=== PATIENT | female | born 2000 | race African-American/Black ===

== ENCOUNTER 2024-12-20 10:23 | Inpatient (IN) | payer MEDICAID, OTHER ==
[~2024-12-20] VITALS: Ht 144.8 cm; Wt 36.0 kg
[2024-12-20] VITALS (24 sets, daily range): BP systolic 86–183; BP diastolic 44–108; PULSE 59–111; RESP 6–21; TEMP 94.5–97.3; O2SAT 89–98
--- NOTE | 2024-12-20 10:45 | ED.PDOC ---
History of Present Illness HPI Comments 24 year old female was BIB Father and Aunt for the c/c of Hypotension. Father states that pt was at her Physical Therapist this am when her BP ran 89/44 and was advised to come to the ED for evaluation. Pt was noted to have a BP of 93/56 upon triage assessment and father notes that is pt's baseline. Pt is noted to have a Hx of Seizures and is wheelchair bound. No other symptoms or modifying factors reported at this time. Time Seen by MD: 10:41 Reviewed Notes: Nurses Notes, Medications, Allergies Allergies: Coded Allergies: NO KNOWN ALLERGIES (Unverified , 12/20/24) Information Source: Relative (Mother) Mode of Arrival: Wheelchair Severity: Mild Timing: Hours Duration: Since onset, Hours Prehospital treatment: None Past Medical History PAST MEDICAL HISTORY: Seizures HOSPITAL CARRIER History: No Pertinent HOSPITAL CARRIER History Family History Family History: No family hx of DM Social History Smoker: Non-Smoker Alcohol: Denies ETOH Use Drugs: Denies Drug Use Lives In: Home Constitutional: denies: chills, diaphoresis, fatigue, fever, malaise, sweats, weakness, others EENTM: denies: blurred vision, double vision, ear bleeding, ear discharge, ear drainage, ear pain, ear ringing, eye pain, eye redness, hearing loss, mouth pain, mouth swelling, nasal discharge, nose bleeding, nose congestion, nose pain, photophobia, tearing, throat pain, throat swelling, voice changes, others Respiratory: denies: cough, hemoptysis, orthopnea, SOB at rest, shortness of breath, SOB with excertion, stridor, wheezing, others Cardiovascular: reports: others (hypotension); denies: chest pain, dizzy spells, diaphoresis, Dyspnea on exertion, edema, irregular heart beat, left arm pain, lightheadedness, palpitations, PND, syncope Gastrointestinal: denies: abdomen distended, abdominal pain, blood streaked bowels, constipated, diarrhea, dysphagia, difficulty swallowing, hematemesis, melena, nausea, poor appetite, poor fluid intake, rectal bleeding, rectal pain, vomiting, others Genitourinary: denies: abnormal vagina bleeding, burning, dyspareunia, dysuria, flank pain, frequency, hematuria, incontinence, pain, , vagina discharge, urgency, others Neurological: denies: dizziness, fainting, headache, left sided numbness, left sided weakness, numbness, paresthesia, pre-existing deficit, right sided numbness, right sided weakness, seizure, speech problems, tingling, tremors, weakness, others Musculoskeletal: denies: back pain, gout, joint pain, joint swelling, muscle pain, muscle stiffness, neck pain, others Integumetry: denies: bruises, change in color, change in hair/nails, dryness, laceration, lesions, lumps, rash, wounds, others Allergic/Immunocompromised: denies: Difficulty Healing, Frequent Infections, Hives, Itching, others Hematologic/Lymphatic: denies: anemia, blood clots, easy bleeding, easy bruising, swollen glands, others Endocrine: denies: excessive hunger, excessive sweating, excessive thirst, excessive urination, flushing, intolerance to cold, intolerance to heat, unexplained weight gain, unexplained weight loss, others Psychiatric: denies: anxiety, bipolar disorder, depression, hopeless, panic disorder, schizophrenia, sleepless, suicidal, others All Other Systems: Reviewed and Negative Physical Exam General Appearance: Moderate Distress, No Apparent Distress HEENT: Pale Conjuntivae (L), Pale Conjuntivae (R), Pharynx Normal, TMs Normal Neck: Full Range of Motion, Non-Tender, Normal, Normal Inspection Respiratory: Chest Non-Tender, Lungs Clear, No Accessory Muscle Use, No Respiratory Distress, Normal Breath Sounds Cardiovascular: Bradycardia, No Edema, No JVD, No Murmur, No Gallop Breast Exam: Deferred Gastrointestinal: No Organomegaly, Non Tender, No Pulsatile Mass, Normal Bowel Sounds, Soft, Other (G-tube) Genitalia: Deferred Pelvic: Deferred Rectal: Deferred Extremities: No pedal edema, Other (Contractures from cerebral palsy) Musculoskeletal : Apperance: Normal Neurologic: Motor Weakness Cerebellar Function: Unable to Test Reflexes: NOT DONE Skin: Dry, Pallor, Warm Lymphatic: No Adenopathy Was a procedure done? Was a procedure done?: No EKG EKG : Pulse Rate (adult): 58 Cornucopia: Normal Cardiac Rhythm: NSR Block: None ST: Nonsp Differential Dx Considerations may include: Sepsis, generalized weakness, electrolyte imbalance, cerebral palsy X-Ray, Labs, Meds, VS Vital Signs Date Time Temp Pulse Resp B/P (MAP) Pulse Ox O2 Delivery O2 Flow Rate FiO2 12/20/24 12:00 58 12/20/24 12:00 62 12 102/63 (76) 95 12/20/24 10:50 94.2 55 20 93/56 (68) 100 94.2 Lab Test 12/20/24 12:03 12/20/24 11:15 Range/Units Urine Color Yellow Yellow Urine Clarity Clear Clear Urine pH 6.5 5.0-9.0 Urine Specific [place] 1.025 1.001-1.035 Urine Protein Negative Negative Urine Ketones Negative Negative Urine Blood Negative Negative /uL Urine Nitrite Negative Negative Urine Bilirubin Negative Negative Urine Urobilinogen Normal Negative mg/dL Urine Leukocyte Esterase Negative Negative /uL Urine RBC 1 0 - 4 /hpf Urine Microscopic WBC < 1 0-5 /HPF Urine Squamous Epithelial Cells Few <5 /hpf Urine Bacteria Few H None Seen /hpf Urine Mucus Few None Seen Urine Glucose Normal Normal mg/dL White Blood Count 3.8 L 4.4-10.8 10^3/uL Red Blood Count 4.91 4.0-5.20 10^6/uL Hemoglobin 15.1 12.2-16.2 g/dL Hematocrit 45.8 36.0-46.0 % Mean Corpuscular Volume 93.3 80.0-100.0 fL Mean Corpuscular Hemoglobin 30.8 28.0-32.0 pg Mean Corpuscular Hemoglobin Concent 33.1 32.0-36.0 g/dL Red Cell Distribution Width 16.3 H 11.8-14.3 % Platelet Count 149 140-450 10^3/uL Mean Platelet Volume 10.5 6.9-10.8 fL Neutrophils (%) (Auto) 45.8 37.0-80.0 % Lymphocytes (%) (Auto) 41.5 10.0-50.0 % Monocytes (%) (Auto) 8.3 0.0-12.0 % Eosinophils (%) (Auto) 4.0 0.0-7.0 % Basophils (%) (Auto) 0.4 0.0-2.0 % Neutrophils # (Auto) 1.7 1.6-8.6 10 ^3/uL Lymphocytes # (Auto) 1.6 0.4-5.4 10 ^3/uL Monocytes # (Auto) 0.3 0-1.3 10 ^3/uL Eosinophils # (Auto) 0.2 0-0.8 10 ^3/uL Basophils # (Auto) 0 0-0.2 10 ^3/uL Nucleated Red Blood Cells 0.3 % Sodium Level 138 136-145 mmol/L Potassium Level 3.1 L 3.5-5.1 mmol/L Chloride Level 106 98-107 mmol/L Carbon Dioxide Level 22 20-31 mmol/L Anion Gap 10 5-15 Blood Urea Nitrogen 11 9-23 mg/dL Creatinine 0.32 L 0.550-1.02 mg/dL Glomerular Filtration Rate Calc 150 >90 mL/min BUN/Creatinine Ratio 34.4 H 10.0-20.0 Serum Glucose 74 74-106 mg/dL Lactic Acid Level 2.3 *H 0.4-2.0 mmol/L Calcium Level 10.1 8.7-10.4 mg/dL Current Medications Medications (Trade) Dose Ordered Sig/Reggie Route Start Time Stop Time Status Last Admin Sodium Chloride 1,000 ml @ 1,000 mls/hr Q1H ONCE IV 12/20/24 12:00 12/20/24 12:59 DC 12/20/24 12:09 Ceftriaxone Sodium 50 ml @ 100 mls/hr ONCE ONCE IV 12/20/24 12:00 12/20/24 12:29 DC 12/20/24 12:11 Vancomycin HCl 200 ml @ 200 mls/hr ONCE ONCE IV 12/20/24 12:00 12/20/24 12:59 DC 12/20/24 12:37 IMPRESSION: 1. Central interstitial prominence may be due to reactive airways disease or CHF. The lungs are otherwise clear. 2. Postoperative changes as detailed above. The patient's CBC is within normal limits The chemistry panel shows hypokalemia at 3.1 We did give the patient potassium IV piggyback The patient was given normal saline as a bolus The patient was also started on Rocephin and vancomycin after blood cultures were done The patient's lactic acid level is elevated at 2.3 The patient was somewhat hypothermic but the family states that the patient is typically running with a temperature of about 95. At this time, the patient is being admitted to the hospitalist Images Reviewed?: Images reviewed and evaluated by me Time of 1ST Reevaluation: 11:11 Reevaluation 1ST: Unchanged Patient Education/Counseling: Diagnosis, Treatment, Prognosis Family Education/Counseling: Diagnosis, Treatment, Prognosis SEPSIS Sepsis Screen Physician Orders Blood Culture (12/20/24 10:52) Heplock Iv (12/20/24 ) Chest Portable (12/20/24 11:55) [place] (12/20/24 ) Potassium Chl 20meq/100ml (12/20/24 13:00) Vital Signs Date Time Temp Pulse Resp B/P (MAP) Pulse Ox O2 Delivery O2 Flow Rate FiO2 12/20/24 12:00 58 12/20/24 12:00 62 12 102/63 (76) 95 12/20/24 10:50 94.2 55 20 93/56 (68) 100 94.2 Laboratory Tests Test 12/20/24 11:15 Lactic Acid Level 2.3 mmol/L (0.4-2.0) *H White Blood Count 3.8 10^3/uL (4.4-10.8) L Medications Medications Dose Ordered Sig/Reggie Route Start Time Stop Time Status Last Admin Dose Admin Ceftriaxone Sodium 50 ml @ 100 mls/hr ONCE ONCE IV 12/20/24 12:00 12/20/24 12:29 DC 12/20/24 12:11 Sodium Chloride 1,000 ml @ 1,000 mls/hr Q1H ONCE IV 12/20/24 12:00 12/20/24 12:59 DC 12/20/24 12:09 Vancomycin HCl 200 ml @ 200 mls/hr ONCE ONCE IV 12/20/24 12:00 12/20/24 12:59 DC 12/20/24 12:37 Departure 1 Departure Time of Disposition: 13:03 Impression: Primary Impression: Hypotension Qualified Codes: I95.9 - Hypotension, unspecified Additional Impressions: Elevated lactic acid level Cerebral palsy Qualified Codes: G80.9 - Cerebral palsy, unspecified Bradycardia Hypokalemia Disposition: ADMITTED INPATIENT Admit to: Tele Condition: Fair Critical Care Note Critical Care Time?: Yes (55 min-critical care time only) Stability Stability form required: Yes Unstable for transfer: Telemetry monitoring (Telemetry monitoring required), ED Physician Assesment (Clinical assesment) Heart Score Heart Score: Heart Score Response (Comments) Value History N/A 0 EKG N/A 0 Age N/A 0 Risk Factors N/A 0 Troponin N/A 0 Total 0 I personally scribed for GOVIND,GHAZALA B MD ([email or web address]) on 12/20/24 at 10:45. Electronically submitted by Thomas López ([email or web address]). I personally scribed for GHAZALA FAUST MD ([email or web address]) on 12/20/24 at 12:35. Electronically submitted by Thomas López ([email or web address]). GHAZALA FAUST MD Dec 20, 2024 10:45
[2024-12-20 11:34] LABS: Hematocrit 45.8 % (36.0-46.0); Hemoglobin 15.1 g/dL (12.2-16.2); Mean Corpuscular Hemoglobin 30.8 pg (28.0-32.0); Mean Corpuscular Volume 93.3 fL (80.0-100.0); Nucleated Red Blood Cells % 0.3 %
[2024-12-20 11:42] LABS: Chloride 106 mmol/L (98-107); Sodium 138 mmol/L (136-145)
[2024-12-20 11:43] LABS: Anion Gap 10 (5-15); Calcium 10.1 mg/dL (8.7-10.4); Carbon Dioxide 22 mmol/L (20-31)
[2024-12-20 11:44] LABS: Potassium 3.1 mmol/L (3.5-5.1)
[2024-12-20 11:48] LABS: BUN/Creatinine Ratio 34.4 (10.0-20.0); Blood Urea Nitrogen 11 mg/dL (9-23); Glucose 74 mg/dL (74-106)
[2024-12-20 11:51] LABS: Lactic Acid w/Reflex 2.3 mmol/L (0.4-2.0)
[2024-12-20] MEDS: SODIUM CHLORIDE 0.9% 1,000 ML IV ONE ×3 (12:09→15:12)
[2024-12-20] MEDS: cefTRIAXone 1GM/50ML D5W 50 ML IV ONE (12:11)
[2024-12-20 12:23] LABS: Urine Protein, UAD Negative (Negative)
--- NOTE | 2024-12-20 12:33 | DVH ---
EXAM: XY CHEST PORTABLE HISTORY: weakness COMPARISON: None TECHNIQUE: Portable upright AP view of the chest was performed. FINDINGS: There is central interstitial prominence. No consolidative infiltrates or pneumothorax. The heart is not enlarged. There are postoperative changes tracheostomy, thoracolumbar posterior fusion, implanted pain pump overlying the right lower abdomen, and PEG tube vs jejunostomy tube. IMPRESSION: 1. Central interstitial prominence may be due to reactive airways disease or CHF. The lungs are othe rwise clear. 2. Postoperative changes as detailed above.
[2024-12-20] MEDS: VANCOMYCIN 1GM/200ML PM 200 ML IV ONE (12:37)
[2024-12-20] MEDS: POTASSIUM CHL 20MEQ/100ML 100 ML IV ONE (15:13)
[2024-12-20] MEDS ORDERED: ALUM1SUS16 GT (15:23)
[2024-12-20] MEDS ORDERED: [UNRECOGNIZED DRUG - CODE] (15:23)
[2024-12-20] MEDS ORDERED: LORA-622 PEG (15:23)
[2024-12-20] MEDS ORDERED: TOPI100T29 PEG (15:23)
--- NOTE | 2024-12-20 15:35 | DVHHP2 ---
History of Present Illness Reason for Visit: Low BP History of Present Illness Xavier Wang is a 24-year-old female with past medical history of cerebral palsy, spasticity, seizures, and chronic respiratory failure, who was brought to the hospital for Low BP. Patient was at physical therapy today and found to have low blood pressure so her father brought her to the hospital. On arrival to the ER she is bradycardic, hypothermic, and hypotensive. She does respond well to fluids with her BP increasing and her HR increasing. She is placed on a bear hugger, rectal thermometer, and blankets for her temperature. Patient lives with her father and aunt. Both are at the bedside. They state her temperature usually runs low around 95-96, but not this low, and that her HR does drop when she sleeps, but not this low. Patient is non verbal and mostly bed bound at her baseline. She has a tracheostomy and peg tube for feedings and mediations. Once the fluids finished from ER her HR and BP began to drop again. I ordered fluids to run at 1255ml/hl and her VS improved. If she is not able to maintain her BP and HR after this liter I will start a vasopressor. Family states she had diarrhea and lose stools for about 1 week. Pulmonary: Other (Chronic respiratory failure) CONFERENCE SERVICES DIRECTOR: Other (cerebral palsy, spasticity, seizures) Past Surgical History: Other (tracheostomy, back, Left hip, Baclofen pump, Peg tube) Smoke: No ALCOHOL: none Drugs: None Lives: with Family Domestic Violence: Neg Review of Systems Constitutional: Yes: Other (hypothermia); No: Fever, Chills, Sweats, Weakness, Malaise Eyes: No: Pain, Vision change, Conjunctivae inflammation, Eyelid inflammation, Other, Redness ENT: No: Ear pain, Ear discharge, Nose pain, Nose discharge, Nose congestion, Mouth pain, Mouth swelling, Throat pain, Throat swelling, Other Respiratory: No: Cough, Dry, Shortness of breath, SOB with excertion, Wheezing, Hemoptysis, Pleuritic Pain, Sputum, Wheezing, Other Cardiovascular: Other (hypotension); No: Chest Pain, Palpitations, Orthopnea, Paroxysmal Noc. Dyspnea, Edema, Lt Headedness Gastrointestinal: Diarrhea; No: Nausea, Vomiting, Abdominal Pain, Constipation, Melena, Hematochezia, Other Genitourinary: No Dysuria, No Frequency, No Incontinence, No Hematuria, No Retention, No Other Musculoskeletal: No: other, neck pain, shoulder pain, arm pain, back pain, hand pain, leg pain, foot pain Skin: No: Rash, Lesions, Jaundice, Bruising, Other Neurological: No: Weakness, Numbness, Incoordination, Change in speech, Confusion, Seizures, Other Allergies: Coded Allergies: NO KNOWN ALLERGIES (Unverified , 12/20/24) Medications Current Medications Medications Dose Ordered Sig/Reggie Route Start Time Stop Time Status Last Admin Dose Admin Metronidazole 100 ml @ 100 mls/hr Q8HR IV 12/20/24 22:00 UNV Exam Vital Signs Vital Signs Date Time Temp Pulse Resp B/P (MAP) Pulse Ox O2 Delivery O2 Flow Rate FiO2 12/20/24 14:00 68 12 100/41 (60) 94 12/20/24 10:50 94.2 94.2 General Appearance: Alert, moderate distress HEENT: Atraumatic, PERRLA Respiratory: Other (tracheostomy, ) Cardiovascular: Other (tracheostomy) Abdominal: Normal bowel sounds, Soft, Other (Peg tube, diarrhea) Skin: No rashes, No breakdown, No significant lesion Neuro: Other (non verbal and bedbound at baseline) Labs/Xrays Labs Test 12/20/24 13:17 12/20/24 12:03 12/20/24 11:15 Range/Units Lactic Acid Level 2.0 0.4-2.0 mmol/L Urine Color Yellow Yellow Urine Clarity Clear Clear Urine pH 6.5 5.0-9.0 Urine Specific [place] 1.025 1.001-1.035 Urine Protein Negative Negative Urine Ketones Negative Negative Urine Blood Negative Negative /uL Urine Nitrite Negative Negative Urine Bilirubin Negative Negative Urine Urobilinogen Normal Negative mg/dL Urine Leukocyte Esterase Negative Negative /uL Urine RBC 1 0 - 4 /hpf Urine Microscopic WBC < 1 0-5 /HPF Urine Squamous Epithelial Cells Few <5 /hpf Urine Bacteria Few H None Seen /hpf Urine Mucus Few None Seen Urine Glucose Normal Normal mg/dL White Blood Count 3.8 L 4.4-10.8 10^3/uL Red Blood Count 4.91 4.0-5.20 10^6/uL Hemoglobin 15.1 12.2-16.2 g/dL Hematocrit 45.8 36.0-46.0 % Mean Corpuscular Volume 93.3 80.0-100.0 fL Mean Corpuscular Hemoglobin 30.8 28.0-32.0 pg Mean Corpuscular Hemoglobin Concent 33.1 32.0-36.0 g/dL Red Cell Distribution Width 16.3 H 11.8-14.3 % Platelet Count 149 140-450 10^3/uL Mean Platelet Volume 10.5 6.9-10.8 fL Neutrophils (%) (Auto) 45.8 37.0-80.0 % Lymphocytes (%) (Auto) 41.5 10.0-50.0 % Monocytes (%) (Auto) 8.3 0.0-12.0 % Eosinophils (%) (Auto) 4.0 0.0-7.0 % Basophils (%) (Auto) 0.4 0.0-2.0 % Neutrophils # (Auto) 1.7 1.6-8.6 10 ^3/uL Lymphocytes # (Auto) 1.6 0.4-5.4 10 ^3/uL Monocytes # (Auto) 0.3 0-1.3 10 ^3/uL Eosinophils # (Auto) 0.2 0-0.8 10 ^3/uL Basophils # (Auto) 0 0-0.2 10 ^3/uL Nucleated Red Blood Cells 0.3 % Sodium Level 138 136-145 mmol/L Potassium Level 3.1 L 3.5-5.1 mmol/L Chloride Level 106 98-107 mmol/L Carbon Dioxide Level 22 20-31 mmol/L Anion Gap 10 5-15 Blood Urea Nitrogen 11 9-23 mg/dL Creatinine 0.32 L 0.550-1.02 mg/dL Glomerular Filtration Rate Calc 150 >90 mL/min BUN/Creatinine Ratio 34.4 H 10.0-20.0 Serum Glucose 74 74-106 mg/dL Calcium Level 10.1 8.7-10.4 mg/dL EXAM: XY CHEST PORTABLE FINDINGS: There is central interstitial prominence. No consolidative infiltrates or pneumothorax. The heart is not enlarged. There are postoperative changes tracheostomy, thoracolumbar posterior fusion, implanted pain pump overlying the right lower abdomen, and PEG tube vs jejunostomy tube. IMPRESSION: 1. Central interstitial prominence may be due to reactive airways disease or CHF. The lungs are otherwise clear. 2. Postoperative changes as detailed above. Assessment/Plan Assessment/Plan Assessment: Hypotension, Hypokalemia, Bradycardia, Hypothermia, Possible pericarditis, Cerebral Palsy, Seizures, Plan: Admit to Tele, Cardiology consult, Dietary consult, ECHO, Send stool for C-Diff, WBC, occult blood, Blood cultures, Urine cultures, Sputum cultures, IV hydration, IV antibiotics, Family to bring in her formula for tube feedings, Home medications reconciled, Plan discussed with: Patient, Other (Father, Aunt) My Orders Orders - RUBI PAUL Procedure Category Date Status Time Admit ADMIT 12/20/24 Transmitted 14:41 Code Status CODE 12/20/24 Transmitted 14:41 Complete Blood Count LAB 12/21/24 Verified 04:00 Comprehensive LAB 12/21/24 Verified Metabolic Panel 04:00 Npo (Nothing By DIET 12/20/24 Transmitted Mouth) Diet Dinner Condition: Serious PRINCE 12/20/24 In Process 14:41 Tube Feeding DIET 12/20/24 Transmitted Dinner * Dietary Consult CONS 12/20/24 Transmitted 14:41 Metronidazole PHA 12/20/24 Logged 500mg/100ml (Flagyl 22:00 Sodium Chloride 0.9% PHA 12/20/24 Logged 14:45 Potassium Chloride PHA 12/20/24 Logged (Potassium Chloride). 14:45 Respiratory Culture MARCELO 12/20/24 Logged W/ Gs 14:49 Urine Bacterial MARCELO 12/20/24 Logged Culture 14:49 Sodium Chloride 0.9% PHA 12/20/24 In Process 15:00 Date of Service: Dec 20, 2024 Billing Provider: RUBI PAUL Common Visit Codes: [id number] INP/OBS CARE (MOD) RUBI PAUL Dec 20, 2024 15:35
--- NOTE | 2024-12-20 17:13 | DVHINCON2 ---
Date Seen: Dec 20, 2024 Referring Physician ARISTIDES Rahman Reason for Consultation Acute pericarditis, hypotension History of Present Illness This is a 24-year-old female who presented to the emergency room via EMS with a chief complaint of hypotension. Information obtained from and and father at bedside who reports the patient was found with a blood pressure of 84/49 mmHg raising concerns as her normal SBP is in the 90s mmHg. Besides the reported hypotension they also reported a one time event of diarrhea last week. They deny any other symptoms or concerns. She underwent a twelve-lead electrocardiogram suggestive of acute pericarditis. The patient was also found to be hypothermic with a temperature of 91.4 F rectally. Per father, her normal core temperature is in between 94-96 F. Significant medical history includes cerebral palsy with PEG tube placement and bed-bound status, spasticity, chronic respiratory failure with tracheostomy tube in place, baclofen pump, and history of pediatric seizures. Past Medical History Past medical history reviewed. No other significant than mentioned above. Past Surgical History Tracheostomy tube Peg tube in place Baclofen pump Left hip Back Family History Family history reviewed. Not significant for cardiovascular disease. Social History Per family, there is no use of illicit drugs, alcohol, or tobacco use. Allergies: Coded Allergies: NO KNOWN ALLERGIES (Unverified , 12/20/24) Home Meds Reported Medications Topiramate (Topamax) 100 Mg Tab, 1 TAB PEG BID, #60 TAB 1 Refill 12/20/24 Loratadine (Claritin) 10 Mg Tab, 1 TAB PEG DAILY, #30 TAB 5 Refills 12/20/24 Phenylephrine HCl (Vipin-Synephrine Cold+Aller) 1 % Petty, 1 % NA BID, ML 12/20/24 Alum & Mag Hydrox-Simethicone (Mylanta Maximum Strength 400-400-40 mg/5Ml) 1 Jojo Jojo, 5 ML GT DAILY, ML 12/20/24 Home Meds Home medications reviewed. Current Medications Current Medications Medications (Trade) Dose Ordered Sig/Reggie Route PRN Reason Start Time Stop Time Status Last Admin Metronidazole 100 ml @ 100 mls/hr Q8HR IV 12/20/24 22:00 Loratadine (Claritin Tablet) 10 mg DAILY PEG 12/21/24 10:00 Phenylephrine HCl (Vipin-Synephrine 1% Nasal) 1 spr BID NA 12/20/24 22:00 Topiramate (Topamax) 100 mg BID PEG 12/20/24 22:00 Patient Own Medication 5 ml DAILY GT 12/21/24 10:00 UNV Review of Systems Constitutional: Hypotension Ears, Nose, & Throat: No symptom reported Eyes: No symptom reported Neurological: No symptoms reported Pulmonary/Respiratory: No symptom reported Cardiovascular: No symptom reported Gastrointestinal: Diarrhea Genitourinary: No symptom reported Musculoskeletal: No symptom reported Skin: No symptom reported Psychiatric: No symptom reported Endocrine: No symptom reported Hemotologic/Lymphatic: No symptom reported Vital Signs Vital Signs Date Time Temp Pulse Resp B/P (MAP) Pulse Ox O2 Delivery O2 Flow Rate FiO2 12/20/24 16:00 91.4 54 12 95/46 (62) 94 91.4 12/20/24 11:00 Room Air* 0 21 Physical Exam General Appearance: Withdrawn. Spastic/contracted. Nonverbal. Growth and developmental delay present Head Exam: Normal inspection Neck Exam: Normal inspection. Pulmonary/Respiratory: Diminished bilateral breath sounds. Tracheostomy tubed in place Cardiovascular/Chest: Regular rate and rhythm. S1, S2. Diffuse ST elevation suggestive of acute pericarditis. No murmurs. No JVD. Peripheral Pulses: 2+ Radial (R). 2+ Radial (L). 2+ Pedal (R). 2+ Pedal (L) Abdominal Exam: Normal bowel sounds. Soft. Ankle Exam: Negative ankle edema Lower extremities: Negative lower extremity edema Neuro/Mental Status: Withdrawn. Non-verbal Thoughts/Psych: Unable to assess Appearance: In no acute distress Skin Exam: Normal inspection. Normal color. Cold. Dry Labs/Diagnostic Data Labs Test 12/20/24 13:17 12/20/24 12:03 12/20/24 11:15 Range/Units Lactic Acid Level 2.0 0.4-2.0 mmol/L Urine Color Yellow Yellow Urine Clarity Clear Clear Urine pH 6.5 5.0-9.0 Urine Specific [place] 1.025 1.001-1.035 Urine Protein Negative Negative Urine Ketones Negative Negative Urine Blood Negative Negative /uL Urine Nitrite Negative Negative Urine Bilirubin Negative Negative Urine Urobilinogen Normal Negative mg/dL Urine Leukocyte Esterase Negative Negative /uL Urine RBC 1 0 - 4 /hpf Urine Microscopic WBC < 1 0-5 /HPF Urine Squamous Epithelial Cells Few <5 /hpf Urine Bacteria Few H None Seen /hpf Urine Mucus Few None Seen Urine Glucose Normal Normal mg/dL White Blood Count 3.8 L 4.4-10.8 10^3/uL Red Blood Count 4.91 4.0-5.20 10^6/uL Hemoglobin 15.1 12.2-16.2 g/dL Hematocrit 45.8 36.0-46.0 % Mean Corpuscular Volume 93.3 80.0-100.0 fL Mean Corpuscular Hemoglobin 30.8 28.0-32.0 pg Mean Corpuscular Hemoglobin Concent 33.1 32.0-36.0 g/dL Red Cell Distribution Width 16.3 H 11.8-14.3 % Platelet Count 149 140-450 10^3/uL Mean Platelet Volume 10.5 6.9-10.8 fL Neutrophils (%) (Auto) 45.8 37.0-80.0 % Lymphocytes (%) (Auto) 41.5 10.0-50.0 % Monocytes (%) (Auto) 8.3 0.0-12.0 % Eosinophils (%) (Auto) 4.0 0.0-7.0 % Basophils (%) (Auto) 0.4 0.0-2.0 % Neutrophils # (Auto) 1.7 1.6-8.6 10 ^3/uL Lymphocytes # (Auto) 1.6 0.4-5.4 10 ^3/uL Monocytes # (Auto) 0.3 0-1.3 10 ^3/uL Eosinophils # (Auto) 0.2 0-0.8 10 ^3/uL Basophils # (Auto) 0 0-0.2 10 ^3/uL Nucleated Red Blood Cells 0.3 % Sodium Level 138 136-145 mmol/L Potassium Level 3.1 L 3.5-5.1 mmol/L Chloride Level 106 98-107 mmol/L Carbon Dioxide Level 22 20-31 mmol/L Anion Gap 10 5-15 Blood Urea Nitrogen 11 9-23 mg/dL Creatinine 0.32 L 0.550-1.02 mg/dL Glomerular Filtration Rate Calc 150 >90 mL/min BUN/Creatinine Ratio 34.4 H 10.0-20.0 Serum Glucose 74 74-106 mg/dL Calcium Level 10.1 8.7-10.4 mg/dL Assessment Acute pericarditis Rule out structural/congenital heart disease Likely hypothermia induced bradycardia Possible sepsis with mild degree of shock Cerebral palsy with PEG tube/tracheostomy/bed-bound status Hypokalemia Plan/Recommendation (Dr. Daugherty) We will continue further cardiac evaluation with a transthoracic echocardiogram with a bubble study to evaluate cardiac function. In the meantime, check ESR/CRP levels as well as obtaining influenza A&B and COVID-19 samples. Patient will be initiated on pericarditis treatment including colchicine 0.6 mg GT QD x 3 mos, ibuprofen 600 mg GT q8h for 1 week, and pantoprazole 40 mg QD. Monitor ECG changes closely and notify. Repeat ECG in the morning. Continue warming measures for a temperature in between 94-96 F (normal core temperature for patient). Replete electrolytes as necessary. Septic workup per primary care team. Further orders per clinical course. Thank you for allowing us to participate in this patient's care. Please call if you have any questions or concerns. This medical document was created using an electronic medical record system with voice recognition software and computerized dictation system. Although this document has been carefully reviewed, there might still be some phonetic and typographical errors. Occasional wrong-word or ``sound-alike substitutions may have occurred due to the inherent limitations of voice recognition software. These areas are purely typographical due to imperfections of the software programs and do not reflect any compromise in the patient's medical care. Please read the chart carefully and recognize, using context, where these substitutions have occurred. Plan discussed with: Other (Father and aunt) NYHA Physical activity limitations: NA Date of Service: Dec 20, 2024 Billing Provider: GINO ANGELO Cardiology Common Codes: [id number] INP/OBS CARE (High) GINO ANGELO Dec 20, 2024 17:13
[2024-12-20] MEDS: POTASSIUM CHLORIDE 40 MEQ, LIDOCAINE 1% (LOCAL ANESTH.) 4 ML in SODIUM CHL 0.9% 250 ML IV ONE (17:20)
[2024-12-20 17:24] LABS: Triglycerides 110.0 mg/dL (< 150)
[2024-12-20 17:26] LABS: Cholesterol 161.0 mg/dL (< 200)
[2024-12-20 17:32] LABS: HDL Cholesterol 36.0 mg/dL (40-59); Magnesium 1.4 mg/dL (1.6-2.6)
[2024-12-20 17:44] LABS: COVID19 ANTIGEN SOFIA FIA NEGATIVE (NEGATIVE)
[2024-12-20] MEDS: PANTOPRAZOLE 40 MG/10 ML VIAL INJ IV ONE (17:53)
[2024-12-20] MEDS: FREE WATER PEG SCH (20:00)
[2024-12-20] MEDS ORDERED: POTASSIUM CHL 20 Meq TABLET PO ONE (21:15)
[2024-12-20] MEDS: PHENYLEPHRINE HCL 1 % NASAL SPRAY 15ML SCH (22:00)
--- NOTE | 2024-12-20 22:11 | DVHSR ---
APPROVED REPORT EXAM: Two-dimensional and M-mode echocardiogram with Doppler and color Doppler. Blood Pressure: 95/46 mmHg INDICATION Acute pericarditis RISK FACTORS Height: 4'1", Weight: 158 DIMENSIONS LVDd3.1 (3.8-5.7cm)LA (2D)2.6 (1.9-4.0cm)Aortic Root2.0 (2.0-3.7cm) LVDs2.1 (2.5-4.0cm)LA (MM) (1.9-4.0cm)Aortic Cusp Exc1.3 (1.5-2.0cm) EF (%) 60.0 (55-70%)Rt. Atrium2.5 (1.9-4.0cm)Asc. Aorta cm IVSd0.7 (0.7-1.1cm)RV (D) (1.8-2.4cm) PWd0.6 (0.7-1.1cm) Mitral Valve MitralMitral Stenosis E wave0.77m/sMV Mean GR.mmHg A wave0.70m/sMV Peak GR.mmHg E/A ratio1.12D MVAcm2 DECEL [id number] 1/2 Timems Aortic Valve Aortic ValveAortic Stenosis V10.73m/Jumana Mean GR.2mmHg V20.90m/Jumana Peak GR.3mmHg LVOT Diameter1.5 (1.8-2.4cm)Doppler AVA1.43cm2 Other Information Technically limited study due to body habitus. Conclusion LV EF IS 65 % AND IS NORMAL NORMAL VALVES NORMAL RV FUNCTION NO EFFUSION
[2024-12-20] MEDS: MAGNESIUM SULFATE 1GM/100ML 100 ML IV SCH (23:00)
[2024-12-20] MEDS: COLCHICINE 0.6 MG CAP GT ONE (23:12)
[2024-12-20] MEDS: IBUPROFEN 100MG/5ML ORAL SUSP 100 MG/5 ML UD GT SCH (23:12)
[2024-12-20] MEDS: PHENobarbital 20 MG/5 ML UD GT SCH (23:13)
[2024-12-20] MEDS: POTASSIUM EFFERVESENT TAB 25 MEQ GT ONE (23:13)
[2024-12-20] MEDS: TOPIRAMATE 100 MG TAB PEG SCH (23:14)
--- NOTE | 2024-12-20 23:27 | DVHINCON2 ---
Date Seen: Dec 20, 2024 Referring Physician ARISTIEDS Rahman Reason for Consultation Acute pericarditis, hypotension History of Present Illness This is a 24-year-old female with a PMH of cerebral palsy with PEG tube placement and bed-bound status, spasticity, chronic respiratory failure with tracheostomy tube in place, baclofen pump, and history of pediatric seizures who presented to the emergency room via EMS with a complaint of hypotension. Information obtained from and and father at bedside who reports the patient was found with a blood pressure of 84/49 mmHg raising concerns as her normal SBP is in the 90s mmHg. Besides the reported hypotension they also reported a one time event of diarrhea last week. They deny any other symptoms or concerns. She underwent a twelve-lead electrocardiogram suggestive of acute pericarditis. The patient was also found to be hypothermic with a temperature of 91.4 F rectally. Per father, her normal core temperature is in between 94-96 F. Patient was admitted to the hospital. I am asked to consult on this patient. Past Medical History Past medical history reviewed. No other significant than mentioned above. Past Surgical History Tracheostomy tube Peg tube in place Baclofen pump Left hip Back Family History: Diabetes mellitus G8 FATHER Hypertension G8 FATHER Allergies: Coded Allergies: NO KNOWN ALLERGIES (Unverified , 12/20/24) Home Meds Reported Medications Topiramate (Topamax) 100 Mg Tab, 1 TAB PEG BID, #60 TAB 1 Refill 12/20/24 Loratadine (Claritin) 10 Mg Tab, 1 TAB PEG DAILY, #30 TAB 5 Refills 12/20/24 Phenylephrine HCl (Vipin-Synephrine Cold+Aller) 1 % Petty, 1 % NA BID, ML 12/20/24 Alum & Mag Hydrox-Simethicone (Mylanta Maximum Strength 400-400-40 mg/5Ml) 1 Jojo Jojo, 5 ML GT DAILY, ML 12/20/24 Current Medications Current Medications Medications (Trade) Dose Ordered Sig/Reggie Route PRN Reason Start Time Stop Time Status Last Admin Metronidazole 100 ml @ 100 mls/hr Q8HR IV 12/20/24 22:00 12/20/24 23:14 Loratadine (Claritin Tablet) 10 mg DAILY PEG 12/21/24 10:00 Phenylephrine HCl (Vipin-Synephrine 1% Nasal) 1 spr BID NA 12/20/24 22:00 Topiramate (Topamax) 100 mg BID PEG 12/20/24 22:00 12/20/24 23:14 Patient Own Medication 5 ml DAILY GT 12/21/24 10:00 UNV Al Hydrox/Mg Hydrox/Simethicone (Maalox Plus) 5 ml DAILY GT 12/21/24 10:00 Phenobarbital 36 mg BID GT 12/20/24 22:00 12/20/24 23:13 Colchicine (Colcrys) 0.6 mg DAILY GT 12/21/24 10:00 Ibuprofen (MOTRIN 100MG/5 mL ORAL SUSP) 800 mg Q8HR GT 12/20/24 22:00 12/20/24 23:12 Pantoprazole Sodium (Protonix) 40 mg DAILY IV 12/21/24 10:00 Patient Own Medication 150 ml QID PEG 12/20/24 20:00 UNV Purified Water 120 ml QID PEG 12/20/24 20:00 Magnesium Sulfate/ Dextrose 100 ml @ 100 mls/hr Q1HR IV 12/20/24 23:00 12/21/24 00:59 Review of Systems Constitutional: Hypotension Ears, Nose, & Throat: No symptom reported Eyes: No symptom reported Neurological: No symptoms reported Pulmonary/Respiratory: No symptom reported Cardiovascular: No symptom reported Gastrointestinal: Diarrhea Genitourinary: No symptom reported Musculoskeletal: No symptom reported Skin: No symptom reported Psychiatric: No symptom reported Endocrine: No symptom reported Hemotologic/Lymphatic: No symptom reported Vital Signs Vital Signs Date Time Temp Pulse Resp B/P (MAP) Pulse Ox O2 Delivery O2 Flow Rate FiO2 12/20/24 19:00 95.0 68 13 103/58 (73) 97 203.0 12/20/24 18:04 Room Air* 0 N/A Trach Collar Physical Exam GENERAL: Withdrawn. Spastic/contracted. Nonverbal. Growth and developmental delay present. EYES: PERRL, EOMI. Anicteric. HENT: Moist mucous membranes. LUNGS: Diminished bilateral breath sounds. Tracheostomy tubed in place CARDIOVASCULAR: Regular rate and rhythm. ABDOMEN: Soft, non-tender and non-distended. EXTREMITIES: No edema. SKIN: Warm, dry. Labs/Diagnostic Data Labs Test 12/20/24 17:44 12/20/24 17:14 12/20/24 13:17 12/20/24 12:03 Range/Units Erythrocyte Sedimentation Rate 15 0-20 mm/hr B-Type Natriuretic Peptide 10.25 0-100 pg/mL Influenza Type A Antigen Negative Negative Influenza Type B Antigen Negative Negative SARS-CoV-2 Antigen (Rapid) Negative NEGATIVE Lactic Acid Level 2.0 0.4-2.0 mmol/L Urine Color Yellow Yellow Urine Clarity Clear Clear Urine pH 6.5 5.0-9.0 Urine Specific [place] 1.025 1.001-1.035 Urine Protein Negative Negative Urine Ketones Negative Negative Urine Blood Negative Negative /uL Urine Nitrite Negative Negative Urine Bilirubin Negative Negative Urine Urobilinogen Normal Negative mg/dL Urine Leukocyte Esterase Negative Negative /uL Urine RBC 1 0 - 4 /hpf Urine Microscopic WBC < 1 0-5 /HPF Urine Squamous Epithelial Cells Few <5 /hpf Urine Bacteria Few H None Seen /hpf Urine Mucus Few None Seen Urine Glucose Normal Normal mg/dL Test 12/20/24 11:15 Range/Units White Blood Count 3.8 L 4.4-10.8 10^3/uL Red Blood Count 4.91 4.0-5.20 10^6/uL Hemoglobin 15.1 12.2-16.2 g/dL Hematocrit 45.8 36.0-46.0 % Mean Corpuscular Volume 93.3 80.0-100.0 fL Mean Corpuscular Hemoglobin 30.8 28.0-32.0 pg Mean Corpuscular Hemoglobin Concent 33.1 32.0-36.0 g/dL Red Cell Distribution Width 16.3 H 11.8-14.3 % Platelet Count 149 140-450 10^3/uL Mean Platelet Volume 10.5 6.9-10.8 fL Neutrophils (%) (Auto) 45.8 37.0-80.0 % Lymphocytes (%) (Auto) 41.5 10.0-50.0 % Monocytes (%) (Auto) 8.3 0.0-12.0 % Eosinophils (%) (Auto) 4.0 0.0-7.0 % Basophils (%) (Auto) 0.4 0.0-2.0 % Neutrophils # (Auto) 1.7 1.6-8.6 10 ^3/uL Lymphocytes # (Auto) 1.6 0.4-5.4 10 ^3/uL Monocytes # (Auto) 0.3 0-1.3 10 ^3/uL Eosinophils # (Auto) 0.2 0-0.8 10 ^3/uL Basophils # (Auto) 0 0-0.2 10 ^3/uL Nucleated Red Blood Cells 0.3 % Sodium Level 138 136-145 mmol/L Potassium Level 3.1 L 3.5-5.1 mmol/L Chloride Level 106 98-107 mmol/L Carbon Dioxide Level 22 20-31 mmol/L Anion Gap 10 5-15 Blood Urea Nitrogen 11 9-23 mg/dL Creatinine 0.32 L 0.550-1.02 mg/dL Glomerular Filtration Rate Calc 150 >90 mL/min BUN/Creatinine Ratio 34.4 H 10.0-20.0 Serum Glucose 74 74-106 mg/dL Hemoglobin A1c 4.8 <5.7 % A1C Calcium Level 10.1 8.7-10.4 mg/dL Magnesium Level 1.4 L 1.6-2.6 mg/dL Troponin I High Sensitivity 6 </=34 ng/L C-Reactive Protein High Sensitivity 1.34 H <1.0 mg/dL Triglycerides Level 110 < 150 mg/dL Cholesterol Level 161 < 200 mg/dL LDL Cholesterol 109 H < 100 mg/dL HDL Cholesterol 36 L 40-59 mg/dL Thyroid Stimulating Hormone (TSH) 2.80 0.55-4.78 uIU/mL Assessment Acute pericarditis. Rule out structural/congenital heart disease. Likely hypothermia induced bradycardia. Possible sepsis with mild degree of shock. Cerebral palsy with PEG tube/tracheostomy/bed-bound status. Hypokalemia. Plan/Recommendation I agree with your ongoing assessment and care of plan. Patient has been seen by Myriam Bellamy NP on my behalf. We have discussed the plan with the patient. We will continue further cardiac evaluation with a transthoracic echocardiogram with a bubble study to evaluate cardiac function. In the meantime, check ESR/CRP levels as well as obtaining influenza A&B and COVID-19 samples. Patient will be initiated on pericarditis treatment including colchicine 0.6 mg GT QD x 3 mos, ibuprofen 600 mg GT q8h for 1 week, and pantoprazole 40 mg QD. Monitor ECG changes closely and notify. Repeat ECG in the morning. C ontinue warming measures for a temperature in between 94-96 F (normal core temperature for patient). Replete electrolytes as necessary. Septic workup per primary care team. Further orders per clinical course. Additional plan as per the hospital course. Plan discussed with: Other NYHA Physical activity limitations: NA Date of Service: Dec 20, 2024 Billing Provider: LINDY CÁRDENAS MD Cardiology Common Codes: [id number] INP/OBS CARE (High) Cardiology Consultation Codes: [id number] CONSULT <80MIN LINDY CÁRDENAS MD Dec 20, 2024 23:27
[2024-12-21] VITALS (82 sets, daily range): BP systolic 71–132; BP diastolic 30–96; PULSE 43–107; RESP 0–33; TEMP 93.9–97.7; O2SAT 84–100
[2024-12-21] MEDS: ALBUMIN 25% 100 ML IV ONE (01:11)
[2024-12-21] MEDS: SODIUM CHLORIDE 0.9% 500 ML IV ONE (01:45)
[2024-12-21 05:51] LABS: Anion Gap 8 (5-15)
[2024-12-21 05:52] LABS: Chloride 113 mmol/L (98-107); Potassium 5.2 mmol/L (3.5-5.1); Sodium 142 mmol/L (136-145)
[2024-12-21 05:53] LABS: Calcium 8.3 mg/dL (8.7-10.4); Carbon Dioxide 21 mmol/L (20-31)
[2024-12-21 05:56] LABS: BUN/Creatinine Ratio 28.3 (10.0-20.0)
[2024-12-21 06:01] LABS: Alanine Aminotransferase 45 U/L (7-40); Albumin 3.8 g/dL (3.2-4.8); Alkaline Phosphatase 149 U/L (46-116); Bilirubin, Total < 0.2 mg/dL (0.2-1.0); Blood Urea Nitrogen 15 mg/dL (9-23); Glucose 94 mg/dL (74-106); Total Protein 6.0 g/dL (5.7-8.2)
[2024-12-21 06:57] LABS: Hematocrit 39.8 % (36.0-46.0); Hemoglobin 12.9 g/dL (12.2-16.2); Mean Corpuscular Hemoglobin 31.0 pg (28.0-32.0); Mean Corpuscular Volume 95.9 fL (80.0-100.0); Nucleated Red Blood Cells % 0.1 %
[2024-12-21] MEDS: [UNRECOGNIZED DRUG - MIXTURE] PEG SCH (09:00)
[2024-12-21] MEDS: COLCHICINE 0.6 MG CAP GT SCH (09:09)
[2024-12-21] MEDS: PANTOPRAZOLE 40 MG/10 ML VIAL INJ IV SCH (09:09)
[2024-12-21] MEDS: MAALOX PLUS or MAALOX 30 ML GT SCH (09:10)
[2024-12-21] MEDS: LORATADINE 10 MG TAB PEG SCH (09:11)
[2024-12-21] MEDS: SODIUM ZIRCONIUM CYCL 10 GM PAK GT ONE (09:18)
[2024-12-21] MEDS ORDERED: MAGNESIUM HYDROXIDE GT SCH (10:00)
[2024-12-21] MEDS ORDERED: ALUMINUM HYDROXIDE GT SCH (10:00)
[2024-12-21] MEDS ORDERED: SIMETHICONE GT SCH (10:00)
[2024-12-21] MEDS ORDERED: [UNRECOGNIZED DRUG - OTHER] GT SCH (10:00)
--- NOTE | 2024-12-21 10:08 | ECG ---
[facility] Test Date: 2024-12-20 Test Time: 12:42:02 Pat Name: PHOENIX BAUM Department: ED Room: [address] [place] [address] A Gender: F [employer] Director: SUSAN : 2000 Requested By: GINO ANGELO Order Number: [id number] Reading MD: Randal Toscano Measurements Intervals [place] Rate: 51 P: 27 AL: 177 QRS: 42 QRSD: 84 T: 63 QT: 489 QTc: 451 Interpretive Statements Sinus rhythm ST elevation suggests acute pericarditis Electronically Signed On 12-23-2024 9:48:46 PDT by Randal Toscano Please click the below link to view image of tracing.
--- NOTE | 2024-12-21 11:18 | DVHPN2 ---
Consult Progress Note Date Seen: Dec 21, 2024 Subjective Other Systems: No overnight cardiac events reported Objective vital signs Vital Sign Date Time Temp Pulse Resp B/P (MAP) Pulse Ox O2 Delivery O2 Flow Rate FiO2 12/21/24 09:12 97 Room Air* 0 21 12/21/24 06:40 97.2 98 16 118/71 (87) 207.0 Total Intake and Output 12/20/24 12/20/24 12/21/24 15:00 23:00 07:00 Intake Total 0 ml 400 ml Output Total 1 ml Balance 0 ml 399 ml medications Current Medications Medications Dose Ordered Sig/Reggie Route Start Time Stop Time Status Last Admin Dose Admin Metronidazole 100 ml @ 100 mls/hr Q8HR IV 12/20/24 22:00 12/21/24 06:20 100 MLS/HR Loratadine 10 mg DAILY PEG 12/21/24 10:00 Phenylephrine HCl 1 spr BID NA 12/20/24 22:00 Topiramate 100 mg BID PEG 12/20/24 22:00 12/21/24 09:09 100 MG Patient Own Medication 5 ml DAILY GT 12/21/24 10:00 UNV Al Hydrox/Mg Hydrox/Simethicone 5 ml DAILY GT 12/21/24 10:00 12/21/24 09:10 5 ML Phenobarbital 36 mg BID GT 12/20/24 22:00 12/21/24 09:10 36 MG Colchicine 0.6 mg DAILY GT 12/21/24 10:00 12/21/24 09:09 0.6 MG Ibuprofen 800 mg Q8HR GT 12/20/24 22:00 12/20/24 23:12 800 MG Pantoprazole Sodium 40 mg DAILY IV 12/21/24 10:00 12/21/24 09:09 40 MG Patient Own Medication 150 ml QID PEG 12/20/24 20:00 Purified Water 120 ml QID PEG 12/20/24 20:00 Examination: LUNGS:Abnormal (Tracheostomy tube in place), CVS:Normal (Sinus rhythm with ST elevation on monitor), NEURO:Abnormal laboratory and microbiology Laboratory Tests 12/21/24 06:10 12/21/24 05:12 Test 12/21/24 05:12 Range/Units Serum Glucose 94 74-106 mg/dL Problem List/Assessment/Plan Problem List/Assessment/Plan Acute pericarditis Possible sepsis with mild degree of shock Likely hypothermia induced bradycardia, resolved Cerebral palsy with PEG tube/tracheostomy/bed-bound status Hypokalemia/hypomagnesemia Plan/Recommendation (Dr. Daugherty) Transthoracic echocardiogram revealed LVEF of 65%. Continue pericarditis treatment including colchicine 0.6 mg GT QD x 3 mos, ibuprofen 600 mg GT q8h for 1 week, and pantoprazole 40 mg QD. Replete electrolytes as necessary. Septic workup per primary care team if deemed necessary. There is no further cardiac work-up indicated at this time. Kindly call if in need to re-consult. Thank you for allowing us to participate in this patient's care. Please call if you have any questions or concerns. This medical document was created using an electronic medical record system with voice recognition software and computerized dictation system. Although this document has been carefully reviewed, there might still be some phonetic and typographical errors. Occasional wrong-word or ``sound-alike substitutions may have occurred due to the inherent limitations of voice recognition software. These areas are purely typographical due to imperfections of the software programs and do not reflect any compromise in the patient's medical care. Please read the chart carefully and recognize, using context, where these substitutions have occurred. Plan discussed with: Other (Father) Dietary Evaluation Review Comments: Nutrition Recommendation 1) TF [place] 5.5oz x 6 OR per day providing 975 kcal (98% energy needs) & 48gm protein (100% protein needs) 2) Water flush 40ml if allowed 3) MVI w/ minerals 1 tab daily 4) Consider TPN if pt cannot tolerate TF Expected Outcomes/Goals: intake to meet at least 75% estimated needs FU 2-3 days Date of Service: Dec 21, 2024 Billing Provider: GINO ANGELO Cardiology Common Codes: [id number] INP/OBS CARE(Mod) GINO ANGELO Dec 21, 2024 11:18
[2024-12-21] MEDS ORDERED: ENOXAPARIN SOD 40 MG/0.4 ML SYRINGE SC SCH (12:39)
--- NOTE | 2024-12-21 13:47 | DVHPNRES ---
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 According to the patient's father at bedside, patient had gone for her physical therapy session where she was noted to have a blood pressure of 84/49 with a heart rate in the 50s which is what prompted this visit to the hospital. Per patient's father, patient will often have similar symptoms where her heart rate will go down to as low as 36 while she is sleeping, they know this because her alarm will beep when HR < 36; denies any symptoms of dizziness, nausea, weakness at the time of low blood pressure and heart rate. Review of systems could not be adequately completed as patient is nonverbal. However, per patient's father, 1 week ago patient did have 1 episode of diarrhea only. Past surgical history: Right hip surgery, back surgery for scoliosis, abdominal surgery Past Hospitalization: Denies any hospitalization in the past 6 months Social & Personal history: Smoking: Denies Drugs: Denies Alcohol: Denies Patient lives with father Allergies: Denies Objective vital signs Vital Sign Date Time Temp Pulse Resp B/P (MAP) Pulse Ox O2 Delivery O2 Flow Rate FiO2 12/21/24 13:00 94.6 66 7 98/60 (73) 96 202.3 12/21/24 12:00 Room Air* 0 N/A Trach Collar Total Intake and Output 12/20/24 12/20/24 12/21/24 15:00 23:00 07:00 Intake Total 0 ml 400 ml Output Total 1 ml Balance 0 ml 399 ml medications Current Medications Medications Dose Ordered Sig/Reggie Route Start Time Stop Time Status Last Admin Dose Admin Metronidazole 100 ml @ 100 mls/hr Q8HR IV 12/20/24 22:00 12/21/24 06:20 100 MLS/HR Loratadine 10 mg DAILY PEG 12/21/24 10:00 Phenylephrine HCl 1 spr BID NA 12/20/24 22:00 Topiramate 100 mg BID PEG 12/20/24 22:00 12/21/24 09:09 100 MG Patient Own Medication 5 ml DAILY GT 12/21/24 10:00 UNV Al Hydrox/Mg Hydrox/Simethicone 5 ml DAILY GT 12/21/24 10:00 12/21/24 09:10 5 ML Phenobarbital 36 mg BID GT 12/20/24 22:00 12/21/24 09:10 36 MG Colchicine 0.6 mg DAILY GT 12/21/24 10:00 12/21/24 09:09 0.6 MG Ibuprofen 800 mg Q8HR GT 12/20/24 22:00 12/20/24 23:12 800 MG Pantoprazole Sodium 40 mg DAILY IV 12/21/24 10:00 12/21/24 09:09 40 MG Patient Own Medication 150 ml QID PEG 12/20/24 20:00 12/21/24 12:33 150 ML Purified Water 120 ml QID PEG 12/20/24 20:00 12/21/24 12:33 120 ML Enoxaparin Sodium 40 mg DAILY SC 12/22/24 10:00 Examination General Appearance: Resting. Trach in place. Moist mucous membranes. Equal and reactive pupils. Head Exam: Normal inspection Neck Exam: Normal inspection. Non-tender. Normal alignment Pulmonary/Respiratory: Chest non-tender. Clear bilateral breath sounds, no crackles, no wheezing. Cardiovascular/Chest: Regular rate and rhythm. No murmurs. No JVD. Peripheral Pulses: 2+ Radial (R). 2+ Radial (L). 2+ Pedal (R). 2+ Pedal (L) Abdominal Exam: Normal bowel sounds. Soft. normal abdomen, no visible veins, Nontender. No hepatospenomegaly. PEG tube left middle abdomen, baclofen pump right lower quadrant. Ankle Exam: Negative ankle edema Lower extremities: Negative lower extremity edema Skin Exam: Old healed wounds noted on bilateral heels. Skin tear noted on right buttock laboratory and microbiology Laboratory Tests 12/21/24 11:35 12/21/24 06:10 12/21/24 05:12 Test 12/21/24 05:12 Range/Units Serum Glucose 94 74-106 mg/dL Microbiology Date/Time Source Procedure Growth Status 12/20/24 18:55 Sputum Gram Stain - Final Resulted 12/20/24 18:55 Sputum Respiratory Culture - Preliminary Resulted 12/20/24 18:53 Nose MRSA Screen - Final Complete 12/20/24 12:02 Voided Urine Urine Culture - Preliminary Resulted 12/20/24 11:15 Blood Blood Culture - Preliminary NO GROWTH AFTER 24 HOURS OF INCUBATION. Resulted Labs and/or images reviewed: Labs reviewed by me, Image(s) reviewed by me Problem List/Assessment/Plan Problem List/Assessment/Plan Neurology # cerebral palsy, spastic type # history of seizures # Hypothermia on arrival 89.4 likely d/t sepsis? - home medication phenobarbital - phenobarbital levels ordered - baclofen pump - monitor Cardiovascular # questionable acute pericarditis # Bradycardia possibly secondary to Hypothermia - initial EKG showed widespread ST segment elevations - EKG today 12/21/24 improved from yesterday, minimal to none ST elevations, no [place] depression - discontinued colchicine and ibuprofen Respiratory # Acute on chronic respiratory failure, hypercapnic # s/p trach 7 years ago, uncapped # repeated episodes of hypopnea - trach care - CXR: Central interstitial prominence - ABG showed hypercapnia pCO2 52, pH 7.21 - respiratory culture - monitor Ventilator: AC/VC TV 300 RR 16-18 PEEP 5cm H20 FiO2 30 GI # C diff colitis # s/p peg tube left middle abdomen - p.o. vancomycin 125 mg q.i.d. - Florastor - IV metronidazole 500 mg Q 8 hours # Peptic ulcer prophylaxis -Pantoprazole 40 mg IV daily # incontinent at baseline, patient's father refusing Lopez - monitor Nephrology # hyperkalemia, improving # hypomagnesemia, improving # hypocalcemia, asymptomatic - [facility] - monitor Infectious disease # C diff positive # sepsis possibly due to above - IV NS 600 mL bolus - IV NS at 60 cc/hour - p.o. vancomycin 125 mg q.i.d. -IV metronidazole 500 mg Q 8 hours - Florastor daily Hem/onc # leukopenia # thrombocytopenia - monitor DVT prophylaxis - holding due to thrombocytopenia Nutrition - patient's home nutrition [employer] nutritional supplement via PEG tube Lines 20 gauge to left arm placed on 12/20/2024 Critical care time 83 minutes excluding procedures and discussion with family Code status discussed greater than 20 minutes: Full CODE STATUS. Father, Mr. Wang at bedside was explained details about plan of care, all questions were answered and concerns were addressed. Plan discussed with Dr. Flores Plan discussed with: Other (Patient's father, RN) My Orders My Orders Orders - SANDIP GODOY RESIDENT Procedure Category Date Status Time Electrocardigram EKG 12/21/24 Logged 11:14 Enoxaparin Sodium PHA 12/22/24 In Process (Lovenox) 10:00 * Wound Consult CONS 12/21/24 Transmitted Dietary Evaluation Review Comments: Nutrition Recommendation 1) TF [employer] 5.5oz x 6 OR per day providing 975 kcal (98% energy needs) & 48gm protein (100% protein needs) 2) Water flush 40ml if allowed 3) MVI w/ minerals 1 tab daily 4) Consider TPN if pt cannot tolerate TF Expected Outcomes/Goals: intake to meet at least 75% estimated needs FU 2-3 days Date of Service: Dec 21, 2024 Billing Provider: NATHANAEL FLORES MD Common Visit Codes: 58791-[id number] CARE 30-74 MIN, 99530-[id number] CARE-EACH +30MIN SANDIP GODOY Dec 21, 2024 13:47 NATHANAEL FLORES MD Dec 22, 2024 12:06
[2024-12-21] MEDS ORDERED: PIPERACILLIN-TAZOB 3.375GM 100 ML IV SCH (14:00)
[2024-12-21] MEDS ORDERED: VANCOMYCIN PER PHARMACY 0 MG IV SCH (14:45)
[2024-12-21] MEDS: VANCOMYCIN HCL 125 MG CAP PO SCH (16:10)
[2024-12-21] MEDS: SODIUM CHLORIDE 0.9% 1,000 ML IV SCH ×2 (16:11→17:52)
[2024-12-21 16:46] LABS: Base Excess -7.3 mmol/L (-2.0-3.0)
[2024-12-21 18:55] LABS: Base Excess -5.8 mmol/L (-2.0-3.0)
[2024-12-21] MEDS: SODIUM CHLORIDE 0.9% 250 ML IV ONE (21:45)
--- NOTE | 2024-12-21 22:31 | DVHPN2 ---
Consult Progress Note Subjective Other Systems: Patient was seen and evaluated in follow up in the ICU. No overnight cardiac events reported. Trachestomy tube in place. Patient's HR and BP are fluctuating. K 5.2, CA 8.3, AST 73, ALT 45. Objective vital signs Vital Sign Date Time Temp Pulse Resp B/P (MAP) Pulse Ox O2 Delivery O2 Flow Rate FiO2 12/21/24 13:00 94.6 66 7 98/60 (73) 96 202.3 12/21/24 12:00 Room Air* 0 N/A Trach Collar Total Intake and Output 12/20/24 12/20/24 12/21/24 15:00 23:00 07:00 Intake Total 0 ml 400 ml Output Total 1 ml Balance 0 ml 399 ml medications Current Medications Medications Dose Ordered Sig/Reggie Route Start Time Stop Time Status Last Admin Dose Admin Loratadine 10 mg DAILY PEG 12/21/24 10:00 Phenylephrine HCl 1 spr BID NA 12/20/24 22:00 Topiramate 100 mg BID PEG 12/20/24 22:00 12/21/24 09:09 100 MG Patient Own Medication 5 ml DAILY GT 12/21/24 10:00 UNV Al Hydrox/Mg Hydrox/Simethicone 5 ml DAILY GT 12/21/24 10:00 12/21/24 09:10 5 ML Phenobarbital 36 mg BID GT 12/20/24 22:00 12/21/24 09:10 36 MG Pantoprazole Sodium 40 mg DAILY IV 12/21/24 10:00 12/21/24 09:09 40 MG Patient Own Medication 150 ml QID PEG 12/20/24 20:00 12/21/24 12:33 150 ML Purified Water 120 ml QID PEG 12/20/24 20:00 12/21/24 12:33 120 ML Vancomycin HCl 125 mg QID PO 12/21/24 14:45 UNV Saccharomyces Boulardii 250 mg DAILY PO 12/22/24 10:00 UNV Vancomycin HCl 0 ml @ 0 mls/hr UD IV 12/21/24 14:45 UNV Sodium Chloride 1,000 ml @ 75 mls/hr [id number] IV 12/21/24 14:45 UNV Examination: GENERAL:Normal, HEENT:Normal, NECK:Normal, LUNGS:Abnormal (Tracheostomy tube in place), CVS:Normal, ABDOMEN:Normal, SKIN:Normal, NEURO:Abnormal laboratory and microbiology Laboratory Tests 12/21/24 11:35 12/21/24 06:10 12/21/24 05:12 Test 12/21/24 05:12 Range/Units Serum Glucose 94 74-106 mg/dL Problem List/Assessment/Plan Problem List/Assessment/Plan Problem List/Assessment/Plan Acute pericarditis. Possible sepsis with mild degree of shock. Likely hypothermia induced bradycardia, resolved. Cerebral palsy with PEG tube/tracheostomy/bed-bound status. Hypokalemia/hypomagnesemia. Plan/Recommendation Continued all current supportive medical care. Patient has been seen by Myriam Bellamy NP on my behalf, her and I discussed the plan with the patient. Transthoracic echocardiogram revealed LVEF of 65%. Continue pericarditis treatment including colchicine 0.6 mg GT QD x 3 mos, ibuprofen 600 mg GT q8h for 1 week, and pantoprazole 40 mg QD. Replete electrolytes as necessary. Septic workup per primary care team if deemed necessary. There is no further cardiac work-up indicated at this time. Additional plan as per the hospital course. Plan discussed with: Other (Father) Dietary Evaluation Review Comments: Nutrition Recommendation 1) TF [employer] 5.5oz x 6 OR per day providing 975 kcal (98% energy needs) & 48gm protein (100% protein needs) 2) Water flush 40ml if allowed 3) MVI w/ minerals 1 tab daily 4) Consider TPN if pt cannot tolerate TF Expected Outcomes/Goals: intake to meet at least 75% estimated needs FU 2-3 days Date of Service: Dec 21, 2024 Billing Provider: LINDY CÁRDENAS MD Cardiology Common Codes: [id number] INP/OBS CARE(Mod) LINDY CÁRDENAS MD Dec 21, 2024 15:24
[2024-12-22] VITALS (82 sets, daily range): BP systolic 81–139; BP diastolic 34–81; PULSE 41–108; RESP 11–21; TEMP 94.6–97.9; O2SAT 97–100
[2024-12-22 04:00] LABS: Potassium 3.9 mmol/L (3.5-5.1); Sodium 140 mmol/L (136-145)
[2024-12-22 04:01] LABS: Anion Gap 10 (5-15); Hematocrit 39.0 % (36.0-46.0); Hemoglobin 12.8 g/dL (12.2-16.2); Mean Corpuscular Hemoglobin 30.9 pg (28.0-32.0); Mean Corpuscular Volume 94.3 fL (80.0-100.0); Nucleated Red Blood Cells % 0.3 %
[2024-12-22 04:07] LABS: BUN/Creatinine Ratio 24.2 (10.0-20.0); Blood Urea Nitrogen 15 mg/dL (9-23); Glucose 82 mg/dL (74-106)
[2024-12-22 04:25] LABS: Calcium 8.1 mg/dL (8.7-10.4); Carbon Dioxide 17 mmol/L (20-31); Chloride 113 mmol/L (98-107)
--- NOTE | 2024-12-22 05:32 | DVH ---
CHEST RADIOGRAPH Indication: PATIENT TRACHED Technique: Single frontal view of the chest was obtained COMPARISON: XY CHEST PORTABLE on DOS: 12/20/24 FINDINGS: Lines and Tubes: Tracheostomy in satisfactory position Lungs: Multifocal airspace disease Pleura: No effusion. No pneumothorax. Cardiomediastinal contours: Unremarkable Bones: Thoracolumbar spinal fixation hardware. IMPRESSION: No significant interval change
[2024-12-22 07:40] LABS: Alanine Aminotransferase 37 U/L (7-40); Albumin 3.3 g/dL (3.2-4.8)
[2024-12-22 07:51] LABS: Alkaline Phosphatase 144 U/L (46-116); Bilirubin, Direct < 0.1 mg/dL (<0.3); Bilirubin, Total < 0.2 mg/dL (0.2-1.0); Magnesium 2.7 mg/dL (1.6-2.6); Total Protein 5.6 g/dL (5.7-8.2)
--- NOTE | 2024-12-22 07:55 | ECG ---
[facility] Test Date: 2024-12-21 Test Time: 11:26:14 Pat Name: PHOENIX BAUM Department: ICU Room: [address] [place] [address] A Gender: F Outreach Educator: : 2000 Requested By: GINO ANGELO Order Number: [id number] Reading MD: Randal Toscano Measurements Intervals [place] Rate: 77 P: 7 [place]: 178 QRS: 37 QRSD: 77 T: 40 QT: 387 QTc: 438 Interpretive Statements Sinus arrhythmia Low voltage, extremity leads Electronically Signed On 12-23-2024 9:34:14 PDT by Randal Toscano Please click the below link to view image of tracing.
[2024-12-22 09:19] LABS: Base Excess -7.7 mmol/L (-2.0-3.0)
[2024-12-22] MEDS: FLORASTOR (S. BOULARDII) 250 MG CAP PO SCH (09:31)
[2024-12-22] MEDS ORDERED: ENOXAPARIN SOD 40 MG/0.4 ML SYRINGE SC SCH (10:00)
--- NOTE | 2024-12-22 17:04 | DVHPNRES ---
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 According to the patient's father at bedside, patient had gone for her physical therapy session where she was noted to have a blood pressure of 84/49 with a heart rate in the 50s which is what prompted this visit to the hospital. Per patient's father, patient will often have similar symptoms where her heart rate will go down to as low as 36 while she is sleeping, they know this because her alarm will beep when HR < 36; denies any symptoms of dizziness, nausea, weakness at the time of low blood pressure and heart rate. Review of systems could not be adequately completed as patient is nonverbal. However, per patient's father, 1 week ago patient did have 1 episode of diarrhea only. Past surgical history: Right hip surgery, back surgery for scoliosis, abdominal surgery Past Hospitalization: Denies any hospitalization in the past 6 months Social & Personal history: Smoking: Denies Drugs: Denies Alcohol: Denies Patient lives with father Allergies: Denies 12/22/2024: Patient more alert and reactive, looks better than yesterday. Continues to have watery bowel movement overnight. Decreased respiratory rate to 12. Objective vital signs Vital Sign Date Time Temp Pulse Resp B/P (MAP) Pulse Ox O2 Delivery O2 Flow Rate FiO2 12/22/24 16:00 49 12 90/44 (59) 100 30 12/22/24 16:00 97.2 207.0 12/22/24 16:00 Mechanical Ventilator+ 12/21/24 16:00 0 Total Intake and Output 12/21/24 12/21/24 12/22/24 15:00 23:00 07:00 Intake Total 400 ml 1345 ml 1220 ml Balance 400 ml 1345 ml 1220 ml medications Current Medications Medications Dose Ordered Sig/Reggie Route Start Time Stop Time Status Last Admin Dose Admin Loratadine 10 mg DAILY PEG 12/21/24 10:00 12/22/24 09:30 10 MG Phenylephrine HCl 1 spr BID NA 12/20/24 22:00 12/22/24 09:31 1 SPR Topiramate 100 mg BID PEG 12/20/24 22:00 12/22/24 09:30 100 MG Patient Own Medication 5 ml DAILY GT 12/21/24 10:00 UNV Al Hydrox/Mg Hydrox/Simethicone 5 ml DAILY GT 12/21/24 10:00 12/22/24 09:29 5 ML Phenobarbital 36 mg BID GT 12/20/24 22:00 12/22/24 09:29 36 MG Pantoprazole Sodium 40 mg DAILY IV 12/21/24 10:00 12/22/24 09:29 40 MG Patient Own Medication 150 ml QID PEG 12/20/24 20:00 12/22/24 12:31 150 ML Purified Water 120 ml QID PEG 12/20/24 20:00 12/22/24 12:31 120 ML Vancomycin HCl 125 mg QID PO 12/21/24 14:45 12/22/24 12:29 125 MG Saccharomyces Boulardii 250 mg DAILY PO 12/22/24 10:00 12/22/24 09:31 250 MG Metronidazole 100 ml @ 100 mls/hr Q8HR IV 12/21/24 22:00 12/22/24 14:22 100 MLS/HR Examination General Appearance: Resting. Trach in place. Moist mucous membranes. Equal and reactive pupils. Head Exam: Normal inspection Neck Exam: Normal inspection. Non-tender. Normal alignment Pulmonary/Respiratory: Chest non-tender. Clear bilateral breath sounds, no crackles, no wheezing. Cardiovascular/Chest: Regular rate and rhythm. No murmurs. No JVD. Peripheral Pulses: 2+ Radial (R). 2+ Radial (L). 2+ Pedal (R). 2+ Pedal (L) Abdominal Exam: Normal bowel sounds. Soft. normal abdomen, no visible veins, Nontender. No hepatospenomegaly. PEG tube left middle abdomen, baclofen pump right lower quadrant. Ankle Exam: Negative ankle edema Lower extremities: Negative lower extremity edema Skin Exam: Old healed wounds noted on bilateral heels. Skin tear noted on right buttock laboratory and microbiology Laboratory Tests 12/22/24 03:17 Test 12/22/24 03:17 Range/Units Serum Glucose 82 74-106 mg/dL Microbiology Date/Time Source Procedure Growth Status 12/21/24 00:40 Stool Stool Culture - Preliminary Resulted 12/21/24 00:40 Stool Shiga Toxin I & II - Final Resulted 12/21/24 00:40 Stool Clostridium difficile Toxin Assay - Final Resulted 12/20/24 18:55 Sputum Gram Stain - Final Resulted 12/20/24 18:55 Respiratory Culture - Preliminary Pseudomonas aeruginosa Resulted 12/20/24 18:53 Nose MRSA Screen - Final Complete 12/20/24 12:02 Voided Urine Urine Culture - Final Complete 12/20/24 11:15 Blood Blood Culture - Preliminary NO GROWTH AFTER 48 HOURS OF INCUBATION. Resulted Labs and/or images reviewed: Labs reviewed by me, Image(s) reviewed by me Problem List/Assessment/Plan Problem List/Assessment/Plan Neurology # cerebral palsy, spastic type # history of seizures # Hypothermia on arrival 89.4 likely d/t sepsis? - home medication phenobarbital - phenobarbital levels ordered - baclofen pump - monitor Cardiovascular # questionable acute pericarditis # Bradycardia possibly secondary to Hypothermia - initial EKG showed widespread ST segment elevations - EKG today 12/21/24 improved from yesterday, minimal to none ST elevations, no [place] depression - discontinued colchicine and ibuprofen Respiratory # Acute on chronic respiratory failure, hypercapnic # s/p trach 7 years ago, uncapped # repeated episodes of hypopnea - trach care - CXR: Central interstitial prominence - ABG showed hypercapnia pCO2 52, pH 7.21 - respiratory culture - monitor Ventilator: AC/VC TV 300 RR 12 PEEP 5cm H20 FiO2 30 GI # C diff colitis # s/p peg tube left middle abdomen - p.o. vancomycin 125 mg q.i.d. - Florastor - IV metronidazole 500 mg Q 8 hours # Peptic ulcer prophylaxis -Pantoprazole 40 mg IV daily # incontinent at baseline, patient's father refusing Lopez - monitor Nephrology # hyperkalemia, improving # hypomagnesemia, improving # hypocalcemia, asymptomatic - [facility] once - monitor Infectious disease # C diff positive # sepsis possibly due to above - IV NS 600 mL bolus - IV NS at 60 cc/hour - p.o. vancomycin 125 mg q.i.d. -IV metronidazole 500 mg Q 8 hours - Florastor daily Hem/onc # leukopenia # thrombocytopenia - monitor DVT prophylaxis - holding due to thrombocytopenia Nutrition - patient's home nutrition [employer] nutritional supplement via PEG tube Lines 20 gauge to left arm placed on 12/20/2024 Critical care time 83 minutes excluding procedures and discussion with family Code status discussed greater than 20 minutes: Full CODE STATUS. Father, Mr. Wang at bedside was explained details about plan of care, all questions were answered and concerns were addressed. Plan discussed with Dr. Flores Plan discussed with: Other (Patient's father, RN) My Orders My Orders Orders - SANDIP GODOY RESIDENT Procedure Category Date Status Time Abg W/ Co-Ox RT 12/22/24 Logged 04:00 Chest Portable XY 12/22/24 Resulted 04:00 Ventilator Orders RT 12/22/24 Transmitted 09:50 Ventilator Orders RT 12/22/24 Transmitted 11:58 Dietary Evaluation Review Comments: Nutrition Recommendation 1) TF [employer] 5.5oz x 6 OR per day providing 975 kcal (98% energy needs) & 48gm protein (100% protein needs) 2) Water flush 40ml if allowed 3) MVI w/ minerals 1 tab daily 4) Consider TPN if pt cannot tolerate TF Expected Outcomes/Goals: intake to meet at least 75% estimated needs FU 2-3 days Date of Service: Dec 22, 2024 Billing Provider: NATHANAEL FLORES MD Common Visit Codes: 10574-[id number] CARE 30-74 MIN, 98839-[id number] CARE-EACH +30MIN SANDIP GODOY Dec 22, 2024 17:04 NATHANAEL FLORES MD Dec 26, 2024 16:24
--- NOTE | 2024-12-22 22:12 | DVHPN2 ---
Progress Note - Dictate Date Seen: Dec 22, 2024 Medical Necessity Reason Pt with a Central, PICC or Fol: No Subjective Patient was seen and evaluated in follow-up in the ICU. Patient is intubated and sedated on ventilator. 30% FiO2. Patient having watery BMs. Chest x-ray shows multifocal airspace disease. CT chest is pending. vital signs Vital Sign Date Time Temp Pulse Resp B/P (MAP) Pulse Ox O2 Delivery O2 Flow Rate FiO2 12/22/24 20:19 54 12 82/40 (54) 100 30 12/22/24 20:15 95.4 203.7 12/22/24 20:00 Mechanical Ventilator+ 12/21/24 16:00 0 Total Intake and Output 12/21/24 12/21/24 12/22/24 15:00 23:00 07:00 Intake Total 400 ml 1345 ml 1220 ml Balance 400 ml 1345 ml 1220 ml medications Current Medications Medications Dose Ordered Sig/Reggie Route Start Time Stop Time Status Last Admin Dose Admin Loratadine 10 mg DAILY PEG 12/21/24 10:00 12/22/24 09:30 10 MG Phenylephrine HCl 1 spr BID NA 12/20/24 22:00 12/22/24 09:31 1 SPR Topiramate 100 mg BID PEG 12/20/24 22:00 12/22/24 09:30 100 MG Patient Own Medication 5 ml DAILY GT 12/21/24 10:00 UNV Al Hydrox/Mg Hydrox/Simethicone 5 ml DAILY GT 12/21/24 10:00 12/22/24 09:29 5 ML Phenobarbital 36 mg BID GT 12/20/24 22:00 12/22/24 09:29 36 MG Pantoprazole Sodium 40 mg DAILY IV 12/21/24 10:00 12/22/24 09:29 40 MG Patient Own Medication 150 ml QID PEG 12/20/24 20:00 12/22/24 17:27 150 ML Purified Water 120 ml QID PEG 12/20/24 20:00 12/22/24 17:27 120 ML Vancomycin HCl 125 mg QID PO 12/21/24 14:45 12/22/24 17:26 125 MG Saccharomyces Boulardii 250 mg DAILY PO 12/22/24 10:00 12/22/24 09:31 250 MG Metronidazole 100 ml @ 100 mls/hr Q8HR IV 12/21/24 22:00 12/22/24 14:22 100 MLS/HR objective GENERAL: Intubated on ventilator. EYES: PERRL, EOMI. Anicteric. HENT: Moist mucous membranes. LUNGS: Decreased breath sounds. CARDIOVASCULAR: Regular rate and rhythm. ABDOMEN: Soft, nontender and nondistended. EXTREMITIES: No edema. NEUROLOGIC: No focal neurological deficits. SKIN: Warm, dry. laboratory and microbiology Laboratory Tests 12/22/24 03:17 Test 12/22/24 03:17 Range/Units Serum Glucose 82 74-106 mg/dL Problem List Acute pericarditis. Possible sepsis with mild degree of shock. Likely hypothermia induced bradycardia, resolved. Cerebral palsy with PEG tube/tracheostomy/bed-bound status. Hypokalemia/hypomagnesemia. Assessment/Plan Continued all current supportive medical care. IV antibiotics as ordered. DVT and GI prophylactics. Additional plan as per the hospital course. Critical care time of 45 minutes provided to include time spent evaluation of patient at bedside, when appropriate patient/family education for diagnosis, treatment plan, review of pertinent medical information and discussion of care with specialty providers and PCP. Mechanical ventilator parameters, treatment and adjustments have personally been reviewed by me and treatment plan by alloy weigher has also been reviewed. Dietary Evaluation Review Comments: Nutrition Recommendation 1) TF [employer] 5.5oz x 6 OR per day providing 975 kcal (98% energy needs) & 48gm protein (100% protein needs) 2) Water flush 40ml if allowed 3) MVI w/ minerals 1 tab daily 4) Consider TPN if pt cannot tolerate TF Expected Outcomes/Goals: intake to meet at least 75% estimated needs FU 2-3 days Plan discussed with: LINDY Garza MD Dec 22, 2024 21:37
--- NOTE | 2024-12-22 22:13 | DVH ---
Procedure: CT CHEST WITHOUT CONTRAST Reason for study/Clinical History: increased secretions Comparison Study: None Exam Date: 12/22/2024 09:24 PM TECHNIQUE: Multidetector CT of the chest was performed from the lung apices to the upper abdomen with out the use of intravenous contract. Axial, coronal and sagittal multiplanar reformats were performed . Radiation Dose Information: CT Dose: CTDI volume is 6 mGy. Dose-length product is 230.5 mGy*cm The dose indicators for CT are the volume Computed Tomography (CT) Dose Index (CTDIvol) and the Dose Length Product (DLP), and are measured in units of mGy and mGy-cm, respectively. These indicators are not patient dose, but values generated from the CT scanner acquisition factors. The report includes radiation exposure data for exposures received during this examination. FINDINGS: Dependent bilateral lower lung streaky opacities with air program with surrounding ground glass. Smal l bilateral pleural effusions. Tracheostomy tube is noted. Portions of the lung and heart are limited assessment given streak artifact from extensive parallel jaki and trans pedicular screw fixation invo lving the entirety of the spine. Image portions of the abdomen demonstrate large rectal colonic stool burden. Remain near the abdomina l structures are limited in assessment due to streak artifact. Suture anchor noted within the right humeral head. Right lower abdominal generator and spine stimulator is noted. Small hiatal hernia with patulous esop hagus. IMPRESSION: 1. Dependent bilateral lower lung aspiration-pneumonia with small bilateral pleural effusions 2. Tracheostomy tube 3. Small hiatal hernia with patulous esophagus which can be seen with reflux 4. Limited examination secondary to streak artifact from extensive thoracolumbar fusion hardware Radiation optimization: All CT scans at this facility use at least one of these dose optimization clive hniques: automated exposure control mA and/or kV adjustment per patient size (includes targeted exam s where dose is matched to clinical indication) or iterative reconstruction.
[2024-12-23] VITALS (106 sets, daily range): BP systolic 86–136; BP diastolic 36–92; PULSE 42–107; RESP 9–34; TEMP 95.7–97.9; O2SAT 94–100
[2024-12-23] MEDS: cefTRIAXone 1GM/50ML D5W 50 ML IV ONE (01:47)
[2024-12-23 03:50] LABS: Anion Gap 9 (5-15); Potassium 3.8 mmol/L (3.5-5.1); Sodium 138 mmol/L (136-145)
[2024-12-23 03:56] LABS: BUN/Creatinine Ratio 27.4 (10.0-20.0); Blood Urea Nitrogen 17 mg/dL (9-23); Glucose 94 mg/dL (74-106)
[2024-12-23 04:07] LABS: Calcium 7.8 mg/dL (8.7-10.4); Carbon Dioxide 17 mmol/L (20-31); Chloride 112 mmol/L (98-107)
[2024-12-23 04:27] LABS: Hematocrit 37.1 % (36.0-46.0); Hemoglobin 11.9 g/dL (12.2-16.2); Mean Corpuscular Hemoglobin 30.4 pg (28.0-32.0); Mean Corpuscular Volume 95.2 fL (80.0-100.0); Nucleated Red Blood Cells % 0.1 %
--- NOTE | 2024-12-23 05:44 | DVH ---
CHEST RADIOGRAPH Indication: increasing secretions Technique: Single frontal view of the chest was obtained COMPARISON: XY CHEST PORTABLE on DOS: 12/22/24, XY CHEST PORTABLE on DOS: 12/20/24 FINDINGS: Lines and Tubes: Tracheostomy in satisfactory position Lungs: Congestion Pleura: No effusion. No pneumothorax. Cardiomediastinal contours: Unremarkable Bones: Thoracolumbar spinal fixation hardware IMPRESSION: No significant interval change
[2024-12-23 06:47] LABS: Base Excess -10.0 mmol/L (-2.0-3.0)
[2024-12-23] MEDS: CEFEPIME 1GM/ 50ML 50 ML IV ONE (10:34)
--- NOTE | 2024-12-23 13:38 | DVHPNRES ---
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 According to the patient's father at bedside, patient had gone for her physical therapy session where she was noted to have a blood pressure of 84/49 with a heart rate in the 50s which is what prompted this visit to the hospital. Per patient's father, patient will often have similar symptoms where her heart rate will go down to as low as 36 while she is sleeping, they know this because her alarm will beep when HR < 36; denies any symptoms of dizziness, nausea, weakness at the time of low blood pressure and heart rate. Review of systems could not be adequately completed as patient is nonverbal. However, per patient's father, 1 week ago patient did have 1 episode of diarrhea only. Past surgical history: Right hip surgery, back surgery for scoliosis, abdominal surgery Past Hospitalization: Denies any hospitalization in the past 6 months Social & Personal history: Smoking: Denies Drugs: Denies Alcohol: Denies Patient lives with father Allergies: Denies 12/22/2024: Patient more alert and reactive, looks better than yesterday. Continues to have watery bowel movement overnight. Decreased respiratory rate to 12. 12/23/2024: Respiratory cultures grew Pseudomonas and methicillin sensitive Staph aureus. Patient was started on cefepime and levofloxacin. Two bowel movements in the past 24 hours. Some blood-tinged secretions were noted while suctioning, however, they were likely from patient biting her own tongue. Objective vital signs Vital Sign Date Time Temp Pulse Resp B/P (MAP) Pulse Ox O2 Delivery O2 Flow Rate FiO2 12/23/24 13:18 91 13 123/80 (94) 100 30 12/23/24 12:00 Mechanical Ventilator+ 12/23/24 11:30 97.0 206.6 12/21/24 16:00 0 Total Intake and Output 12/22/24 12/22/24 12/23/24 15:00 23:00 07:00 Intake Total 240 ml 910 ml 800 ml Balance 240 ml 910 ml 800 ml medications Current Medications Medications Dose Ordered Sig/Reggie Route Start Time Stop Time Status Last Admin Dose Admin Loratadine 10 mg DAILY PEG 12/21/24 10:00 12/23/24 10:35 10 MG Phenylephrine HCl 1 spr BID NA 12/20/24 22:00 12/23/24 11:00 1 SPR Topiramate 100 mg BID PEG 12/20/24 22:00 12/23/24 10:35 100 MG Patient Own Medication 5 ml DAILY GT 12/21/24 10:00 UNV Al Hydrox/Mg Hydrox/Simethicone 5 ml DAILY GT 12/21/24 10:00 12/23/24 10:36 5 ML Phenobarbital 36 mg BID GT 12/20/24 22:00 12/23/24 10:49 36 MG Pantoprazole Sodium 40 mg DAILY IV 12/21/24 10:00 12/23/24 10:36 40 MG Patient Own Medication 150 ml QID PEG 12/20/24 20:00 12/23/24 12:20 150 ML Purified Water 120 ml QID PEG 12/20/24 20:00 12/23/24 12:20 120 ML Vancomycin HCl 125 mg QID PO 12/21/24 14:45 12/23/24 12:05 125 MG Saccharomyces Boulardii 250 mg DAILY PO 12/22/24 10:00 12/23/24 10:35 250 MG Metronidazole 100 ml @ 100 mls/hr Q8HR IV 12/21/24 22:00 12/23/24 05:13 100 MLS/HR Cefepime HCl 50 ml @ 12.5 mls/hr Q12H IV 12/23/24 20:00 Examination General Appearance: Resting. Trach in place. Moist mucous membranes. Equal and reactive pupils. Head Exam: Normal inspection Neck Exam: Normal inspection. Non-tender. Normal alignment Pulmonary/Respiratory: Chest non-tender. Clear bilateral breath sounds, no crackles, no wheezing. Cardiovascular/Chest: Regular rate and rhythm. No murmurs. No JVD. Peripheral Pulses: 2+ Radial (R). 2+ Radial (L). 2+ Pedal (R). 2+ Pedal (L) Abdominal Exam: Normal bowel sounds. Soft. normal abdomen, no visible veins, Nontender. No hepatospenomegaly. PEG tube left middle abdomen, baclofen pump right lower quadrant. Ankle Exam: Negative ankle edema Lower extremities: Negative lower extremity edema Skin Exam: Old healed wounds noted on bilateral heels. Skin tear noted on right buttock laboratory and microbiology Laboratory Tests 12/23/24 02:59 Test 12/23/24 02:59 Range/Units Serum Glucose 94 74-106 mg/dL Microbiology Date/Time Source Procedure Growth Status 12/21/24 00:40 Stool Stool Culture - Preliminary Resulted 12/21/24 00:40 Stool Shiga Toxin I & II - Final Resulted 12/21/24 00:40 Stool Clostridium difficile Toxin Assay - Final Resulted 12/20/24 18:55 Sputum Gram Stain - Final Complete 12/20/24 18:55 Respiratory Culture - Final Pseudomonas aeruginosa Staphylococcus aureus Complete 12/20/24 18:53 Nose MRSA Screen - Final Complete 12/20/24 12:02 Voided Urine Urine Culture - Final Complete 12/20/24 11:15 Blood Blood Culture - Preliminary NO GROWTH AFTER 72 HOURS OF INCUBATION. Resulted Labs and/or images reviewed: Labs reviewed by me, Image(s) reviewed by me Problem List/Assessment/Plan Problem List/Assessment/Plan Neurology # cerebral palsy, spastic type # history of seizures # Hypothermia on arrival 89.4 likely d/t sepsis? - home medication phenobarbital - phenobarbital levels ordered - baclofen pump - monitor Cardiovascular # questionable acute pericarditis # Bradycardia possibly secondary to Hypothermia - initial EKG showed widespread ST segment elevations - EKG today 12/21/24 improved from yesterday, minimal to none ST elevations, no AL depression - discontinued colchicine and ibuprofen Respiratory # Acute on chronic respiratory failure, hypercapnic # community-acquired pneumonia, respiratory culture positive for Pseudomonas and Staph aureus # small bilateral pleural effusions due to above # s/p trach 7 years ago, uncapped # repeated episodes of hypopnea - trach care - CXR: Central interstitial prominence - chest CT: Dependent bilateral lower lung aspiration, pneumonia with small bilateral pleural effusions - respiratory culture Staph aureus and Pseudomonas - started IV cefepime and p.o. levofloxacin Ventilator: AC/VC TV 250 RR 12 PEEP 5cm H20 FiO2 30 GI # C diff colitis # s/p peg tube left middle abdomen - p.o. vancomycin 125 mg q.i.d. - Florastor - IV metronidazole 500 mg Q 8 hours # Peptic ulcer prophylaxis -Pantoprazole 40 mg IV daily # incontinent at baseline, patient's father refusing Lopez - monitor Nephrology # hyperkalemia, improving # hypomagnesemia, improving # hypocalcemia, asymptomatic - Lokelma once - monitor Infectious disease # C diff positive # sepsis possibly due to above - IV NS 600 mL bolus - IV NS at 60 cc/hour - p.o. vancomycin 125 mg q.i.d. -IV metronidazole 500 mg Q 8 hours - Florastor daily Hem/onc # leukopenia # thrombocytopenia - monitor DVT prophylaxis - holding due to thrombocytopenia Nutrition - patient's home nutrition [employer] nutritional supplement via PEG tube Lines 20 gauge to left arm placed on 12/20/2024 Critical care time 83 minutes excluding procedures and discussion with family Code status discussed greater than 20 minutes: Full CODE STATUS. Father, Mr. Wang at bedside was explained details about plan of care, all questions were answered and concerns were addressed. Plan discussed with Dr. Reddy; we decided to add another Pseudomonas covering agent which also has activity against staph aureus, started patient on levofloxacin 750 mg once daily. Plan discussed with: Other (Patient's father, RN) My Orders My Orders Orders - SANDIP GODOY RESIDENT Procedure Category Date Status Time Ventilator Orders RT 12/22/24 Transmitted 11:[address] 12/22/24 Resulted 17:32 Chest Portable XY 12/23/24 Resulted 04:00 Abg W/ Co-Ox RT 12/23/24 Logged 04:00 Cefepime 1gm/ 50ml PHA 12/23/24 In Process (Maxipime 1gm/50ml) 20:00 Comprehensive LAB 12/24/24 Verified Metabolic Panel 04:00 Chest Portable XY 12/24/24 Logged 04:00 Abg W/ Co-Ox RT 12/24/24 Logged 04:00 Complete Blood Count LAB 12/24/24 Verified 04:00 Complete Blood Count LAB 12/25/24 Verified 04:00 Basic Metabolic Panel LAB 12/25/24 Verified 04:00 Chest Portable XY 12/25/24 Logged 04:00 Abg W/ Co-Ox RT 12/25/24 Logged 04:00 Dietary Evaluation Review Comments: Nutrition Recommendation 1) TF [employer] 5.5oz x 6 OR per day providing 975 kcal (98% energy needs) & 48gm protein (100% protein needs) 2) Water flush 40ml if allowed 3) MVI w/ minerals 1 tab daily 4) Consider TPN if pt cannot tolerate TF Expected Outcomes/Goals: intake to meet at least 75% estimated needs FU 2-3 days SANDIP GODOY RESIDENT Dec 23, 2024 13:38
[2024-12-23] MEDS: levoFLOXacin 250 MG TAB PO ONE (14:13)
--- NOTE | 2024-12-23 19:40 | DVHPN2 ---
Progress Note - Dictate Date Seen: Dec 23, 2024 Medical Necessity Reason Pt with a Central, PICC or Fol: No Subjective Patient was seen and evaluated in follow-up in the ICU. Patient is intubated and sedated on ventilator. 30% FiO2. Patient's father at bedside. CO2 17, CA 7.8. Chest x-ray remains unchanged. vital signs Vital Sign Date Time Temp Pulse Resp B/P (MAP) Pulse Ox O2 Delivery O2 Flow Rate FiO2 12/23/24 11:11 42 13 101/62 (75) 100 30 12/23/24 06:45 96.6 205.9 12/23/24 06:00 Mechanical Ventilator+ 12/21/24 16:00 0 Total Intake and Output 12/22/24 12/22/24 12/23/24 15:00 23:00 07:00 Intake Total 240 ml 910 ml 800 ml Balance 240 ml 910 ml 800 ml medications Current Medications Medications Dose Ordered Sig/Reggie Route Start Time Stop Time Status Last Admin Dose Admin Loratadine 10 mg DAILY PEG 12/21/24 10:00 12/23/24 10:35 10 MG Phenylephrine HCl 1 spr BID NA 12/20/24 22:00 12/23/24 11:00 1 SPR Topiramate 100 mg BID PEG 12/20/24 22:00 12/23/24 10:35 100 MG Patient Own Medication 5 ml DAILY GT 12/21/24 10:00 UNV Al Hydrox/Mg Hydrox/Simethicone 5 ml DAILY GT 12/21/24 10:00 12/23/24 10:36 5 ML Phenobarbital 36 mg BID GT 12/20/24 22:00 12/23/24 10:49 36 MG Pantoprazole Sodium 40 mg DAILY IV 12/21/24 10:00 12/23/24 10:36 40 MG Patient Own Medication 150 ml QID PEG 12/20/24 20:00 12/23/24 05:14 150 ML Purified Water 120 ml QID PEG 12/20/24 20:00 12/23/24 05:14 120 ML Vancomycin HCl 125 mg QID PO 12/21/24 14:45 12/23/24 05:14 125 MG Saccharomyces Boulardii 250 mg DAILY PO 12/22/24 10:00 12/23/24 10:35 250 MG Metronidazole 100 ml @ 100 mls/hr Q8HR IV 12/21/24 22:00 12/23/24 05:13 100 MLS/HR Cefepime HCl 50 ml @ 12.5 mls/hr Q12H IV 12/23/24 20:00 objective GENERAL: Intubated on ventilator. EYES: PERRL, EOMI. Anicteric. HENT: Moist mucous membranes. LUNGS: Decreased breath sounds. CARDIOVASCULAR: Regular rate and rhythm. ABDOMEN: Soft, nontender and nondistended. EXTREMITIES: No edema. NEUROLOGIC: No focal neurological deficits. SKIN: Warm, dry. laboratory and microbiology Laboratory Tests 12/23/24 02:59 Test 12/23/24 02:59 Range/Units Serum Glucose 94 74-106 mg/dL Problem List Acute pericarditis. Possible sepsis with mild degree of shock. Likely hypothermia induced bradycardia, resolved. Cerebral palsy with PEG tube/tracheostomy/bed-bound status. Hypokalemia/hypomagnesemia. Assessment/Plan Continued all current supportive medical care. IV antibiotics as ordered. GI prophylactics. Additional plan as per the hospital course. Critical care time of 45 minutes provided to include time spent evaluation of patient at bedside, when appropriate patient/family education for diagnosis, treatment plan, review of pertinent medical information and discussion of care with specialty providers and PCP. Mechanical ventilator parameters, treatment and adjustments have personally been reviewed by me and treatment plan by head irrigator has also been reviewed. Dietary Evaluation Review Comments: Nutrition Recommendation 1) TF [employer] 5.5oz x 6 OR per day providing 975 kcal (98% energy needs) & 48gm protein (100% protein needs) 2) Water flush 40ml if allowed 3) MVI w/ minerals 1 tab daily 4) Consider TPN if pt cannot tolerate TF Expected Outcomes/Goals: intake to meet at least 75% estimated needs FU 2-3 days Plan discussed with: LINDY Garza MD Dec 23, 2024 12:05
[2024-12-23] MEDS: CEFEPIME 1GM/ 50ML 50 ML IV SCH (19:53)
[2024-12-24] VITALS (105 sets, daily range): BP systolic 91–135; BP diastolic 40–94; PULSE 49–113; RESP 9–42; TEMP 93.9–98.2; O2SAT 89–100
--- NOTE | 2024-12-24 06:10 | DVH ---
CHEST RADIOGRAPH Indication: intubated Technique: Single frontal view of the chest was obtained Comparison: XY CHEST PORTABLE on DOS: 12/23/24, XY CHEST PORTABLE on DOS: 12/22/24, XY CHEST PORTABLE on DOS: 12/20/24, XY CHEST PORTABLE on DOS: 12/23/24 FINDINGS: Lines and Tubes: Tracheostomy in satisfactory position Lungs: Congestion Pleura: No effusion. No pneumothorax. Cardiomediastinal contours: Unremarkable Bones: Thoracolumbar spinal fixation hardware IMPRESSION: No significant interval change
[2024-12-24 07:55] LABS: Base Excess -6.6 mmol/L (-2.0-3.0)
[2024-12-24] MEDS: levoFLOXacin 250 MG TAB PO SCH (08:35)
[2024-12-24] MEDS ORDERED: cefTRIAXone 1GM/50ML D5W 50 ML IV SCH (09:00)
[2024-12-24 10:04] LABS: Hematocrit 40.6 % (36.0-46.0); Hemoglobin 13.4 g/dL (12.2-16.2); Mean Corpuscular Hemoglobin 31.0 pg (28.0-32.0); Mean Corpuscular Volume 93.8 fL (80.0-100.0); Nucleated Red Blood Cells % 0.1 %
[2024-12-24 10:18] LABS: Alanine Aminotransferase 31 U/L (7-40); Albumin 3.4 g/dL (3.2-4.8); Anion Gap 9 (5-15); BUN/Creatinine Ratio 23.2 (10.0-20.0); Blood Urea Nitrogen 16 mg/dL (9-23); Calcium 9.0 mg/dL (8.7-10.4); Glucose 82 mg/dL (74-106); Potassium 3.5 mmol/L (3.5-5.1); Sodium 139 mmol/L (136-145); Total Protein 6.1 g/dL (5.7-8.2)
[2024-12-24 11:30] LABS: Alkaline Phosphatase 144 U/L (46-116); Bilirubin, Total 0.2 mg/dL (0.2-1.0); Carbon Dioxide 20 mmol/L (20-31); Chloride 110 mmol/L (98-107)
--- NOTE | 2024-12-24 12:52 | DVHPN2 ---
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 According to the patient's father at bedside, patient had gone for her physical therapy session where she was noted to have a blood pressure of 84/49 with a heart rate in the 50s which is what prompted this visit to the hospital. Per patient's father, patient will often have similar symptoms where her heart rate will go down to as low as 36 while she is sleeping, they know this because her alarm will beep when HR < 36; denies any symptoms of dizziness, nausea, weakness at the time of low blood pressure and heart rate. Review of systems could not be adequately completed as patient is nonverbal. However, per patient's father, 1 week ago patient did have 1 episode of diarrhea only. Past surgical history: Right hip surgery, back surgery for scoliosis, abdominal surgery Past Hospitalization: Denies any hospitalization in the past 6 months Social & Personal history: Smoking: Denies Drugs: Denies Alcohol: Denies Patient lives with father Allergies: Denies 12/22/2024: Patient more alert and reactive, looks better than yesterday. Continues to have watery bowel movement overnight. Decreased respiratory rate to 12. 12/23/2024: Respiratory cultures grew Pseudomonas and methicillin sensitive Staph aureus. Patient was started on cefepime and levofloxacin. Two bowel movements in the past 24 hours. Some blood-tinged secretions were noted while suctioning, however, they were likely from patient biting her own tongue. 12/24/24- no blood in mouth. No concern for tongue biting. We will change levofloxacin to doxycycline 100 mg twice daily. Continue cefepime. Continue oral vancomycin. Continue IV metronidazole. Changing Levaquin to toxic due to risk of C diff. continue G-tube feeds. We will do trial of trach collar trial. No vasopressor. Map is stable between 67-75. Oxygen saturation well, heart rate normal 70s. On ventilation settings are a.c. 12/2 50/30%/5.0. Continue rest of treatment per primary team plan Reviewed: H&P Changes from previous H/P or p: No Changes General: Per HPI Eyes: No Pain, No Vision change, No Conjunctivae inflammation, No Eyelid inflammation, No Other, No Redness ENT: No Ear pain, No Ear discharge, No Nose pain, No Nose discharge, No Nose congestion, No Mouth pain, No Mouth swelling, No Throat pain, No Throat swelling, No Other Cardiovascular: No Chest Pain, No Palpitations, No Orthopnea, No Paroxysmal Noc. Dyspnea, No Edema, No Lt Headedness; Other (hypotension) Respiratory: No Cough, No Dry, No Shortness of breath, No SOB with excertion, No Wheezing, No Hemoptysis, No Pleuritic Pain, No Sputum, No Other Gastrointestinal: No Nausea, No Vomiting, No Abdominal Pain; Diarrhea; No Constipation, No Melena, No Hematochezia, No Other Genitourinary: No Dysuria, No Frequency, No Incontinence, No Hematuria, No Retention, No Other Musculoskeletal: No other, No neck pain, No shoulder pain, No arm pain, No back pain, No hand pain, No leg pain, No foot pain Skin: No Rash, No Lesions, No Jaundice, No Bruising, No Other Objective Vitals Vital Signs Date Time Temp Pulse Resp B/P (MAP) Pulse Ox O2 Delivery O2 Flow Rate FiO2 12/24/24 12:15 12 99 Mechanical Ventilator+ 30 30 12/24/24 12:15 66 12/24/24 11:31 110/69 (83) 12/24/24 11:00 96.4 205.5 Intake/Output Intake and Output 12/24/24 06:59 Intake Total 1230 ml Balance 1230 ml IV Total 150 ml Tube Feeding 540 ml Other 540 ml # Voids 6 # Bowel Movements 3 Exam General Appearance: Resting. Trach in place. Moist mucous membranes. Equal and reactive pupils. Head Exam: Normal inspection Neck Exam: Normal inspection. Non-tender. Normal alignment Pulmonary/Respiratory: Chest non-tender. Clear bilateral breath sounds, no crackles, no wheezing. Cardiovascular/Chest: Regular rate and rhythm. No murmurs. No JVD. Peripheral Pulses: 2+ Radial (R). 2+ Radial (L). 2+ Pedal (R). 2+ Pedal (L) Abdominal Exam: Normal bowel sounds. Soft. normal abdomen, no visible veins, Nontender. No hepatospenomegaly. PEG tube left middle abdomen, baclofen pump right lower quadrant. Ankle Exam: Negative ankle edema Lower extremities: Negative lower extremity edema Skin Exam: Old healed wounds noted on bilateral heels. Skin tear noted on right buttock Medications Current Medications Medications Dose Ordered Sig/Reggie Route Start Time Stop Time Status Last Admin Dose Admin Loratadine 10 mg DAILY PEG 12/21/24 10:00 12/24/24 08:35 10 MG Phenylephrine HCl 1 spr BID NA 12/20/24 22:00 12/24/24 09:32 1 SPR Topiramate 100 mg BID PEG 12/20/24 22:00 12/24/24 08:36 100 MG Patient Own Medication 5 ml DAILY GT 12/21/24 10:00 UNV Al Hydrox/Mg Hydrox/Simethicone 5 ml DAILY GT 12/21/24 10:00 12/24/24 08:35 5 ML Phenobarbital 36 mg BID GT 12/20/24 22:00 12/24/24 09:32 36 MG Pantoprazole Sodium 40 mg DAILY IV 12/21/24 10:00 12/24/24 08:35 40 MG Patient Own Medication 150 ml QID PEG 12/20/24 20:00 12/24/24 12:07 150 ML Purified Water 120 ml QID PEG 12/20/24 20:00 12/24/24 12:07 120 ML Vancomycin HCl 125 mg QID PO 12/21/24 14:45 12/24/24 12:07 125 MG Saccharomyces Boulardii 250 mg DAILY PO 12/22/24 10:00 12/24/24 08:36 250 MG Metronidazole 100 ml @ 100 mls/hr Q8HR IV 12/21/24 22:00 12/24/24 05:45 100 MLS/HR Cefepime HCl 50 ml @ 12.5 mls/hr Q12H IV 12/23/24 20:00 12/24/24 09:34 12.5 MLS/HR Levofloxacin 750 mg DAILY PO 12/24/24 10:00 12/24/24 08:35 750 MG Laboratory Results Laboratory Tests 12/24/24 09:38 12/24/24 09:48 Chemistry Test 12/24/24 09:48 Albumin 3.4 g/dL (3.2-4.8) Calcium Level 9.0 mg/dL (8.7-10.4) Total Protein 6.1 g/dL (5.7-8.2) LFT Test 12/24/24 09:48 Alanine Aminotransferase (ALT) 31 U/L (7-40) Alkaline Phosphatase 144 U/L (46-116) H Aspartate Amino Transferase (AST) 51 U/L (13-40) H Total Bilirubin 0.2 mg/dL (0.2-1.0) Urinalysis Test 12/20/24 12:03 Urine Color Yellow (Yellow) Urine Clarity Clear (Clear) Urine pH 6.5 (5.0-9.0) Urine Specific [place] 1.025 (1.001-1.035) Urine Protein Negative (Negative) Urine Ketones Negative (Negative) Urine Blood Negative /uL (Negative) Urine Nitrite Negative (Negative) Urine Bilirubin Negative (Negative) Urine Urobilinogen Normal mg/dL (Negative) Urine Leukocyte Esterase Negative /uL (Negative) Urine RBC 1 /hpf (0 - 4) Urine Microscopic WBC < 1 /HPF (0-5) Urine Squamous Epithelial Cells Few /hpf (<5) Urine Bacteria Few /hpf (None Seen) H Urine Mucus Few (None Seen) Urine Glucose Normal mg/dL (Normal) Blood Gas Results Test 12/23/24 19:10 12/24/24 07:44 FiO2 % 30.0 30.0 Arterial Blood pH 7.329 (7.350-7.450) Microbiology Microbiology Date/Time Source Procedure Growth Status 12/21/24 00:40 Stool Stool Culture - Final Complete 12/21/24 00:40 Stool Shiga Toxin I & II - Final Complete 12/21/24 00:40 Stool Clostridium difficile Toxin Assay - Final Complete 12/20/24 18:55 Sputum Gram Stain - Final Complete 12/20/24 18:55 Respiratory Culture - Final Pseudomonas aeruginosa Staphylococcus aureus Complete 12/20/24 18:53 Nose MRSA Screen - Final Complete 12/20/24 12:02 Voided Urine Urine Culture - Final Complete 12/20/24 11:15 Blood Blood Culture - Preliminary NO GROWTH AFTER 72 HOURS OF INCUBATION. Resulted Labs and/or images reviewed: Labs reviewed by me, Image(s) reviewed by me Assessment/Plan Assessment/Plan Neurology # cerebral palsy, spastic type # history of seizures # Hypothermia on arrival 89.4 likely d/t sepsis? - home medication phenobarbital - phenobarbital levels ordered - baclofen pump - monitor Cardiovascular # questionable acute pericarditis # Bradycardia possibly secondary to Hypothermia - initial EKG showed widespread ST segment elevations - EKG today 12/21/24 improved from yesterday, minimal to none ST elevations, no MO depression - discontinued colchicine and ibuprofen Respiratory # Acute on chronic respiratory failure, hypercapnic # community-acquired pneumonia, respiratory culture positive for Pseudomonas and Staph aureus # small bilateral pleural effusions due to above # s/p trach 7 years ago, uncapped # repeated episodes of hypopnea - [facility] - CXR: Central interstitial prominence - chest CT: Dependent bilateral lower lung aspiration, pneumonia with small bilateral pleural effusions - respiratory culture Staph aureus and Pseudomonas - started IV cefepime and p.o. levofloxacin - 12/24/2024 change antibiotics to cefepime/doxycycline (stop Levaquin) Ventilator: AC/VC TV 250 RR 12 PEEP 5cm H20 FiO2 30 GI # C diff colitis # s/p peg tube left middle abdomen - p.o. vancomycin 125 mg q.i.d. - Florastor - IV metronidazole 500 mg Q 8 hours # Peptic ulcer prophylaxis -Pantoprazole 40 mg IV daily # incontinent at baseline, patient's father refusing Lopez - monitor Nephrology # hyperkalemia, improving # hypomagnesemia, improving # hypocalcemia, asymptomatic - Lokelma once - monitor Infectious disease # C diff positive # sepsis possibly due to above - IV NS 600 mL bolus - IV NS at 60 cc/hour - p.o. vancomycin 125 mg q.i.d. -IV metronidazole 500 mg Q 8 hours - Florastor daily Hem/onc # leukopenia # thrombocytopenia - monitor DVT prophylaxis - holding due to thrombocytopenia Nutrition - patient's home nutrition KXEN nutritional supplement via PEG tube Lines 20 gauge to left arm placed on 12/20/2024 Critical care time 83 minutes excluding procedures and discussion with family Code status discussed greater than 20 minutes: Full CODE STATUS. Plan discussed with: Patient My Orders Orders - ABIGAIL ARROYO MD Procedure Category Date Status Time Trach Collar Trial RT 12/24/24 Transmitted 12:13 Date of Service: Dec 24, 2024 Billing Provider: ABIGAIL ARROYO MD Common Visit Codes: [id number] CARE 30-74 MIN ABIGAIL ARROYO MD Dec 24, 2024 12:52
[2024-12-24 16:15] LABS: Base Excess -5.3 mmol/L (-2.0-3.0)
--- NOTE | 2024-12-24 19:36 | DVHPN2 ---
Progress Note - Dictate Date Seen: Dec 24, 2024 Medical Necessity Reason Pt with a Central, PICC or Fol: No Subjective Patient was seen and evaluated in follow-up in the ICU. Patient is intubated and sedated on ventilator. 30% FiO2. CL 110, AST 51. Chest x-ray shows NAD. vital signs Vital Sign Date Time Temp Pulse Resp B/P (MAP) Pulse Ox O2 Delivery O2 Flow Rate FiO2 12/24/24 12:15 12 99 Mechanical Ventilator+ 30 30 12/24/24 12:15 66 12/24/24 11:31 110/69 (83) 12/24/24 11:00 96.4 205.5 Total Intake and Output 12/23/24 12/23/24 12/24/24 15:00 23:00 07:00 Intake Total 640 ml 690 ml Balance 640 ml 690 ml medications Current Medications Medications Dose Ordered Sig/Reggie Route Start Time Stop Time Status Last Admin Dose Admin Loratadine 10 mg DAILY PEG 12/21/24 10:00 12/24/24 08:35 10 MG Phenylephrine HCl 1 spr BID NA 12/20/24 22:00 12/24/24 09:32 1 SPR Topiramate 100 mg BID PEG 12/20/24 22:00 12/24/24 08:36 100 MG Patient Own Medication 5 ml DAILY GT 12/21/24 10:00 UNV Al Hydrox/Mg Hydrox/Simethicone 5 ml DAILY GT 12/21/24 10:00 12/24/24 08:35 5 ML Phenobarbital 36 mg BID GT 12/20/24 22:00 12/24/24 09:32 36 MG Pantoprazole Sodium 40 mg DAILY IV 12/21/24 10:00 12/24/24 08:35 40 MG Patient Own Medication 150 ml QID PEG 12/20/24 20:00 12/24/24 12:07 150 ML Purified Water 120 ml QID PEG 12/20/24 20:00 12/24/24 12:07 120 ML Vancomycin HCl 125 mg QID PO 12/21/24 14:45 12/24/24 12:07 125 MG Saccharomyces Boulardii 250 mg DAILY PO 12/22/24 10:00 12/24/24 08:36 250 MG Metronidazole 100 ml @ 100 mls/hr Q8HR IV 12/21/24 22:00 12/24/24 05:45 100 MLS/HR Cefepime HCl 50 ml @ 12.5 mls/hr Q12H IV 12/23/24 20:00 12/24/24 09:34 12.5 MLS/HR Levofloxacin 750 mg DAILY PO 12/24/24 10:00 12/24/24 08:35 750 MG objective GENERAL: Intubated on ventilator. EYES: PERRL, EOMI. Anicteric. HENT: Moist mucous membranes. LUNGS: Decreased breath sounds. CARDIOVASCULAR: Regular rate and rhythm. ABDOMEN: Soft, nontender and nondistended. EXTREMITIES: No edema. NEUROLOGIC: No focal neurological deficits. SKIN: Warm, dry. laboratory and microbiology Laboratory Tests 12/24/24 09:48 12/24/24 09:38 Test 12/24/24 09:48 Range/Units Serum Glucose 82 74-106 mg/dL Problem List Acute pericarditis. Possible sepsis with mild degree of shock. Likely hypothermia induced bradycardia, resolved. Cerebral palsy with PEG tube/tracheostomy/bed-bound status. Hypokalemia/hypomagnesemia. Assessment/Plan Continued all current supportive medical care. IV antibiotics as ordered. GI prophylactics. Additional plan as per the hospital course. Critical care time of 45 minutes provided to include time spent evaluation of patient at bedside, when appropriate patient/family education for diagnosis, treatment plan, review of pertinent medical information and discussion of care with specialty providers and PCP. Mechanical ventilator parameters, treatment and adjustments have personally been reviewed by me and treatment plan by dock loader has also been reviewed. Dietary Evaluation Review Comments: Nutrition Recommendation 1) TF [place] 5.5oz x 6 OR per day providing 975 kcal (98% energy needs) & 48gm protein (100% protein needs) 2) Water flush 40ml if allowed 3) MVI w/ minerals 1 tab daily 4) Consider TPN if pt cannot tolerate TF Expected Outcomes/Goals: intake to meet at least 75% estimated needs FU 2-3 days Plan discussed with: LINDY Garza MD Dec 24, 2024 12:26
[2024-12-24] MEDS: DOXYCYCLINE 100 MG TAB/CAP PO SCH (21:40)
[2024-12-24] MEDS: CEFEPIME 2GM/50ML NS 50 ML IV SCH (21:41)
[2024-12-24] MEDS: ALBUTEROL SULF 2.5 MG/0.5ML(0.5%) NEB SOLN NEB PRN (22:10)
[2024-12-24] MEDS: IPRATROPIUM BROM 0.5 MG/2.5ML INH SOL NEB PRN (22:11)
--- NOTE | 2024-12-24 22:42 | DVHPN2 ---
Progress Note - Dictate Date Seen: Dec 24, 2024 Medical Necessity Reason Pt with a Central, PICC or Fol: No Subjective Patient seen and examined at bedside. On mechanical ventilator via trach. Overnight events reviewed. vital signs Vital Sign Date Time Temp Pulse Resp B/P (MAP) Pulse Ox O2 Delivery O2 Flow Rate FiO2 12/24/24 20:00 91 12/24/24 20:00 20 95 Mechanical Ventilator+ 30 30 12/24/24 20:00 8 12/24/24 18:15 97.2 109/67 (81) 207.0 Total Intake and Output 12/23/24 12/23/24 12/24/24 15:00 23:00 07:00 Intake Total 640 ml 690 ml Balance 640 ml 690 ml medications Current Medications Medications Dose Ordered Sig/Reggie Route Start Time Stop Time Status Last Admin Dose Admin Loratadine 10 mg DAILY PEG 12/21/24 10:00 12/24/24 08:35 10 MG Phenylephrine HCl 1 spr BID NA 12/20/24 22:00 12/24/24 21:41 1 SPR Topiramate 100 mg BID PEG 12/20/24 22:00 12/24/24 21:40 100 MG Patient Own Medication 5 ml DAILY GT 12/21/24 10:00 UNV Al Hydrox/Mg Hydrox/Simethicone 5 ml DAILY GT 12/21/24 10:00 12/24/24 08:35 5 ML Phenobarbital 36 mg BID GT 12/20/24 22:00 12/24/24 21:40 36 MG Pantoprazole Sodium 40 mg DAILY IV 12/21/24 10:00 12/24/24 08:35 40 MG Patient Own Medication 150 ml QID PEG 12/20/24 20:00 12/24/24 22:00 150 ML Purified Water 120 ml QID PEG 12/20/24 20:00 12/24/24 21:41 120 ML Vancomycin HCl 125 mg QID PO 12/21/24 14:45 12/24/24 21:40 125 MG Saccharomyces Boulardii 250 mg DAILY PO 12/22/24 10:00 12/24/24 08:36 250 MG Metronidazole 100 ml @ 100 mls/hr Q8HR IV 12/21/24 22:00 12/24/24 21:41 100 MLS/HR Doxycycline Monohydrate 100 mg Q12HR PO 12/24/24 22:00 12/24/24 21:40 100 MG Cefepime HCl 50 ml @ 12.5 mls/hr Q12HR IV 12/24/24 22:00 12/24/24 21:41 12.5 MLS/HR Albuterol 2.5 mg Q4HPRN PRN NEB 12/24/24 20:15 12/24/24 22:10 2.5 MG Ipratropium [place] 0.5 mg Q4HPRN PRN NEB 12/24/24 20:15 12/24/24 22:11 0.5 MG objective Gen.: Patient lying in bed in medical ICU. On mechanical ventilator. S/p trach. Head: Normocephalic, atraumatic. Eyes: PERRLA. Ears: Normal external anatomy. Throat: Endotracheal tube and orogastric tube in place. Neck: Trach in place. Chest: Transmitted breath sounds bilaterally. Decreased air entry bilaterally. No wheezing. Bibasilar crackles. Cardiovascular: Positive S1, positive S2. Regular rate and rhythm. Abdomen: Positive bowel sounds in all 4 quadrants. Soft, nontender, nondistended. : Lopez in place. Normal external genitalia. Rectal: Deferred. Skin: Warm, dry. Intact. Extremities: 2+ radial pulses bilaterally. No lower extremity edema. Neuro: Sedated. laboratory and microbiology Laboratory Tests 12/24/24 09:48 12/24/24 09:38 Test 12/24/24 09:48 Range/Units Serum Glucose 82 74-106 mg/dL Assessment/Plan Impression: Acute on chronic hypoxic respiratory failure On mechanical ventilator S/p tracheostomy Cerebral palsy Hypotension, resolved. C. difficile infection. Plan: On mechanical ventilator via tracheostomy Mechanically ventilated with trach size 5.0 Bivona and ventilator settings AC 12, VT 250, PEEP 5.0, FiO2 30%. Titrate FIO2 to keep O2 saturation above 90%. Trach collar Trach care per RT Pulmonary toileting CXR reviewed, reveals pulmonary congestion. ABG reviewed, acidemia. Continue bronchodilators Continue antibiotics. F/u cultures. Pressors as necessary for hemodynamic support. Titrate to keep MAP greater than 65 mmHg. Protonix for GI ppx Monitor renal function Monitor electrolytes. Supplement as necessary. Monitor ins and outs. Maintain euvolemia. GI prophylaxis. DVT prophylaxis. Prognosis: Poor given patient's multiple co-morbidities. Condition: Critical Rest of plan per hospitalist and other consultants. A total of 35 minutes of critical care time was spent reviewing the patient record, examining the patient, making a diagnostic and therapeutic plan, discussing this plan with the medical personnel, following up on diagnostic studies and following the patient for clinical stability excluding any and all procedures. At least 50% of this time was spent in direct, [id number] contact. Thank you Dr. Ren for allowing me to participate in this patient's care. Further recommendations will depend on the patient's clinical course. Please do not hesitate to contact me if you have any questions or concerns. This medical document was created using an electronic medical record system with [employer] dictation system. Although these documentations are being carefully reviewed, there may still be some phonetic and typographical changes. The errors are purely typographical, due to imperfection on the software program, and do not reflect any compromise in the patient's medical care. Dietary Evaluation Review Comments: Nutrition Recommendation 1) TF [place] 5.5oz x 6 OR per day providing 975 kcal (98% energy needs) & 48gm protein (100% protein needs) 2) Water flush 40ml if allowed 3) MVI w/ minerals 1 tab daily 4) Consider TPN if pt cannot tolerate TF Expected Outcomes/Goals: intake to meet at least 75% estimated needs FU 2-3 days Plan discussed with: Other (JHON Jaramillo) Critical Care Time(min): 35 JESSICA RAI MD Dec 24, 2024 22:42
[2024-12-25] VITALS (77 sets, daily range): BP systolic 79–162; BP diastolic 36–109; PULSE 50–124; RESP 5–32; TEMP 95.9–98.2; O2SAT 92–100
[2024-12-25 04:12] LABS: Anion Gap 9 (5-15); Carbon Dioxide 21 mmol/L (20-31); Sodium 139 mmol/L (136-145)
[2024-12-25 04:17] LABS: Hematocrit 37.0 % (36.0-46.0); Hemoglobin 12.5 g/dL (12.2-16.2); Mean Corpuscular Hemoglobin 30.6 pg (28.0-32.0); Mean Corpuscular Volume 90.8 fL (80.0-100.0); Nucleated Red Blood Cells % 0.0 %
[2024-12-25 04:18] LABS: BUN/Creatinine Ratio 29.8 (10.0-20.0); Blood Urea Nitrogen 17 mg/dL (9-23); Glucose 97 mg/dL (74-106)
[2024-12-25 04:20] LABS: Calcium 8.0 mg/dL (8.7-10.4); Chloride 109 mmol/L (98-107); Potassium 3.1 mmol/L (3.5-5.1)
[2024-12-25] MEDS: POTASSIUM CHL 20MEQ/100ML 100 ML IV SCH (05:08)
--- NOTE | 2024-12-25 05:48 | DVH ---
CHEST RADIOGRAPH Indication: intubation Technique: Single frontal view of the chest was obtained Comparison: XY CHEST PORTABLE on DOS: 12/24/24, XY CHEST PORTABLE on DOS: 12/23/24, XY CHEST PORTABLE on DOS: 12/22/24, XY CHEST PORTABLE on DOS: 12/20/24, XY CHEST PORTABLE on DOS: 12/24/24 FINDINGS: Lines and Tubes: Tracheostomy in satisfactory position Lungs: Congestion Pleura: No effusion. No pneumothorax. Cardiomediastinal contours: Unremarkable Bones: Thoracolumbar spinal fixation hardware IMPRESSION: No significant interval change
[2024-12-25 07:53] LABS: Base Excess -5.3 mmol/L (-2.0-3.0)
--- NOTE | 2024-12-25 09:36 | DVHPN2 ---
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 According to the patient's father at bedside, patient had gone for her physical therapy session where she was noted to have a blood pressure of 84/49 with a heart rate in the 50s which is what prompted this visit to the hospital. Per patient's father, patient will often have similar symptoms where her heart rate will go down to as low as 36 while she is sleeping, they know this because her alarm will beep when HR < 36; denies any symptoms of dizziness, nausea, weakness at the time of low blood pressure and heart rate. Review of systems could not be adequately completed as patient is nonverbal. However, per patient's father, 1 week ago patient did have 1 episode of diarrhea only. Past surgical history: Right hip surgery, back surgery for scoliosis, abdominal surgery Past Hospitalization: Denies any hospitalization in the past 6 months Social & Personal history: Smoking: Denies Drugs: Denies Alcohol: Denies Patient lives with father Allergies: Denies 12/22/2024: Patient more alert and reactive, looks better than yesterday. Continues to have watery bowel movement overnight. Decreased respiratory rate to 12. 12/23/2024: Respiratory cultures grew Pseudomonas and methicillin sensitive Staph aureus. Patient was started on cefepime and levofloxacin. Two bowel movements in the past 24 hours. Some blood-tinged secretions were noted while suctioning, however, they were likely from patient biting her own tongue. 12/24/24- no blood in mouth. No concern for tongue biting. We will change levofloxacin to doxycycline 100 mg twice daily. Continue cefepime. Continue oral vancomycin. Continue IV metronidazole. Changing Levaquin to toxic due to risk of C diff. continue G-tube feeds. We will do trial of trach collar trial. No vasopressor. Map is stable between 67-75. Oxygen saturation well, heart rate normal 70s. On ventilation settings are a.c. 12/2 50/30%/5.0. Continue rest of treatment per primary team plan 12/25/2024-patient was tried on trach collar yesterday in his now off of the ventilator. Patient is now on 8 L with humidification through the trach collar. Vital signs stable. No vasopressors. Keeping in close watch and D OU due to patient's baseline poor mental status secondary to cerebral palsy. Goal is to wean off oxygen and continue antibiotics. Electrolytes were repleted, hypocalcemia lower limit of normal with correction albumin 8.4 Reviewed: H&P Changes from previous H/P or p: No Changes General: Per HPI Eyes: No Pain, No Vision change, No Conjunctivae inflammation, No Eyelid inflammation, No Other, No Redness ENT: No Ear pain, No Ear discharge, No Nose pain, No Nose discharge, No Nose congestion, No Mouth pain, No Mouth swelling, No Throat pain, No Throat swelling, No Other Cardiovascular: No Chest Pain, No Palpitations, No Orthopnea, No Paroxysmal Noc. Dyspnea, No Edema, No Lt Headedness; Other (hypotension) Respiratory: No Cough, No Dry, No Shortness of breath, No SOB with excertion, No Wheezing, No Hemoptysis, No Pleuritic Pain, No Sputum, No Other Gastrointestinal: No Nausea, No Vomiting, No Abdominal Pain; Diarrhea; No Constipation, No Melena, No Hematochezia, No Other Genitourinary: No Dysuria, No Frequency, No Incontinence, No Hematuria, No Retention, No Other Musculoskeletal: No other, No neck pain, No shoulder pain, No arm pain, No back pain, No hand pain, No leg pain, No foot pain Skin: No Rash, No Lesions, No Jaundice, No Bruising, No Other Objective Vitals Vital Signs Date Time Temp Pulse Resp B/P (MAP) Pulse Ox O2 Delivery O2 Flow Rate FiO2 12/25/24 08:30 96.6 103 131/85 (100) 99 205.9 12/25/24 08:15 20 12/25/24 07:30 Trach Collar 8 35 35 Intake/Output Intake and Output 12/25/24 07:00 Intake Total 1162.5 ml Balance 1162.5 ml Intake Oral 1050 ml IV Total 112.5 ml # Voids 8 # Bowel Movements 3 Exam General Appearance: Resting. Trach in place. Moist mucous membranes. Equal and reactive pupils. Head Exam: Normal inspection Neck Exam: Normal inspection. Non-tender. Normal alignment Pulmonary/Respiratory: Chest non-tender. Clear bilateral breath sounds, no crackles, no wheezing. Cardiovascular/Chest: Regular rate and rhythm. No murmurs. No JVD. Peripheral Pulses: 2+ Radial (R). 2+ Radial (L). 2+ Pedal (R). 2+ Pedal (L) Abdominal Exam: Normal bowel sounds. Soft. normal abdomen, no visible veins, Nontender. No hepatospenomegaly. PEG tube left middle abdomen, baclofen pump right lower quadrant. Ankle Exam: Negative ankle edema Lower extremities: Negative lower extremity edema Skin Exam: Old healed wounds noted on bilateral heels. Skin tear noted on right buttock Medications Current Medications Medications Dose Ordered Sig/Reggie Route Start Time Stop Time Status Last Admin Dose Admin Loratadine 10 mg DAILY PEG 12/21/24 10:00 12/25/24 09:17 10 MG Phenylephrine HCl 1 spr BID NA 12/20/24 22:00 12/25/24 09:18 1 SPR Topiramate 100 mg BID PEG 12/20/24 22:00 12/25/24 09:17 100 MG Patient Own Medication 5 ml DAILY GT 12/21/24 10:00 UNV Al Hydrox/Mg Hydrox/Simethicone 5 ml DAILY GT 12/21/24 10:00 12/25/24 09:16 5 ML Phenobarbital 36 mg BID GT 12/20/24 22:00 12/25/24 09:17 36 MG Pantoprazole Sodium 40 mg DAILY IV 12/21/24 10:00 12/25/24 09:17 40 MG Patient Own Medication 150 ml QID PEG 12/20/24 20:00 12/25/24 06:00 150 ML Purified Water 120 ml QID PEG 12/20/24 20:00 12/25/24 05:08 120 ML Vancomycin HCl 125 mg QID PO 12/21/24 14:45 12/25/24 05:08 125 MG Saccharomyces Boulardii 250 mg DAILY PO 12/22/24 10:00 12/25/24 09:17 250 MG Metronidazole 100 ml @ 100 mls/hr Q8HR IV 12/21/24 22:00 12/25/24 05:08 100 MLS/HR Doxycycline Monohydrate 100 mg Q12HR PO 12/24/24 22:00 12/25/24 09:18 100 MG Cefepime HCl 50 ml @ 12.5 mls/hr Q12HR IV 12/24/24 22:00 12/25/24 09:17 12.5 MLS/HR Albuterol 2.5 mg Q4HPRN PRN NEB 12/24/24 20:15 12/24/24 22:10 2.5 MG Ipratropium [place] 0.5 mg Q4HPRN PRN NEB 12/24/24 20:15 12/24/24 22:11 0.5 MG Laboratory Results Laboratory Tests 12/25/24 03:38 Chemistry Test 12/24/24 09:48 12/25/24 03:38 Albumin 3.4 g/dL (3.2-4.8) Calcium Level 9.0 mg/dL (8.7-10.4) 8.0 mg/dL (8.7-10.4) L Total Protein 6.1 g/dL (5.7-8.2) LFT Test 12/24/24 09:48 Alanine Aminotransferase (ALT) 31 U/L (7-40) Alkaline Phosphatase 144 U/L (46-116) H Aspartate Amino Transferase (AST) 51 U/L (13-40) H Total Bilirubin 0.2 mg/dL (0.2-1.0) Urinalysis Test 12/20/24 12:03 Urine Color Yellow (Yellow) Urine Clarity Clear (Clear) Urine pH 6.5 (5.0-9.0) Urine Specific [place] 1.025 (1.001-1.035) Urine Protein Negative (Negative) Urine Ketones Negative (Negative) Urine Blood Negative /uL (Negative) Urine Nitrite Negative (Negative) Urine Bilirubin Negative (Negative) Urine Urobilinogen Normal mg/dL (Negative) Urine Leukocyte Esterase Negative /uL (Negative) Urine RBC 1 /hpf (0 - 4) Urine Microscopic WBC < 1 /HPF (0-5) Urine Squamous Epithelial Cells Few /hpf (<5) Urine Bacteria Few /hpf (None Seen) H Urine Mucus Few (None Seen) Urine Glucose Normal mg/dL (Normal) Blood Gas Results Test 12/24/24 16:11 12/25/24 07:19 Arterial Blood pH 7.388 (7.350-7.450) 7.380 (7.350-7.450) FiO2 % 30.0 30.0 Microbiology Microbiology Date/Time Source Procedure Growth Status 12/21/24 00:40 Stool Stool Culture - Final Complete 12/21/24 00:40 Stool Shiga Toxin I & II - Final Complete 12/21/24 00:40 Stool Clostridium difficile Toxin Assay - Final Complete 12/20/24 18:55 Sputum Gram Stain - Final Complete 12/20/24 18:55 Respiratory Culture - Final Pseudomonas aeruginosa Staphylococcus aureus Complete 12/20/24 18:53 Nose MRSA Screen - Final Complete 12/20/24 12:02 Voided Urine Urine Culture - Final Complete 12/20/24 11:15 Blood Blood Culture - Preliminary NO GROWTH AFTER 72 HOURS OF INCUBATION. Resulted Labs and/or images reviewed: Labs reviewed by me, Image(s) reviewed by me Assessment/Plan Assessment/Plan Neurology # cerebral palsy, spastic type # history of seizures # Hypothermia on arrival 89.4 likely d/t sepsis? - home medication phenobarbital - phenobarbital levels ordered - baclofen pump - monitor Cardiovascular # questionable acute pericarditis # Bradycardia possibly secondary to Hypothermia - initial EKG showed widespread ST segment elevations - EKG today 12/21/24 improved from yesterday, minimal to none ST elevations, no AK depression - discontinued colchicine and ibuprofen Respiratory # Acute on chronic respiratory failure, hypercapnic # community-acquired pneumonia, respiratory culture positive for Pseudomonas and Staph aureus # small bilateral pleural effusions due to above # s/p trach 7 years ago, uncapped # repeated episodes of hypopnea - trach care - CXR: Central interstitial prominence - chest CT: Dependent bilateral lower lung aspiration, pneumonia with small bilateral pleural effusions - respiratory culture Staph aureus and Pseudomonas - started IV cefepime and p.o. levofloxacin - 12/24/2024 change antibiotics to cefepime/doxycycline (stop Levaquin) Ventilator: AC/VC TV 250 RR 12 PEEP 5cm H20 FiO2 30 GI # C diff colitis # s/p peg tube left middle abdomen - p.o. vancomycin 125 mg q.i.d. - Florastor - IV metronidazole 500 mg Q 8 hours # Peptic ulcer prophylaxis -Pantoprazole 40 mg IV daily # incontinent at baseline, patient's father refusing Lopez - monitor Nephrology # hyperkalemia, improving # hypomagnesemia, improving # hypocalcemia, asymptomatic - Lokelma once - monitor Infectious disease # C diff positive # sepsis possibly due to above - IV NS 600 mL bolus - IV NS at 60 cc/hour - p.o. vancomycin 125 mg q.i.d. -IV metronidazole 500 mg Q 8 hours - Florastor daily Hem/onc # leukopenia # thrombocytopenia - monitor DVT prophylaxis - holding due to thrombocytopenia Nutrition - patient's home nutrition Maite Lopez nutritional supplement via PEG tube Lines 20 gauge to left arm placed on 12/20/2024 Critical care time 83 minutes excluding procedures and discussion with family Code status discussed greater than 20 minutes: Full CODE STATUS. Plan discussed with: Patient My Orders Orders - ABIGAIL ARROYO MD Procedure Category Date Status Time Trach Collar Trial RT 12/24/24 Transmitted 12:13 Doxycycline Tablet PHA 12/24/24 In Process (Vibramycin Tablet) 22:00 Abg W/ Co-Ox RT 12/24/24 Logged 16:00 Date of Service: Dec 25, 2024 Billing Provider: ABIGAIL ARROYO MD Common Visit Codes: 09836-[id number] CARE 30-74 MIN ABIGAIL ARROYO MD Dec 25, 2024 09:36
--- NOTE | 2024-12-25 21:58 | DVHPN2 ---
Progress Note - Dictate Date Seen: Dec 25, 2024 Medical Necessity Reason Pt with a Central, PICC or Fol: No Subjective Patient was seen and evaluated in follow up in the ICU. The patient was tried on trach collar and is now off of the ventilator. Patient is on 8 L with humidification via trach collar. Patient is afebrile. K 3.1. Patient's electrolytes were replaced. vital signs Vital Sign Date Time Temp Pulse Resp B/P (MAP) Pulse Ox O2 Delivery O2 Flow Rate FiO2 12/25/24 11:09 99 Trach Collar 8.0 12/25/24 11:09 30 30 12/25/24 10:06 14 12/25/24 10:06 87 12/25/24 10:00 96.4 118/80 (93) 205.5 Total Intake and Output 12/24/24 12/24/24 12/25/24 15:00 23:00 07:00 Intake Total 12.5 ml 650 ml 500 ml Balance 12.5 ml 650 ml 500 ml medications Current Medications Medications Dose Ordered Sig/Reggie Route Start Time Stop Time Status Last Admin Dose Admin Loratadine 10 mg DAILY PEG 12/21/24 10:00 12/25/24 09:17 10 MG Phenylephrine HCl 1 spr BID NA 12/20/24 22:00 12/25/24 09:18 1 SPR Topiramate 100 mg BID PEG 12/20/24 22:00 12/25/24 09:17 100 MG Patient Own Medication 5 ml DAILY GT 12/21/24 10:00 UNV Al Hydrox/Mg Hydrox/Simethicone 5 ml DAILY GT 12/21/24 10:00 12/25/24 09:16 5 ML Phenobarbital 36 mg BID GT 12/20/24 22:00 12/25/24 09:17 36 MG Pantoprazole Sodium 40 mg DAILY IV 12/21/24 10:00 12/25/24 09:17 40 MG Patient Own Medication 150 ml QID PEG 12/20/24 20:00 12/25/24 11:56 150 ML Purified Water 120 ml QID PEG 12/20/24 20:00 12/25/24 11:56 120 ML Vancomycin HCl 125 mg QID PO 12/21/24 14:45 12/25/24 11:56 125 MG Saccharomyces Boulardii 250 mg DAILY PO 12/22/24 10:00 12/25/24 09:17 250 MG Metronidazole 100 ml @ 100 mls/hr Q8HR IV 12/21/24 22:00 12/25/24 05:08 100 MLS/HR Doxycycline Monohydrate 100 mg Q12HR PO 12/24/24 22:00 12/25/24 09:18 100 MG Cefepime HCl 50 ml @ 12.5 mls/hr Q12HR IV 12/24/24 22:00 12/25/24 09:17 12.5 MLS/HR Albuterol 2.5 mg Q4HPRN PRN NEB 12/24/24 20:15 12/24/24 22:10 2.5 MG Ipratropium [place] 0.5 mg Q4HPRN PRN NEB 12/24/24 20:15 12/24/24 22:11 0.5 MG objective GENERAL: Awake, Trach collar in place. EYES: PERRL, EOMI. Anicteric. HENT: Moist mucous membranes. LUNGS: Decreased breath sounds. CARDIOVASCULAR: Regular rate and rhythm. ABDOMEN: Soft, nontender and nondistended. EXTREMITIES: No edema. NEUROLOGIC: No focal neurological deficits. SKIN: Warm, dry. laboratory and microbiology Laboratory Tests 12/25/24 03:38 Test 12/25/24 03:38 Range/Units Serum Glucose 97 74-106 mg/dL Problem List Acute pericarditis. Possible sepsis with mild degree of shock. Likely hypothermia induced bradycardia, resolved. Cerebral palsy with PEG tube/tracheostomy/bed-bound status. Hypokalemia/hypomagnesemia. Assessment/Plan Continued all current supportive medical care. IV antibiotics as ordered. GI prophylactics. Additional plan as per the hospital course. Critical care time of 45 minutes provided to include time spent evaluation of patient at bedside, when appropriate patient/family education for diagnosis, treatment plan, review of pertinent medical information and discussion of care with specialty providers and PCP. Dietary Evaluation Review Comments: Nutrition Recommendation 1) TF [place] 5.5oz x 6 OR per day providing 975 kcal (98% energy needs) & 48gm protein (100% protein needs) 2) Water flush 40ml if allowed 3) MVI w/ minerals 1 tab daily 4) Consider TPN if pt cannot tolerate TF Expected Outcomes/Goals: intake to meet at least 75% estimated needs FU 2-3 days Plan discussed with: Other LINDY CÁRDENAS MD Dec 25, 2024 13:27
[2024-12-26] VITALS (27 sets, daily range): BP systolic 86–114; BP diastolic 39–68; PULSE 60–100; RESP 8–20; TEMP 96.4–99.1; O2SAT 90–100
--- NOTE | 2024-12-26 | DVHPN2 ---
Progress Note - Dictate Date Seen: Dec 25, 2024 Medical Necessity Reason Pt with a Central, PICC or Fol: No Subjective Patient seen and examined at bedside. Currently on supplemental oxygen via trach. Overnight events reviewed. vital signs Vital Sign Date Time Temp Pulse Resp B/P (MAP) Pulse Ox O2 Delivery O2 Flow Rate FiO2 12/25/24 23:00 98.2 83 12 98/60 (73) 98 208.8 12/25/24 22:00 Trach Collar 8 35 35 Total Intake and Output 12/25/24 12/25/24 12/26/24 15:00 23:00 07:00 Intake Total 200.0 ml 370 ml Balance 200.0 ml 370 ml medications Current Medications Medications Dose Ordered Sig/Reggie Route Start Time Stop Time Status Last Admin Dose Admin Loratadine 10 mg DAILY PEG 12/21/24 10:00 12/25/24 09:17 10 MG Phenylephrine HCl 1 spr BID NA 12/20/24 22:00 12/25/24 21:50 1 SPR Topiramate 100 mg BID PEG 12/20/24 22:00 12/25/24 09:17 100 MG Patient Own Medication 5 ml DAILY GT 12/21/24 10:00 UNV Al Hydrox/Mg Hydrox/Simethicone 5 ml DAILY GT 12/21/24 10:00 12/25/24 09:16 5 ML Phenobarbital 36 mg BID GT 12/20/24 22:00 12/25/24 21:49 36 MG Pantoprazole Sodium 40 mg DAILY IV 12/21/24 10:00 12/25/24 09:17 40 MG Patient Own Medication 150 ml QID PEG 12/20/24 20:00 12/25/24 21:50 150 ML Purified Water 120 ml QID PEG 12/20/24 20:00 12/25/24 21:50 120 ML Vancomycin HCl 125 mg QID PO 12/21/24 14:45 12/25/24 21:52 125 MG Saccharomyces Boulardii 250 mg DAILY PO 12/22/24 10:00 12/25/24 09:17 250 MG Metronidazole 100 ml @ 100 mls/hr Q8HR IV 12/21/24 22:00 12/25/24 20:30 100 MLS/HR Doxycycline Monohydrate 100 mg Q12HR PO 12/24/24 22:00 12/25/24 21:52 100 MG Cefepime HCl 50 ml @ 12.5 mls/hr Q12HR IV 12/24/24 22:00 12/25/24 21:50 12.5 MLS/HR Albuterol 2.5 mg Q4HPRN PRN NEB 12/24/24 20:15 12/24/24 22:10 2.5 MG Ipratropium [place] 0.5 mg Q4HPRN PRN NEB 12/24/24 20:15 12/24/24 22:11 0.5 MG objective Gen.: Patient lying in bed in no apparent distress. On supplemental oxygen via trach. Head: Normocephalic, atraumatic. Eyes: EOMI/PERRLA. Ears: Normal hearing. Normal anatomy. Neck/trachea: Trach in place. Nose: Normal external anatomy. Mouth: Moist mucous membranes. Chest: Decreased air entry bilaterally. No wheezing or rhonchi. Cardiovascular: Positive S1, positive S2. Regular rate and rhythm. Abdomen: Positive bowel sounds in all 4 quadrants. Soft, non-tender, non- distended. : Deferred. Rectal: Deferred. Skin: Warm, dry. Intact. Extremities: 2+ radial pulses bilaterally. No lower extremity edema. Neuro: Awake, alert, oriented x3. No gross motor or sensory deficits. Cranial nerves II through XII intact. Gait not assessed. laboratory and microbiology Laboratory Tests 12/25/24 03:38 Test 12/25/24 03:38 Range/Units Serum Glucose 97 74-106 mg/dL Assessment/Plan Impression: Acute on chronic hypoxic respiratory failure On mechanical ventilator S/p tracheostomy Cerebral palsy Hypotension, resolved. C. difficile infection. Events: Currently on supplemental oxygen, 8 LPM via trach Trach collar/T-piece - patient tolerating Taper O2 as tolerated Head of bed elevation Aspiration precautions Trach care per RT. Bronchodilators - Start Xopenex 1.25 mg q.6 hours Continue antibiotics CXR reveals pulmonary congestion, no significant change. Labs and imaging reviewed. Rest of plan as noted below. Plan: On mechanical ventilator via tracheostomy Trach size 5.0 [place] On 8 LPM. Titrate to keep O2 saturations above 92%. Trach collar Trach care per RT Pulmonary toileting Continue bronchodilators Continue antibiotics. F/u cultures. Pressors as necessary for hemodynamic support. Titrate to keep MAP greater than 65 mmHg. Protonix for GI ppx Monitor renal function Monitor electrolytes. Supplement as necessary. Monitor ins and outs. Maintain euvolemia. GI prophylaxis. DVT prophylaxis. Prognosis: Poor given patient's multiple co-morbidities. Condition: Critical Rest of plan per hospitalist and other consultants. A total of 35 minutes of critical care time was spent reviewing the patient record, examining the patient, making a diagnostic and therapeutic plan, discussing this plan with the medical personnel, following up on diagnostic studies and following the patient for clinical stability excluding any and all procedures. At least 50% of this time was spent in direct, [id number] contact. Thank you Dr. Ren for allowing me to participate in this patient's care. Further recommendations will depend on the patient's clinical course. Please do not hesitate to contact me if you have any questions or concerns. This medical document was created using an electronic medical record system with [employer] dictation system. Although these documentations are being carefully reviewed, there may still be some phonetic and typographical changes. The errors are purely typographical, due to imperfection on the software program, and do not reflect any compromise in the patient's medical care. Dietary Evaluation Review Comments: Nutrition Recommendation 1) TF [place] 5.5oz x 6 OR per day providing 975 kcal (98% energy needs) & 48gm protein (100% protein needs) 2) Water flush 40ml if allowed 3) MVI w/ minerals 1 tab daily 4) Consider TPN if pt cannot tolerate TF Expected Outcomes/Goals: intake to meet at least 75% estimated needs FU 2-3 days Plan discussed with: Other (JHON Jaramillo) Critical Care Time(min): 35 JESSICA RAI MD Dec 26, 2024 00:00
[2024-12-26] MEDS: MAALOX PLUS or MAALOX 30 ML GT SCH (12:09)
--- NOTE | 2024-12-26 14:31 | DVHPNRES ---
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 According to the patient's father at bedside, patient had gone for her physical therapy session where she was noted to have a blood pressure of 84/49 with a heart rate in the 50s which is what prompted this visit to the hospital. Per patient's father, patient will often have similar symptoms where her heart rate will go down to as low as 36 while she is sleeping, they know this because her alarm will beep when HR < 36; denies any symptoms of dizziness, nausea, weakness at the time of low blood pressure and heart rate. Review of systems could not be adequately completed as patient is nonverbal. However, per patient's father, 1 week ago patient did have 1 episode of diarrhea only. Past surgical history: Right hip surgery, back surgery for scoliosis, abdominal surgery Past Hospitalization: Denies any hospitalization in the past 6 months Social & Personal history: Smoking: Denies Drugs: Denies Alcohol: Denies Patient lives with father Allergies: Denies 12/22/2024: Patient more alert and reactive, looks better than yesterday. Continues to have watery bowel movement overnight. Decreased respiratory rate to 12. 12/23/2024: Respiratory cultures grew Pseudomonas and methicillin sensitive Staph aureus. Patient was started on cefepime and levofloxacin. Two bowel movements in the past 24 hours. Some blood-tinged secretions were noted while suctioning, however, they were likely from patient biting her own tongue. 12/24/24- no blood in mouth. No concern for tongue biting. We will change levofloxacin to doxycycline 100 mg twice daily. Continue cefepime. Continue oral vancomycin. Continue IV metronidazole. Changing Levaquin to toxic due to risk of C diff. continue G-tube feeds. We will do trial of trach collar trial. No vasopressor. Map is stable between 67-75. Oxygen saturation well, heart rate normal 70s. On ventilation settings are a.c. 12/2 50/30%/5.0. Continue rest of treatment per primary team plan 12/25/2024-patient was tried on trach collar yesterday in his now off of the ventilator. Patient is now on 8 L with humidification through the trach collar. Vital signs stable. No vasopressors. Keeping in close watch and D OU due to patient's baseline poor mental status secondary to cerebral palsy. Goal is to wean off oxygen and continue antibiotics. Electrolytes were repleted, hypocalcemia lower limit of normal with correction albumin 8.4 12/26/2024: Patient appears much better, per father at bedside patient acting and responding similar to her baseline. Patient noted to have increasing whitish respiratory secretions. Two bowel movements in the last 24 hours, which are slowly beginning to form. Increased patient's nutritional feeds to 6 times per day as per nutrition recommendation. Objective vital signs Vital Sign Date Time Temp Pulse Resp B/P (MAP) Pulse Ox O2 Delivery O2 Flow Rate FiO2 12/26/24 13:00 98.1 64 11 90/43 (59) 98 208.6 12/26/24 12:00 T-piece 10 35 35 Total Intake and Output 12/25/24 12/25/24 12/26/24 14:59 22:59 06:59 Intake Total 350.0 ml 470 ml 830 ml Balance 350.0 ml 470 ml 830 ml medications Current Medications Medications Dose Ordered Sig/Reggie Route Start Time Stop Time Status Last Admin Dose Admin Loratadine 10 mg DAILY PEG 12/21/24 10:00 12/26/24 10:07 10 MG Phenylephrine HCl 1 spr BID NA 12/20/24 22:00 12/26/24 10:09 1 SPR Topiramate 100 mg BID PEG 12/20/24 22:00 12/26/24 10:19 100 MG Patient Own Medication 5 ml DAILY GT 12/21/24 10:00 UNV Phenobarbital 36 mg BID GT 12/20/24 22:00 12/26/24 10:07 36 MG Pantoprazole Sodium 40 mg DAILY IV 12/21/24 10:00 12/26/24 10:08 40 MG Purified Water 120 ml QID PEG 12/20/24 20:00 12/26/24 12:09 120 ML Vancomycin HCl 125 mg QID PO 12/21/24 14:45 12/26/24 12:08 125 MG Saccharomyces Boulardii 250 mg DAILY PO 12/22/24 10:00 12/26/24 10:08 250 MG Metronidazole 100 ml @ 100 mls/hr Q8HR IV 12/21/24 22:00 12/26/24 14:23 100 MLS/HR Doxycycline Monohydrate 100 mg Q12HR PO 12/24/24 22:00 12/26/24 10:07 100 MG Cefepime HCl 50 ml @ 12.5 mls/hr Q12HR IV 12/24/24 22:00 12/26/24 10:08 12.5 MLS/HR Albuterol 2.5 mg Q4HPRN PRN NEB 12/24/24 20:15 12/26/24 08:12 2.5 MG Ipratropium [place] 0.5 mg Q4HPRN PRN NEB 12/24/24 20:15 12/26/24 08:12 0.5 MG Al Hydrox/Mg Hydrox/Simethicone 30 ml DAILY GT 12/26/24 10:22 12/26/24 12:09 30 ML Patient Own Medication 150 ml Q4HR PEG 12/26/24 16:00 UNV Examination General Appearance: Resting. Trach in place. Moist mucous membranes. Equal and reactive pupils. Head Exam: Normal inspection Neck Exam: Normal inspection. Non-tender. Normal alignment Pulmonary/Respiratory: Chest non-tender. Coarse bilateral breath sounds Cardiovascular/Chest: Regular rate and rhythm. No murmurs. No JVD. Peripheral Pulses: 2+ Radial (R). 2+ Radial (L). 2+ Pedal (R). 2+ Pedal (L) Abdominal Exam: Normal bowel sounds. Soft. normal abdomen, no visible veins, Nontender. No hepatospenomegaly. PEG tube left middle abdomen, baclofen pump right lower quadrant. Ankle Exam: Negative ankle edema Lower extremities: Negative lower extremity edema Skin Exam: Old healed wounds noted on bilateral heels. Skin tear noted on right buttock laboratory and microbiology Laboratory Tests 12/25/24 03:38 Test 12/25/24 03:38 Range/Units Serum Glucose 97 74-106 mg/dL Microbiology Date/Time Source Procedure Growth Status 12/21/24 00:40 Stool Stool Culture - Final Complete 12/21/24 00:40 Stool Shiga Toxin I & II - Final Complete 12/21/24 00:40 Stool Clostridium difficile Toxin Assay - Final Complete 12/20/24 18:55 Sputum Gram Stain - Final Complete 12/20/24 18:55 Respiratory Culture - Final Pseudomonas aeruginosa Staphylococcus aureus Complete 12/20/24 18:53 Nose MRSA Screen - Final Complete 12/20/24 12:02 Voided Urine Urine Culture - Final Complete 12/20/24 11:15 Blood Blood Culture - Final NO GROWTH AFTER 5 DAYS OF INCUBATION. Complete Labs and/or images reviewed: Labs reviewed by me, Image(s) reviewed by me Problem List/Assessment/Plan Problem List/Assessment/Plan Neurology # cerebral palsy, spastic type # history of seizures # Hypothermia on arrival 89.4 likely d/t sepsis? - home medication phenobarbital - phenobarbital levels ordered; within normal limits - baclofen pump - monitor Cardiovascular # questionable acute pericarditis # Bradycardia possibly secondary to Hypothermia - initial EKG showed widespread ST segment elevations - EKG today 12/21/24 improved from yesterday, minimal to none ST elevations, no NM depression - discontinued colchicine and ibuprofen Respiratory # Acute on chronic respiratory failure, hypercapnic # community-acquired pneumonia, respiratory culture positive for Pseudomonas and Staph aureus # small bilateral pleural effusions due to above # s/p trach 7 years ago, uncapped # repeated episodes of hypopnea - [facility] care - CXR: Central interstitial prominence - chest CT: Dependent bilateral lower lung aspiration, pneumonia with small bilateral pleural effusions - respiratory culture Staph aureus and Pseudomonas - started IV cefepime and p.o. levofloxacin; discontinued levofloxacin on 12/24/2024 - added doxycycline 100 mg b.i.d. on 12/24/2024 - off of ventilator as of 12/24/2024 GI # C diff colitis , improving # s/p peg tube left middle abdomen - p.o. vancomycin 125 mg q.i.d. - Florastor - IV metronidazole 500 mg Q 8 hours # Peptic ulcer prophylaxis -Pantoprazole 40 mg IV daily # incontinent at baseline, patient's father refusing Lopez - monitor Nephrology # hyperkalemia, improving # hypokalemia, improving # hypomagnesemia, improving # hypocalcemia, asymptomatic - Lokelma once - repleted - monitor Infectious disease # C diff positive # sepsis possibly due to above versus pneumonia - IV NS 600 mL bolus - IV NS at 60 cc/hour - p.o. vancomycin 125 mg q.i.d. -IV metronidazole 500 mg Q 8 hours - Florastor daily - doxycycline 100 mg b.i.d., cefepime Hem/onc # leukopenia # thrombocytopenia - monitor DVT prophylaxis - holding due to thrombocytopenia Nutrition - patient's home nutrition Maite Lopez nutritional supplement via PEG tube Lines 20 gauge to left arm placed on 12/20/2024 Critical care time 83 minutes excluding procedures and discussion with family Code status discussed greater than 20 minutes: Full CODE STATUS. Father, Mr. Wang at bedside was explained details about plan of care, all questions were answered and concerns were addressed. Plan discussed with Dr. Reddy; to continue antibiotics and monitor if secretions increase or get mucopurulent Plan discussed with: Other (Patient's father, RN) My Orders My Orders Orders - SANDIP GODOY RESIDENT Procedure Category Date Status Time Comprehensive LAB 12/26/24 Logged Metabolic Panel 12:39 (Nf) Peg Tube Feeding PHA 12/26/24 Logged 16:00 Dietary Evaluation Review Comments: Nutrition Recommendation 1) TF [employer] 5.5oz x 6 OR per day providing 975 kcal (98% energy needs) & 48gm protein (100% protein needs) 2) Water flush 40ml if allowed 3) MVI w/ minerals 1 tab daily 4) Consider TPN if pt cannot tolerate TF Expected Outcomes/Goals: intake to meet at least 75% estimated needs FU 2-3 days SANDIP GODOY RESIDENT Dec 26, 2024 14:31
[2024-12-26 15:05] LABS: Hematocrit 36.0 % (36.0-46.0); Hemoglobin 12.0 g/dL (12.2-16.2); Mean Corpuscular Hemoglobin 31.1 pg (28.0-32.0); Mean Corpuscular Volume 93.0 fL (80.0-100.0); Nucleated Red Blood Cells % 0.1 %
[2024-12-26 15:12] LABS: Alanine Aminotransferase 20 U/L (7-40); Anion Gap 9 (5-15); BUN/Creatinine Ratio 29.4 (10.0-20.0); Blood Urea Nitrogen 15 mg/dL (9-23); Glucose 89 mg/dL (74-106); Potassium 3.6 mmol/L (3.5-5.1); Sodium 141 mmol/L (136-145)
[2024-12-26 15:13] LABS: Albumin 2.8 g/dL (3.2-4.8); Alkaline Phosphatase 118 U/L (46-116); Bilirubin, Total < 0.2 mg/dL (0.2-1.0); Calcium 7.8 mg/dL (8.7-10.4); Carbon Dioxide 20 mmol/L (20-31); Chloride 112 mmol/L (98-107); Total Protein 5.2 g/dL (5.7-8.2)
[2024-12-26] MEDS: [UNRECOGNIZED DRUG - OTHER] PEG SCH (16:00)
--- NOTE | 2024-12-26 20:18 | DVH ---
LEFT Upper Extremity Venous Duplex Clinical History: SWELLING Comparison: None Findings: Duplex Doppler evaluation of the venous system of the LEFT lower neck and upper extremity including c olor Doppler and spectral/pulsed waveform analysis was performed. The internal jugular vein demonstrates appropriate compressibility and waveform variability. The subclavian vein is patent on color Doppler evaluation without intraluminal thrombus and demonstra elliot waveform variability. The visualized portion of the brachiocephalic vein is patent on color Doppler evaluation without intr aluminal thrombus and demonstrates waveform variability. The axillary vein demonstrates appropriate compressibility and waveform variability. The brachial veins demonstrate appropriate compressibility and patency on Doppler evaluation. The basilic vein not seen The cephalic vein demonstrates appropriate compressibility and patency on Doppler evaluation. Impression: No venous thrombus identified in the LEFT upper extremity vessels evaluated above. If clinical concern/symptoms persist or worsen, short-interval follow-up study is suggested.
--- NOTE | 2024-12-26 21:32 | DVHPN2 ---
Progress Note - Dictate Date Seen: Dec 26, 2024 Medical Necessity Reason Pt with a Central, PICC or Fol: No Subjective Patient was seen and evaluated in follow up in the ICU. Patient on trach collar. Per father at bedside patient acting and responding similar to her baseline. She has increasing whitish respiratory secretions. Patients BM are starting to be formed. H&H stable. vital signs Vital Sign Date Time Temp Pulse Resp B/P (MAP) Pulse Ox O2 Delivery O2 Flow Rate FiO2 12/26/24 20:00 98.1 95 12 100/61 (74) 97 208.6 12/26/24 19:20 T-piece 10 30 Cool Aerosol 30 Total Intake and Output 12/25/24 12/25/24 12/26/24 15:00 23:00 07:00 Intake Total 200.0 ml 470 ml 830 ml Balance 200.0 ml 470 ml 830 ml medications Current Medications Medications Dose Ordered Sig/Reggie Route Start Time Stop Time Status Last Admin Dose Admin Loratadine 10 mg DAILY PEG 12/21/24 10:00 12/26/24 10:07 10 MG Phenylephrine HCl 1 spr BID NA 12/20/24 22:00 12/26/24 21:13 1 SPR Topiramate 100 mg BID PEG 12/20/24 22:00 12/26/24 21:11 100 MG Patient Own Medication 5 ml DAILY GT 12/21/24 10:00 UNV Phenobarbital 36 mg BID GT 12/20/24 22:00 12/26/24 21:11 36 MG Pantoprazole Sodium 40 mg DAILY IV 12/21/24 10:00 12/26/24 10:08 40 MG Purified Water 120 ml QID PEG 12/20/24 20:00 12/26/24 21:12 120 ML Vancomycin HCl 125 mg QID PO 12/21/24 14:45 12/26/24 21:11 125 MG Saccharomyces Boulardii 250 mg DAILY PO 12/22/24 10:00 12/26/24 10:08 250 MG Metronidazole 100 ml @ 100 mls/hr Q8HR IV 12/21/24 22:00 12/26/24 20:52 100 MLS/HR Doxycycline Monohydrate 100 mg Q12HR PO 12/24/24 22:00 12/26/24 21:11 100 MG Cefepime HCl 50 ml @ 12.5 mls/hr Q12HR IV 12/24/24 22:00 12/26/24 21:11 12.5 MLS/HR Albuterol 2.5 mg Q4HPRN PRN NEB 12/24/24 20:15 12/26/24 08:12 2.5 MG Ipratropium [place] 0.5 mg Q4HPRN PRN NEB 12/24/24 20:15 12/26/24 08:12 0.5 MG Al Hydrox/Mg Hydrox/Simethicone 30 ml DAILY GT 12/26/24 10:22 12/26/24 12:09 30 ML Patient Own Medication 150 ml Q4HR PEG 12/26/24 16:00 12/26/24 21:12 150 ML objective GENERAL: Awake, Trach collar in place. EYES: PERRL, EOMI. Anicteric. HENT: Moist mucous membranes. LUNGS: Decreased breath sounds. CARDIOVASCULAR: Regular rate and rhythm. ABDOMEN: Soft, nontender and nondistended. EXTREMITIES: No edema. NEUROLOGIC: No focal neurological deficits. SKIN: Warm, dry. laboratory and microbiology Laboratory Tests 12/26/24 14:12 Test 12/26/24 14:12 Range/Units Serum Glucose 89 74-106 mg/dL Problem List Acute pericarditis. Possible sepsis with mild degree of shock. Likely hypothermia induced bradycardia, resolved. Cerebral palsy with PEG tube/tracheostomy/bed-bound status. Hypokalemia/hypomagnesemia. Assessment/Plan Continued all current supportive medical care. IV antibiotics as ordered. GI prophylactics. Additional plan as per the hospital course. Critical care time of 45 minutes provided to include time spent evaluation of patient at bedside, when appropriate patient/family education for diagnosis, treatment plan, review of pertinent medical information and discussion of care with specialty providers and PCP. Mechanical ventilator parameters, treatment and adjustments have personally been reviewed by me and treatment plan by cigarette machine operator has also been reviewed. Dietary Evaluation Review Comments: Nutrition Recommendation 1) TF [employer] 5.5oz x 6 OR per day providing 975 kcal (98% energy needs) & 48gm protein (100% protein needs) 2) Water flush 40ml if allowed 3) MVI w/ minerals 1 tab daily 4) Consider TPN if pt cannot tolerate TF Expected Outcomes/Goals: intake to meet at least 75% estimated needs FU 2-3 days Plan discussed with: LINDY Garza MD Dec 26, 2024 21:32
[2024-12-27] VITALS (27 sets, daily range): BP systolic 80–119; BP diastolic 38–89; PULSE 57–107; RESP 7–26; TEMP 97.7–99.8; O2SAT 97–100
--- NOTE | 2024-12-27 04:38 | DVH ---
CHEST RADIOGRAPH Indication: pna Technique: Single frontal view of the chest was obtained COMPARISON: XY CHEST PORTABLE on DOS: 12/25/24, XY CHEST PORTABLE on DOS: 12/24/24, XY CHEST PORTABLE on DOS: 12/23/24, XY CHEST PORTABLE on DOS: 12/22/24, XY CHEST PORTABLE on DOS: 12/20/24 FINDINGS: Lines and Tubes: Unchanged. Lungs: Improved aeration with interval decrease in multifocal bilateral opacities. Pleura: No effusion. No pneumothorax. Cardiomediastinal contours: Unremarkable Bones: Unremarkable IMPRESSION: 1. Interval improvement in aeration and decrease in multifocal bilateral opacities. 2. Lines and tubes unchanged.
[2024-12-27 14:27] LABS: Hematocrit 35.9 % (36.0-46.0); Hemoglobin 11.8 g/dL (12.2-16.2); Mean Corpuscular Hemoglobin 30.5 pg (28.0-32.0); Mean Corpuscular Volume 92.5 fL (80.0-100.0); Nucleated Red Blood Cells % 0.0 %
[2024-12-27 14:39] LABS: Sodium 143 mmol/L (136-145)
[2024-12-27 14:41] LABS: Anion Gap 6 (5-15); Carbon Dioxide 23 mmol/L (20-31)
[2024-12-27 14:46] LABS: BUN/Creatinine Ratio 29.2 (10.0-20.0); Blood Urea Nitrogen 14 mg/dL (9-23); Glucose 84 mg/dL (74-106)
[2024-12-27 14:49] LABS: Calcium 8.5 mg/dL (8.7-10.4); Chloride 114 mmol/L (98-107); Potassium 3.1 mmol/L (3.5-5.1)
--- NOTE | 2024-12-27 16:34 | DVHPNRES ---
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 According to the patient's father at bedside, patient had gone for her physical therapy session where she was noted to have a blood pressure of 84/49 with a heart rate in the 50s which is what prompted this visit to the hospital. Per patient's father, patient will often have similar symptoms where her heart rate will go down to as low as 36 while she is sleeping, they know this because her alarm will beep when HR < 36; denies any symptoms of dizziness, nausea, weakness at the time of low blood pressure and heart rate. Review of systems could not be adequately completed as patient is nonverbal. However, per patient's father, 1 week ago patient did have 1 episode of diarrhea only. Past surgical history: Right hip surgery, back surgery for scoliosis, abdominal surgery Past Hospitalization: Denies any hospitalization in the past 6 months Social & Personal history: Smoking: Denies Drugs: Denies Alcohol: Denies Patient lives with father Allergies: Denies 12/22/2024: Patient more alert and reactive, looks better than yesterday. Continues to have watery bowel movement overnight. Decreased respiratory rate to 12. 12/23/2024: Respiratory cultures grew Pseudomonas and methicillin sensitive Staph aureus. Patient was started on cefepime and levofloxacin. Two bowel movements in the past 24 hours. Some blood-tinged secretions were noted while suctioning, however, they were likely from patient biting her own tongue. 12/24/24- no blood in mouth. No concern for tongue biting. We will change levofloxacin to doxycycline 100 mg twice daily. Continue cefepime. Continue oral vancomycin. Continue IV metronidazole. Changing Levaquin to toxic due to risk of C diff. continue G-tube feeds. We will do trial of trach collar trial. No vasopressor. Map is stable between 67-75. Oxygen saturation well, heart rate normal 70s. On ventilation settings are a.c. 12/2 50/30%/5.0. Continue rest of treatment per primary team plan 12/25/2024-patient was tried on trach collar yesterday in his now off of the ventilator. Patient is now on 8 L with humidification through the trach collar. Vital signs stable. No vasopressors. Keeping in close watch and D OU due to patient's baseline poor mental status secondary to cerebral palsy. Goal is to wean off oxygen and continue antibiotics. Electrolytes were repleted, hypocalcemia lower limit of normal with correction albumin 8.4 12/26/2024: Patient appears much better, per father at bedside patient acting and responding similar to her baseline. Patient noted to have increasing whitish respiratory secretions. Two bowel movements in the last 24 hours, which are slowly beginning to form. Increased patient's nutritional feeds to 6 times per day as per nutrition recommendation. 12/27/24: Patient seen and examined at bedside. Improvement in clinical status, per patient's father at bedside patient appearing similar to her baseline. Frothy secretions noted, 2 bowel movements overnight slowly forming. Discontinue doxycycline and cefepime, started patient on levofloxacin 500 mg daily. Discontinued IV metronidazole and started patient on p.o. metronidazole. Objective vital signs Vital Sign Date Time Temp Pulse Resp B/P (MAP) Pulse Ox O2 Delivery O2 Flow Rate FiO2 12/27/24 15:00 60 13 80/40 (53) 100 12/27/24 14:00 T-piece 6 28 28 12/27/24 12:00 99.8 99.8 Total Intake and Output 12/26/24 12/26/24 12/27/24 15:00 23:00 07:00 Intake Total 37.5 ml 1020 ml 750 ml Balance 37.5 ml 1020 ml 750 ml medications Current Medications Medications Dose Ordered Sig/Reggie Route Start Time Stop Time Status Last Admin Dose Admin Loratadine 10 mg DAILY PEG 12/21/24 10:00 12/27/24 10:03 10 MG Phenylephrine HCl 1 spr BID NA 12/20/24 22:00 12/27/24 10:05 1 SPR Topiramate 100 mg BID PEG 12/20/24 22:00 12/27/24 10:03 100 MG Patient Own Medication 5 ml DAILY GT 12/21/24 10:00 UNV Phenobarbital 36 mg BID GT 12/20/24 22:00 12/27/24 10:03 36 MG Pantoprazole Sodium 40 mg DAILY IV 12/21/24 10:00 12/27/24 10:03 40 MG Purified Water 120 ml QID PEG 12/20/24 20:00 12/27/24 12:14 120 ML Vancomycin HCl 125 mg QID PO 12/21/24 14:45 12/27/24 12:13 125 MG Saccharomyces Boulardii 250 mg DAILY PO 12/22/24 10:00 12/27/24 10:03 250 MG Metronidazole 100 ml @ 100 mls/hr Q8HR IV 12/21/24 22:00 12/27/24 13:41 100 MLS/HR Doxycycline Monohydrate 100 mg Q12HR PO 12/24/24 22:00 12/27/24 10:03 100 MG Cefepime HCl 50 ml @ 12.5 mls/hr Q12HR IV 12/24/24 22:00 12/27/24 10:04 12.5 MLS/HR Albuterol 2.5 mg Q4HPRN PRN NEB 12/24/24 20:15 12/26/24 08:12 2.5 MG Ipratropium Odd 0.5 mg Q4HPRN PRN NEB 12/24/24 20:15 12/26/24 08:12 0.5 MG Al Hydrox/Mg Hydrox/Simethicone 30 ml DAILY GT 12/26/24 10:22 12/27/24 10:05 30 ML Patient Own Medication 150 ml Q4HR PEG 12/26/24 16:00 12/27/24 13:42 150 ML Examination General Appearance: Resting. Trach in place. Moist mucous membranes. Equal and reactive pupils. Head Exam: Normal inspection Neck Exam: Normal inspection. Non-tender. Normal alignment Pulmonary/Respiratory: Chest non-tender. Coarse bilateral breath sounds Cardiovascular/Chest: Regular rate and rhythm. No murmurs. No JVD. Peripheral Pulses: 2+ Radial (R). 2+ Radial (L). 2+ Pedal (R). 2+ Pedal (L) Abdominal Exam: Normal bowel sounds. Soft. normal abdomen, no visible veins, Nontender. No hepatospenomegaly. PEG tube left middle abdomen, baclofen pump right lower quadrant. Ankle Exam: Negative ankle edema Lower extremities: Negative lower extremity edema Skin Exam: Old healed wounds noted on bilateral heels. Skin tear noted on right buttock laboratory and microbiology Laboratory Tests 12/27/24 14:10 Test 12/27/24 14:10 Range/Units Serum Glucose 84 74-106 mg/dL Microbiology Date/Time Source Procedure Growth Status 12/21/24 00:40 Stool Stool Culture - Final Complete 12/21/24 00:40 Stool Shiga Toxin I & II - Final Complete 12/21/24 00:40 Stool Clostridium difficile Toxin Assay - Final Complete 12/20/24 18:55 Sputum Gram Stain - Final Complete 12/20/24 18:55 Respiratory Culture - Final Pseudomonas aeruginosa Staphylococcus aureus Complete 12/20/24 18:53 Nose MRSA Screen - Final Complete 12/20/24 12:02 Voided Urine Urine Culture - Final Complete 12/20/24 11:15 Blood Blood Culture - Final NO GROWTH AFTER 5 DAYS OF INCUBATION. Complete Labs and/or images reviewed: Labs reviewed by me, Image(s) reviewed by me Problem List/Assessment/Plan Problem List/Assessment/Plan Neurology # cerebral palsy, spastic type # history of seizures # Hypothermia on arrival 89.4 likely d/t sepsis? - home medication phenobarbital - phenobarbital levels ordered; within normal limits - baclofen pump - monitor Cardiovascular # questionable acute pericarditis # Bradycardia possibly secondary to Hypothermia - initial EKG showed widespread ST segment elevations - EKG today 12/21/24 improved from yesterday, minimal to none ST elevations, no OH depression - discontinued colchicine and ibuprofen Respiratory # Acute on chronic respiratory failure, hypercapnic # community-acquired pneumonia, respiratory culture positive for Pseudomonas and Staph aureus # small bilateral pleural effusions due to above # s/p trach 7 years ago, uncapped # repeated episodes of hypopnea # pulmonary edema - [facility] care - CXR: Central interstitial prominence - chest CT: Dependent bilateral lower lung aspiration, pneumonia with small bilateral pleural effusions - respiratory culture Staph aureus and Pseudomonas - started IV cefepime and p.o. levofloxacin; discontinued levofloxacin on 12/24/2024 - added doxycycline 100 mg b.i.d. on 12/24/2024 - off of ventilator as of 12/24/2024 - IV Lasix 20 mg once GI # C diff colitis , improving # s/p peg tube left middle abdomen - p.o. vancomycin 125 mg q.i.d. - Florastor - IV metronidazole 500 mg Q 8 hours # Peptic ulcer prophylaxis -Pantoprazole 40 mg IV daily # incontinent at baseline, patient's father refusing Lopez - monitor Nephrology # hyperkalemia, improving # hypokalemia, improving # hypomagnesemia, improving # hypocalcemia, asymptomatic - Lokelma once - repleted - monitor Infectious disease # C diff positive # sepsis possibly due to above versus pneumonia - IV NS 600 mL bolus - IV NS at 60 cc/hour stopped - p.o. vancomycin 125 mg q.i.d. -discontinue IV metronidazole 500 mg Q 8 hours 12/27/2024, started p.o. metronidazole instead - Florastor daily - discontinued doxycycline 100 mg b.i.d., cefepime on 12/27/2024 - started on levofloxacin 500 mg once daily Hem/onc # leukopenia # thrombocytopenia - monitor DVT prophylaxis - holding due to thrombocytopenia Nutrition - patient's home nutrition Maite Lopez nutritional supplement via PEG tube Lines Right 22 gauge PICC line placed on 12/26/2024 Critical care time 63 minutes excluding procedures and discussion with family Code status discussed greater than 20 minutes: Full CODE STATUS. Father, Mr. Wang at bedside was explained details about plan of care, all questions were answered and concerns were addressed. Plan discussed with Dr. Flores to continue antibiotics and monitor if secretions increase or get mucopurulent Plan discussed with: Other (Patient's father, RN) My Orders My Orders Orders - SANDIP GODOY Procedure Category Date Status Time Lt Upper Dvt US 12/26/24 Resulted 16:35 Levofloxacin Tablet PHA 12/28/24 Transmitted (Levaquin Tablet) 10:00 Metronidazole Tablet PHA 12/27/24 Transmitted (Flagyl Tablet) 22:00 Dietary Evaluation Review Comments: Nutrition Recommendation 1) TF [employer] 5.5oz x 6 OR per day providing 975 kcal (98% energy needs) & 48gm protein (100% protein needs) 2) Water flush 40ml if allowed 3) MVI w/ minerals 1 tab daily 4) Consider TPN if pt cannot tolerate TF Expected Outcomes/Goals: intake to meet at least 75% estimated needs FU 2-3 days Date of Service: Dec 27, 2024 Billing Provider: NATHANAEL FLORES MD Common Visit Codes: [id number] CARE 30-74 MIN SANDIP GODOY Dec 27, 2024 16:34 NATHANAEL FLORES MD Dec 28, 2024 17:14
[2024-12-27] MEDS: POTASSIUM EFFERVESENT TAB 25 MEQ GT ONE (16:46)
[2024-12-27] MEDS: FUROSEMIDE 20 MG/2 ML VIAL IV ONE (16:47)
[2024-12-27 20:41] LABS: Base Excess 0.3 mmol/L (-2.0-3.0)
[2024-12-27] MEDS: metroNIDAZOLE 500 MG TAB GT SCH (22:23)
--- NOTE | 2024-12-27 23:36 | DVHPN2 ---
Progress Note - Dictate Date Seen: Dec 27, 2024 Medical Necessity Reason Pt with a Central, PICC or Fol: No Subjective Patient was seen and evaluated in follow up in the ICU. Patient on trach collar. Patient is slowly improving. Patient has frothy secretions noted. Patient had 2 bowel movements overnight slowly forming. K 3.1. LUE Venous Duplex shows no venous thrombus identified in the LUE. Chest x-ray shows interval improvement in aeration and decrease in multifocal bilateral opacities. vital signs Vital Sign Date Time Temp Pulse Resp B/P (MAP) Pulse Ox O2 Delivery O2 Flow Rate FiO2 12/27/24 21:00 89 11 115/76 (89) 100 12/27/24 20:00 T-piece 6 28 28 12/27/24 20:00 98.2 98.2 Total Intake and Output 12/26/24 12/26/24 12/27/24 15:00 23:00 07:00 Intake Total 37.5 ml 1020 ml 750 ml Balance 37.5 ml 1020 ml 750 ml medications Current Medications Medications Dose Ordered Sig/Reggie Route Start Time Stop Time Status Last Admin Dose Admin Loratadine 10 mg DAILY PEG 12/21/24 10:00 12/27/24 10:03 10 MG Phenylephrine HCl 1 spr BID NA 12/20/24 22:00 12/27/24 10:05 1 SPR Topiramate 100 mg BID PEG 12/20/24 22:00 12/27/24 22:24 100 MG Patient Own Medication 5 ml DAILY GT 12/21/24 10:00 UNV Phenobarbital 36 mg BID GT 12/20/24 22:00 12/27/24 22:25 36 MG Pantoprazole Sodium 40 mg DAILY IV 12/21/24 10:00 12/27/24 10:03 40 MG Purified Water 120 ml QID PEG 12/20/24 20:00 12/27/24 22:25 120 ML Vancomycin HCl 125 mg QID PO 12/21/24 14:45 12/27/24 22:22 125 MG Saccharomyces Boulardii 250 mg DAILY PO 12/22/24 10:00 12/27/24 10:03 250 MG Albuterol 2.5 mg Q4HPRN PRN NEB 12/24/24 20:15 12/26/24 08:12 2.5 MG Ipratropium [place] 0.5 mg Q4HPRN PRN NEB 12/24/24 20:15 12/26/24 08:12 0.5 MG Al Hydrox/Mg Hydrox/Simethicone 30 ml DAILY GT 12/26/24 10:22 12/27/24 10:05 30 ML Patient Own Medication 150 ml Q4HR PEG 12/26/24 16:00 12/27/24 18:31 150 ML Levofloxacin 500 mg DAILY GT 12/28/24 10:00 Metronidazole 500 mg Q8HR GT 12/27/24 22:00 12/27/24 22:23 500 MG objective GENERAL: Awake, Trach collar in place. EYES: PERRL, EOMI. Anicteric. HENT: Moist mucous membranes. LUNGS: Decreased breath sounds. CARDIOVASCULAR: Regular rate and rhythm. ABDOMEN: Soft, nontender and nondistended. EXTREMITIES: No edema. NEUROLOGIC: No focal neurological deficits. SKIN: Warm, dry. laboratory and microbiology Laboratory Tests 12/27/24 14:10 Test 12/27/24 14:10 Range/Units Serum Glucose 84 74-106 mg/dL Problem List Acute pericarditis. Possible sepsis with mild degree of shock. Likely hypothermia induced bradycardia, resolved. Cerebral palsy with PEG tube/tracheostomy/bed-bound status. Hypokalemia/hypomagnesemia. Assessment/Plan Continued all current supportive medical care. Nebulized breathing treatments. IV antibiotics as ordered. GI prophylactics. Additional plan as per the hospital course. Critical care time of 45 minutes provided to include time spent evaluation of patient at bedside, when appropriate patient/family education for diagnosis, treatment plan, review of pertinent medical information and discussion of care with specialty providers and PCP. Mechanical ventilator parameters, treatment and adjustments have personally been reviewed by me and treatment plan by spa host has also been reviewed. Dietary Evaluation Review Comments: Nutrition Recommendation 1) TF [employer] 5.5oz x 6 OR per day providing 975 kcal (98% energy needs) & 48gm protein (100% protein needs) 2) Water flush 40ml if allowed 3) MVI w/ minerals 1 tab daily 4) Consider TPN if pt cannot tolerate TF Expected Outcomes/Goals: intake to meet at least 75% estimated needs FU 2-3 days Plan discussed with: Other LINDY CÁRDENAS MD Dec 27, 2024 23:36
[2024-12-28] VITALS (25 sets, daily range): BP systolic 76–125; BP diastolic 35–84; PULSE 49–90; RESP 8–19; TEMP 96.9–99.1; O2SAT 96–100
[2024-12-28] MEDS: levoFLOXacin 500 MG TAB GT SCH (09:36)
[2024-12-28 14:28] LABS: Hematocrit 32.0 % (36.0-46.0); Hemoglobin 10.8 g/dL (12.2-16.2); Mean Corpuscular Hemoglobin 30.9 pg (28.0-32.0); Mean Corpuscular Volume 91.8 fL (80.0-100.0); Nucleated Red Blood Cells % 0.1 %
[2024-12-28 14:38] LABS: Sodium 141 mmol/L (136-145)
[2024-12-28 14:39] LABS: Anion Gap 7 (5-15); Carbon Dioxide 27 mmol/L (20-31)
[2024-12-28 14:41] LABS: Calcium 8.4 mg/dL (8.7-10.4); Chloride 107 mmol/L (98-107); Potassium 3.2 mmol/L (3.5-5.1)
[2024-12-28 14:44] LABS: BUN/Creatinine Ratio 38.5 (10.0-20.0); Blood Urea Nitrogen 15 mg/dL (9-23); Glucose 97 mg/dL (74-106)
[2024-12-28] MEDS: POTASSIUM EFFERVESENT TAB 25 MEQ GT ONE (17:17)
--- NOTE | 2024-12-28 19:41 | DVHPNRES ---
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 According to the patient's father at bedside, patient had gone for her physical therapy session where she was noted to have a blood pressure of 84/49 with a heart rate in the 50s which is what prompted this visit to the hospital. Per patient's father, patient will often have similar symptoms where her heart rate will go down to as low as 36 while she is sleeping, they know this because her alarm will beep when HR < 36; denies any symptoms of dizziness, nausea, weakness at the time of low blood pressure and heart rate. Review of systems could not be adequately completed as patient is nonverbal. However, per patient's father, 1 week ago patient did have 1 episode of diarrhea only. Past surgical history: Right hip surgery, back surgery for scoliosis, abdominal surgery Past Hospitalization: Denies any hospitalization in the past 6 months Social & Personal history: Smoking: Denies Drugs: Denies Alcohol: Denies Patient lives with father Allergies: Denies 12/22/2024: Patient more alert and reactive, looks better than yesterday. Continues to have watery bowel movement overnight. Decreased respiratory rate to 12. 12/23/2024: Respiratory cultures grew Pseudomonas and methicillin sensitive Staph aureus. Patient was started on cefepime and levofloxacin. Two bowel movements in the past 24 hours. Some blood-tinged secretions were noted while suctioning, however, they were likely from patient biting her own tongue. 12/24/24- no blood in mouth. No concern for tongue biting. We will change levofloxacin to doxycycline 100 mg twice daily. Continue cefepime. Continue oral vancomycin. Continue IV metronidazole. Changing Levaquin to toxic due to risk of C diff. continue G-tube feeds. We will do trial of trach collar trial. No vasopressor. Map is stable between 67-75. Oxygen saturation well, heart rate normal 70s. On ventilation settings are a.c. 12/2 50/30%/5.0. Continue rest of treatment per primary team plan 12/25/2024-patient was tried on trach collar yesterday in his now off of the ventilator. Patient is now on 8 L with humidification through the trach collar. Vital signs stable. No vasopressors. Keeping in close watch and D OU due to patient's baseline poor mental status secondary to cerebral palsy. Goal is to wean off oxygen and continue antibiotics. Electrolytes were repleted, hypocalcemia lower limit of normal with correction albumin 8.4 12/26/2024: Patient appears much better, per father at bedside patient acting and responding similar to her baseline. Patient noted to have increasing whitish respiratory secretions. Two bowel movements in the last 24 hours, which are slowly beginning to form. Increased patient's nutritional feeds to 6 times per day as per nutrition recommendation. 12/27/24: Patient seen and examined at bedside. Improvement in clinical status, per patient's father at bedside patient appearing similar to her baseline. Frothy secretions noted, 2 bowel movements overnight slowly forming. Discontinue doxycycline and cefepime, started patient on levofloxacin 500 mg daily. Discontinued IV metronidazole and started patient on p.o. metronidazole. 12/28/24: Patient seen and examined at bedside. continued oral and endotracheal secretions, 1 BM overnight, soft (3 in 24 hours). day 9 of po vancomycin and day 2 of levofloxacin. Objective vital signs Vital Sign Date Time Temp Pulse Resp B/P (MAP) Pulse Ox O2 Delivery O2 Flow Rate FiO2 12/28/24 18:00 18 99 T-piece 6 28 28 12/28/24 18:00 90 112/66 (81) 12/28/24 16:00 99.1 99.1 Total Intake and Output 12/27/24 12/27/24 12/28/24 15:00 23:00 07:00 Intake Total 250 ml 690 ml Balance 250 ml 690 ml medications Current Medications Medications Dose Ordered Sig/Reggie Route Start Time Stop Time Status Last Admin Dose Admin Loratadine 10 mg DAILY PEG 12/21/24 10:00 12/28/24 09:36 10 MG Phenylephrine HCl 1 spr BID NA 12/20/24 22:00 12/27/24 22:00 1 SPR Topiramate 100 mg BID PEG 12/20/24 22:00 12/28/24 09:36 100 MG Patient Own Medication 5 ml DAILY GT 12/21/24 10:00 UNV Phenobarbital 36 mg BID GT 12/20/24 22:00 12/28/24 09:36 36 MG Pantoprazole Sodium 40 mg DAILY IV 12/21/24 10:00 12/28/24 09:33 40 MG Purified Water 120 ml QID PEG 12/20/24 20:00 12/28/24 17:17 120 ML Vancomycin HCl 125 mg QID PO 12/21/24 14:45 12/28/24 17:18 125 MG Saccharomyces Boulardii 250 mg DAILY PO 12/22/24 10:00 12/28/24 09:36 250 MG Albuterol 2.5 mg Q4HPRN PRN NEB 12/24/24 20:15 12/26/24 08:12 2.5 MG Ipratropium [place] 0.5 mg Q4HPRN PRN NEB 12/24/24 20:15 12/26/24 08:12 0.5 MG Al Hydrox/Mg Hydrox/Simethicone 30 ml DAILY GT 12/26/24 10:22 12/28/24 09:35 30 ML Patient Own Medication 150 ml Q4HR PEG 12/26/24 16:00 12/28/24 17:17 150 ML Levofloxacin 500 mg DAILY GT 12/28/24 10:00 12/28/24 09:36 500 MG Metronidazole 500 mg Q8HR GT 12/27/24 22:00 12/28/24 15:21 500 MG Examination General Appearance: Resting. Trach in place. Moist mucous membranes. Equal and reactive pupils. Head Exam: Normal inspection Neck Exam: Normal inspection. Non-tender. Normal alignment Pulmonary/Respiratory: Chest non-tender. Coarse bilateral breath sounds Cardiovascular/Chest: Regular rate and rhythm. No murmurs. No JVD. Peripheral Pulses: 2+ Radial (R). 2+ Radial (L). 2+ Pedal (R). 2+ Pedal (L) Abdominal Exam: Normal bowel sounds. Soft. normal abdomen, no visible veins, Nontender. No hepatospenomegaly. PEG tube left middle abdomen, baclofen pump right lower quadrant. Ankle Exam: Negative ankle edema Lower extremities: Negative lower extremity edema Skin Exam: Old healed wounds noted on bilateral heels. Skin tear noted on right buttock laboratory and microbiology Laboratory Tests 12/28/24 14:06 Test 12/28/24 14:06 Range/Units Serum Glucose 97 74-106 mg/dL Microbiology Date/Time Source Procedure Growth Status 12/21/24 00:40 Stool Stool Culture - Final Complete 12/21/24 00:40 Stool Shiga Toxin I & II - Final Complete 12/21/24 00:40 Stool Clostridium difficile Toxin Assay - Final Complete 12/20/24 18:55 Sputum Gram Stain - Final Complete 12/20/24 18:55 Respiratory Culture - Final Pseudomonas aeruginosa Staphylococcus aureus Complete 12/20/24 18:53 Nose MRSA Screen - Final Complete 12/20/24 12:02 Voided Urine Urine Culture - Final Complete 12/20/24 11:15 Blood Blood Culture - Final NO GROWTH AFTER 5 DAYS OF INCUBATION. Complete Problem List/Assessment/Plan Problem List/Assessment/Plan Neurology # cerebral palsy, spastic type # history of seizures # Hypothermia on arrival 89.4 likely d/t sepsis? - home medication phenobarbital - phenobarbital levels ordered; within normal limits - baclofen pump - monitor Cardiovascular # questionable acute pericarditis # Bradycardia possibly secondary to Hypothermia - initial EKG showed widespread ST segment elevations - EKG today 12/21/24 improved from yesterday, minimal to none ST elevations, no ID depression - discontinued colchicine and ibuprofen Respiratory # Acute on chronic respiratory failure, hypercapnic # community-acquired pneumonia, respiratory culture positive for Pseudomonas and Staph aureus # small bilateral pleural effusions due to above # s/p trach 7 years ago, uncapped # repeated episodes of hypopnea # pulmonary edema - trach care - CXR: Central interstitial prominence - chest CT: Dependent bilateral lower lung aspiration, pneumonia with small bilateral pleural effusions - respiratory culture Staph aureus and Pseudomonas - started IV cefepime and p.o. levofloxacin; discontinued levofloxacin on 12/24/2024 - added doxycycline 100 mg b.i.d. on 12/24/2024 - off of ventilator as of 12/24/2024 - IV Lasix 20 mg once GI # C diff colitis , improving # s/p peg tube left middle abdomen - p.o. vancomycin 125 mg q.i.d. - Florastor - IV metronidazole 500 mg Q 8 hours # Peptic ulcer prophylaxis -Pantoprazole 40 mg IV daily # incontinent at baseline, patient's father refusing Lopez - monitor Nephrology # hyperkalemia, improving # hypokalemia, improving # hypomagnesemia, improving # hypocalcemia, asymptomatic - Lokelma once - repleted - monitor Infectious disease # C diff positive # sepsis possibly due to above versus pneumonia - IV NS 600 mL bolus - IV NS at 60 cc/hour stopped - p.o. vancomycin 125 mg q.i.d. -discontinue IV metronidazole 500 mg Q 8 hours 12/27/2024, started p.o. metronidazole instead - Florastor daily - discontinued doxycycline 100 mg b.i.d., cefepime on 12/27/2024 - started on levofloxacin 500 mg once daily Hem/onc # leukopenia # thrombocytopenia - monitor DVT prophylaxis - holding due to thrombocytopenia Nutrition - patient's home nutrition Maite Re[employer]ind nutritional supplement via PEG tube Lines Right 22 gauge PICC line placed on 12/26/2024 Critical care time 63 minutes excluding procedures and discussion with family Code status discussed greater than 20 minutes: Full CODE STATUS. Father, Mr. Wang at bedside was explained details about plan of care, all questions were answered and concerns were addressed. Plan discussed with Dr. Flores Plan discussed with: Other (Patients father, RN) Dietary Evaluation Review Comments: Nutrition Recommendation 1) TF [employer] 5.5oz x 6 OR per day providing 975 kcal (98% energy needs) & 48gm protein (100% protein needs) 2) Water flush 40ml if allowed 3) MVI w/ minerals 1 tab daily 4) Consider TPN if pt cannot tolerate TF Expected Outcomes/Goals: intake to meet at least 75% estimated needs FU 2-3 days Date of Service: Dec 29, 2024 Billing Provider: NATHANAEL FLORES MD Common Visit Codes: [id number] CARE 30-74 MIN SANDIP GODOY RESIDENT Dec 28, 2024 19:41 NATHANAEL FLORES MD Dec 29, 2024 12:40
--- NOTE | 2024-12-28 23:32 | DVHPN2 ---
Progress Note - Dictate Date Seen: Dec 28, 2024 Medical Necessity Reason Pt with a Central, PICC or Fol: No Subjective Patient was seen and evaluated in follow up in the ICU. Patient on trach collar. Patient's father is at bedside. Patient had soft BM overnight. Patient received wound care earlier. K 3.2, potassium was replaced. vital signs Vital Sign Date Time Temp Pulse Resp B/P (MAP) Pulse Ox O2 Delivery O2 Flow Rate FiO2 12/28/24 12:00 88 12/28/24 12:00 98.3 13 101/58 (72) 98 98.3 12/28/24 12:00 T-piece 6 28 28 Total Intake and Output 12/27/24 12/27/24 12/28/24 15:00 23:00 07:00 Intake Total 250 ml 690 ml Balance 250 ml 690 ml medications Current Medications Medications Dose Ordered Sig/Reggie Route Start Time Stop Time Status Last Admin Dose Admin Loratadine 10 mg DAILY PEG 12/21/24 10:00 12/28/24 09:36 10 MG Phenylephrine HCl 1 spr BID NA 12/20/24 22:00 12/27/24 22:00 1 SPR Topiramate 100 mg BID PEG 12/20/24 22:00 12/28/24 09:36 100 MG Patient Own Medication 5 ml DAILY GT 12/21/24 10:00 UNV Phenobarbital 36 mg BID GT 12/20/24 22:00 12/28/24 09:36 36 MG Pantoprazole Sodium 40 mg DAILY IV 12/21/24 10:00 12/28/24 09:33 40 MG Purified Water 120 ml QID PEG 12/20/24 20:00 12/28/24 12:00 120 ML Vancomycin HCl 125 mg QID PO 12/21/24 14:45 12/28/24 12:56 125 MG Saccharomyces Boulardii 250 mg DAILY PO 12/22/24 10:00 12/28/24 09:36 250 MG Albuterol 2.5 mg Q4HPRN PRN NEB 12/24/24 20:15 12/26/24 08:12 2.5 MG Ipratropium [place] 0.5 mg Q4HPRN PRN NEB 12/24/24 20:15 12/26/24 08:12 0.5 MG Al Hydrox/Mg Hydrox/Simethicone 30 ml DAILY GT 12/26/24 10:22 12/28/24 09:35 30 ML Patient Own Medication 150 ml Q4HR PEG 12/26/24 16:00 12/28/24 09:37 150 ML Levofloxacin 500 mg DAILY GT 12/28/24 10:00 12/28/24 09:36 500 MG Metronidazole 500 mg Q8HR GT 12/27/24 22:00 12/28/24 06:31 500 MG objective GENERAL: Awake, Trach collar in place. EYES: PERRL, EOMI. Anicteric. HENT: Moist mucous membranes. LUNGS: Decreased breath sounds. CARDIOVASCULAR: Regular rate and rhythm. ABDOMEN: Soft, nontender and nondistended. EXTREMITIES: No edema. NEUROLOGIC: No focal neurological deficits. SKIN: Warm, dry. laboratory and microbiology Laboratory Tests 12/27/24 14:10 Test 12/27/24 14:10 Range/Units Serum Glucose 84 74-106 mg/dL Problem List Acute pericarditis. Possible sepsis with mild degree of shock. Likely hypothermia induced bradycardia, resolved. Cerebral palsy with PEG tube/tracheostomy/bed-bound status. Hypokalemia/hypomagnesemia. Assessment/Plan Continued all current supportive medical care. Nebulized breathing treatments. IV antibiotics as ordered. GI prophylactics. Additional plan as per the hospital course. Critical care time of 45 minutes provided to include time spent evaluation of patient at bedside, when appropriate patient/family education for diagnosis, treatment plan, review of pertinent medical information and discussion of care with specialty providers and PCP. Mechanical ventilator parameters, treatment and adjustments have personally been reviewed by me and treatment plan by tag stringer has also been reviewed. Dietary Evaluation Review Comments: Nutrition Recommendation 1) TF [place] 5.5oz x 6 OR per day providing 975 kcal (98% energy needs) & 48gm protein (100% protein needs) 2) Water flush 40ml if allowed 3) MVI w/ minerals 1 tab daily 4) Consider TPN if pt cannot tolerate TF Expected Outcomes/Goals: intake to meet at least 75% estimated needs FU 2-3 days Plan discussed with: LINDY Garza MD Dec 28, 2024 14:02
[2024-12-29] VITALS (26 sets, daily range): BP systolic 84–117; BP diastolic 42–70; PULSE 47–94; RESP 9–22; TEMP 97.5–98.7; O2SAT 9–100
--- NOTE | 2024-12-29 14:36 | DVHPN2 ---
Progress Note - Dictate Date Seen: Dec 29, 2024 Medical Necessity Reason Pt with a Central, PICC or Fol: No Subjective Patient was seen and evaluated in follow up in the ICU. No overnight events. Patient on trach collar. Patient has oral and endotracheal secretions. BM are forming. vital signs Vital Sign Date Time Temp Pulse Resp B/P (MAP) Pulse Ox O2 Delivery O2 Flow Rate FiO2 12/29/24 10:00 63 12/29/24 10:00 10 100 T-piece 6 28 28 12/29/24 08:00 103/58 (73) 12/29/24 04:00 98.0 98.0 Total Intake and Output 12/28/24 12/28/24 12/29/24 15:00 23:00 07:00 Intake Total 650 ml Balance 650 ml medications Current Medications Medications Dose Ordered Sig/Reggie Route Start Time Stop Time Status Last Admin Dose Admin Loratadine 10 mg DAILY PEG 12/21/24 10:00 12/29/24 09:30 10 MG Phenylephrine HCl 1 spr BID NA 12/20/24 22:00 12/29/24 09:35 1 SPR Topiramate 100 mg BID PEG 12/20/24 22:00 12/29/24 09:30 100 MG Patient Own Medication 5 ml DAILY GT 12/21/24 10:00 UNV Phenobarbital 36 mg BID GT 12/20/24 22:00 12/29/24 09:30 36 MG Pantoprazole Sodium 40 mg DAILY IV 12/21/24 10:00 12/29/24 09:29 40 MG Purified Water 120 ml QID PEG 12/20/24 20:00 12/29/24 06:01 120 ML Vancomycin HCl 125 mg QID PO 12/21/24 14:45 12/29/24 06:00 125 MG Saccharomyces Boulardii 250 mg DAILY PO 12/22/24 10:00 12/29/24 09:30 250 MG Albuterol 2.5 mg Q4HPRN PRN NEB 12/24/24 20:15 12/26/24 08:12 2.5 MG Ipratropium [place] 0.5 mg Q4HPRN PRN NEB 12/24/24 20:15 12/26/24 08:12 0.5 MG Al Hydrox/Mg Hydrox/Simethicone 30 ml DAILY GT 12/26/24 10:22 12/29/24 09:29 30 ML Patient Own Medication 150 ml Q4HR PEG 12/26/24 16:00 12/29/24 09:30 150 ML Levofloxacin 500 mg DAILY GT 12/28/24 10:00 12/29/24 09:30 500 MG Metronidazole 500 mg Q8HR GT 12/27/24 22:00 12/29/24 06:00 500 MG objective GENERAL: Awake, Trach collar in place. EYES: PERRL, EOMI. Anicteric. HENT: Moist mucous membranes. LUNGS: Decreased breath sounds. CARDIOVASCULAR: Regular rate and rhythm. ABDOMEN: Soft, nontender and nondistended. EXTREMITIES: No edema. NEUROLOGIC: No focal neurological deficits. SKIN: Warm, dry. laboratory and microbiology Laboratory Tests 12/28/24 14:06 Test 12/28/24 14:06 Range/Units Serum Glucose 97 74-106 mg/dL Problem List Acute pericarditis. Possible sepsis with mild degree of shock. Likely hypothermia induced bradycardia, resolved. Cerebral palsy with PEG tube/tracheostomy/bed-bound status. Hypokalemia/hypomagnesemia. Assessment/Plan Continued all current supportive medical care. Nebulized breathing treatments. IV antibiotics as ordered. GI prophylactics. Additional plan as per the hospital course. Critical care time of 45 minutes provided to include time spent evaluation of patient at bedside, when appropriate patient/family education for diagnosis, treatment plan, review of pertinent medical information and discussion of care with specialty providers and PCP. Mechanical ventilator parameters, treatment and adjustments have personally been reviewed by me and treatment plan by video coordinator has also been reviewed. Dietary Evaluation Review Comments: Nutrition Recommendation 1) TF [place] 5.5oz x 6 OR per day providing 975 kcal (98% energy needs) & 48gm protein (100% protein needs) 2) Water flush 40ml if allowed 3) MVI w/ minerals 1 tab daily 4) Consider TPN if pt cannot tolerate TF Expected Outcomes/Goals: intake to meet at least 75% estimated needs FU 2-3 days Plan discussed with: Patient LINDY CÁRDENAS MD Dec 29, 2024 12:07
--- NOTE | 2024-12-29 18:31 | DVHPNRES ---
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 According to the patient's father at bedside, patient had gone for her physical therapy session where she was noted to have a blood pressure of 84/49 with a heart rate in the 50s which is what prompted this visit to the hospital. Per patient's father, patient will often have similar symptoms where her heart rate will go down to as low as 36 while she is sleeping, they know this because her alarm will beep when HR < 36; denies any symptoms of dizziness, nausea, weakness at the time of low blood pressure and heart rate. Review of systems could not be adequately completed as patient is nonverbal. However, per patient's father, 1 week ago patient did have 1 episode of diarrhea only. Past surgical history: Right hip surgery, back surgery for scoliosis, abdominal surgery Past Hospitalization: Denies any hospitalization in the past 6 months Social & Personal history: Smoking: Denies Drugs: Denies Alcohol: Denies Patient lives with father Allergies: Denies 12/22/2024: Patient more alert and reactive, looks better than yesterday. Continues to have watery bowel movement overnight. Decreased respiratory rate to 12. 12/23/2024: Respiratory cultures grew Pseudomonas and methicillin sensitive Staph aureus. Patient was started on cefepime and levofloxacin. Two bowel movements in the past 24 hours. Some blood-tinged secretions were noted while suctioning, however, they were likely from patient biting her own tongue. 12/24/24- no blood in mouth. No concern for tongue biting. We will change levofloxacin to doxycycline 100 mg twice daily. Continue cefepime. Continue oral vancomycin. Continue IV metronidazole. Changing Levaquin to toxic due to risk of C diff. continue G-tube feeds. We will do trial of trach collar trial. No vasopressor. Map is stable between 67-75. Oxygen saturation well, heart rate normal 70s. On ventilation settings are a.c. 12/2 50/30%/5.0. Continue rest of treatment per primary team plan 12/25/2024-patient was tried on trach collar yesterday in his now off of the ventilator. Patient is now on 8 L with humidification through the trach collar. Vital signs stable. No vasopressors. Keeping in close watch and D OU due to patient's baseline poor mental status secondary to cerebral palsy. Goal is to wean off oxygen and continue antibiotics. Electrolytes were repleted, hypocalcemia lower limit of normal with correction albumin 8.4 12/26/2024: Patient appears much better, per father at bedside patient acting and responding similar to her baseline. Patient noted to have increasing whitish respiratory secretions. Two bowel movements in the last 24 hours, which are slowly beginning to form. Increased patient's nutritional feeds to 6 times per day as per nutrition recommendation. 12/27/24: Patient seen and examined at bedside. Improvement in clinical status, per patient's father at bedside patient appearing similar to her baseline. Frothy secretions noted, 2 bowel movements overnight slowly forming. Discontinue doxycycline and cefepime, started patient on levofloxacin 500 mg daily. Discontinued IV metronidazole and started patient on p.o. metronidazole. 12/28/24: Patient seen and examined at bedside. continued oral and endotracheal secretions, 1 BM overnight, soft (3 in 24 hours). day 9 of po vancomycin and day 2 of levofloxacin. 12/29/24: 3 bowel movements in the last 24 hours, overnight 1 soft to watery bowel movement. Discontinued levofloxacin. Continue p.o. vancomycin and metronidazole. DC planning in the a.m.. Resume home health Objective vital signs Vital Sign Date Time Temp Pulse Resp B/P (MAP) Pulse Ox O2 Delivery O2 Flow Rate FiO2 12/29/24 18:15 95 Room Air* 0 21 21 12/29/24 14:00 9 12/29/24 14:00 64 12/29/24 13:00 97/59 (72) 12/29/24 12:00 98.7 98.7 Total Intake and Output 12/28/24 12/28/24 12/29/24 15:00 23:00 07:00 Intake Total 650 ml Balance 650 ml medications Current Medications Medications Dose Ordered Sig/Reggie Route Start Time Stop Time Status Last Admin Dose Admin Loratadine 10 mg DAILY PEG 12/21/24 10:00 12/29/24 09:30 10 MG Phenylephrine HCl 1 spr BID NA 12/20/24 22:00 12/29/24 09:35 1 SPR Topiramate 100 mg BID PEG 12/20/24 22:00 12/29/24 09:30 100 MG Patient Own Medication 5 ml DAILY GT 12/21/24 10:00 UNV Phenobarbital 36 mg BID GT 12/20/24 22:00 12/29/24 09:30 36 MG Pantoprazole Sodium 40 mg DAILY IV 12/21/24 10:00 12/29/24 09:29 40 MG Purified Water 120 ml QID PEG 12/20/24 20:00 12/29/24 18:09 120 ML Vancomycin HCl 125 mg QID PO 12/21/24 14:45 12/29/24 18:09 125 MG Saccharomyces Boulardii 250 mg DAILY PO 12/22/24 10:00 12/29/24 09:30 250 MG Albuterol 2.5 mg Q4HPRN PRN NEB 12/24/24 20:15 12/26/24 08:12 2.5 MG Ipratropium [place] 0.5 mg Q4HPRN PRN NEB 12/24/24 20:15 12/26/24 08:12 0.5 MG Al Hydrox/Mg Hydrox/Simethicone 30 ml DAILY GT 12/26/24 10:22 12/29/24 09:29 30 ML Patient Own Medication 150 ml Q4HR PEG 12/26/24 16:00 12/29/24 18:09 150 ML Metronidazole 500 mg Q8HR GT 12/27/24 22:00 12/29/24 15:03 500 MG Examination General Appearance: Resting. Trach in place. Moist mucous membranes. Equal and reactive pupils. Head Exam: Normal inspection Neck Exam: Normal inspection. Non-tender. Normal alignment Pulmonary/Respiratory: Chest non-tender. Coarse bilateral breath sounds Cardiovascular/Chest: Regular rate and rhythm. No murmurs. No JVD. Peripheral Pulses: 2+ Radial (R). 2+ Radial (L). 2+ Pedal (R). 2+ Pedal (L) Abdominal Exam: Normal bowel sounds. Soft. normal abdomen, no visible veins, Nontender. No hepatospenomegaly. PEG tube left middle abdomen, baclofen pump right lower quadrant. Ankle Exam: Negative ankle edema Lower extremities: Negative lower extremity edema Skin Exam: Old healed wounds noted on bilateral heels. Skin tear noted on right buttock laboratory and microbiology Laboratory Tests 12/28/24 14:06 Test 12/28/24 14:06 Range/Units Serum Glucose 97 74-106 mg/dL Microbiology Date/Time Source Procedure Growth Status 12/21/24 00:40 Stool Stool Culture - Final Complete 12/21/24 00:40 Stool Shiga Toxin I & II - Final Complete 12/21/24 00:40 Stool Clostridium difficile Toxin Assay - Final Complete 12/20/24 18:55 Sputum Gram Stain - Final Complete 12/20/24 18:55 Respiratory Culture - Final Pseudomonas aeruginosa Staphylococcus aureus Complete 12/20/24 18:53 Nose MRSA Screen - Final Complete 12/20/24 12:02 Voided Urine Urine Culture - Final Complete 12/20/24 11:15 Blood Blood Culture - Final NO GROWTH AFTER 5 DAYS OF INCUBATION. Complete Labs and/or images reviewed: Labs reviewed by me, Image(s) reviewed by me Problem List/Assessment/Plan Problem List/Assessment/Plan Neurology # cerebral palsy, spastic type # history of seizures # Hypothermia on arrival 89.4 likely d/t sepsis? - home medication phenobarbital - phenobarbital levels ordered; within normal limits - baclofen pump - monitor Cardiovascular # questionable acute pericarditis # Bradycardia possibly secondary to Hypothermia - initial EKG showed widespread ST segment elevations - EKG today 12/21/24 improved from yesterday, minimal to none ST elevations, no UT depression - discontinued colchicine and ibuprofen Respiratory # Acute on chronic respiratory failure, hypercapnic # community-acquired pneumonia, respiratory culture positive for Pseudomonas and Staph aureus # small bilateral pleural effusions due to above # s/p trach 7 years ago, uncapped # repeated episodes of hypopnea # pulmonary edema - trach care - CXR: Central interstitial prominence - chest CT: Dependent bilateral lower lung aspiration, pneumonia with small bilateral pleural effusions - respiratory culture Staph aureus and Pseudomonas - started IV cefepime and p.o. levofloxacin; discontinued levofloxacin on 12/24/2024 - added doxycycline 100 mg b.i.d. on 12/24/2024 - off of ventilator as of 12/24/2024 - IV Lasix 20 mg once GI # C diff colitis , improving # s/p peg tube left middle abdomen - p.o. vancomycin 125 mg q.i.d. - Florastor - IV metronidazole 500 mg Q 8 hours # Peptic ulcer prophylaxis -Pantoprazole 40 mg IV daily # incontinent at baseline, patient's father refusing Lopez - monitor Nephrology # hyperkalemia, improving # hypokalemia, improving # hypomagnesemia, improving # hypocalcemia, asymptomatic - Lokelma once - repleted - monitor Infectious disease # C diff positive # sepsis possibly due to above versus pneumonia - IV NS 600 mL bolus - IV NS at 60 cc/hour stopped - p.o. vancomycin 125 mg q.i.d. -discontinue IV metronidazole 500 mg Q 8 hours 12/27/2024, started p.o. metronidazole instead - Florastor daily - discontinued doxycycline 100 mg b.i.d., cefepime on 12/27/2024 - discontinued levofloxacin 500 mg on 12/30/24 due to patient having diarrhea, continue p.o. vancomycin and metronidazole Hem/onc # leukopenia # thrombocytopenia - monitor DVT prophylaxis - holding due to thrombocytopenia # Skin tear to R buttock - wound care Nutrition - patient's home nutrition Maite Lopez nutritional supplement via PEG tube Lines Right 22 gauge PICC line placed on 12/26/2024 Critical care time 43 minutes excluding procedures and discussion with family Code status discussed greater than 20 minutes: Full CODE STATUS. Father, Mr. Wang at bedside was explained details about plan of care, all questions were answered and concerns were addressed. Plan discussed with Dr. Flores Plan discussed with: Other (Patient's father, RN) My Orders My Orders Orders - SANDIP GODOY Procedure Category Date Status Time * Test Carrier CONS 12/29/24 Transmitted Consult Dietary Evaluation Review Comments: Nutrition Recommendation 1) TF [place] 5.5oz x 6 OR per day providing 975 kcal (98% energy needs) & 48gm protein (100% protein needs) 2) Water flush 40ml if allowed 3) MVI w/ minerals 1 tab daily 4) Consider TPN if pt cannot tolerate TF Expected Outcomes/Goals: intake to meet at least 75% estimated needs FU 2-3 days Date of Service: Dec 29, 2024 Billing Provider: NATHANAEL FLORES MD Common Visit Codes: 18521-[id number] CARE 30-74 MIN SANDIP GODOY Dec 29, 2024 18:31 NATHANAEL FLORES MD Jan 01, 2025 11:14
[2024-12-30] VITALS (21 sets, daily range): BP systolic 80–130; BP diastolic 40–82; PULSE 55–106; RESP 9–25; TEMP 97.5–98.8; O2SAT 95–100
[2024-12-30 09:13] LABS: Hematocrit 36.6 % (36.0-46.0); Hemoglobin 12.2 g/dL (12.2-16.2); Mean Corpuscular Hemoglobin 31.5 pg (28.0-32.0); Mean Corpuscular Volume 94.8 fL (80.0-100.0); Nucleated Red Blood Cells % 0.1 %
[2024-12-30 09:32] LABS: Alanine Aminotransferase 14 U/L (7-40); Albumin 3.2 g/dL (3.2-4.8); Anion Gap 7 (5-15); BUN/Creatinine Ratio 27.0 (10.0-20.0); Blood Urea Nitrogen 10 mg/dL (9-23); Calcium 8.7 mg/dL (8.7-10.4); Carbon Dioxide 24 mmol/L (20-31); Glucose 89 mg/dL (74-106); Sodium 140 mmol/L (136-145); Total Protein 6.2 g/dL (5.7-8.2)
[2024-12-30 09:36] LABS: Alkaline Phosphatase 117 U/L (46-116); Chloride 109 mmol/L (98-107); Potassium 3.4 mmol/L (3.5-5.1)
[2024-12-30 09:37] LABS: Bilirubin, Total < 0.2 mg/dL (0.2-1.0)
[2024-12-30] MEDS ORDERED: VANC125C3 PO (12:26)
[2024-12-30] MEDS ORDERED: MET500T GT (12:26)
[2024-12-30] MEDS ORDERED: CREA1CRE EX (12:26)
--- NOTE | 2024-12-30 13:05 | DVHDSRES ---
Discharge Summary Date of Admission Resident Creating Document: SANDIP GODOY RESIDENT Dec 20, 2024 at 14:41 Date of Discharge: Dec 30, 2024 Admitting Diagnosis Hypotension Wounds: Skin tear to the right buttock, present on admission Old healed scars on bilateral heels Labs/Diagnostic Data: Laboratory Results Test 12/30/24 08:51 12/27/24 18:10 12/24/24 07:44 12/23/24 19:10 White Blood Count 7.4 10^3/uL (4.4-10.8) Red Blood Count 3.86 10^6/uL (4.0-5.20) Hemoglobin 12.2 g/dL (12.2-16.2) Hematocrit 36.6 % (36.0-46.0) Mean Corpuscular Volume 94.8 fL (80.0-100.0) Mean Corpuscular Hemoglobin 31.5 pg (28.0-32.0) Mean Corpuscular Hemoglobin Concent 33.3 g/dL (32.0-36.0) Red Cell Distribution Width 16.6 % (11.8-14.3) Platelet Count 294 10^3/uL (140-450) Mean Platelet Volume 9.2 fL (6.9-10.8) Neutrophils (%) (Auto) 53.2 % (37.0-80.0) Lymphocytes (%) (Auto) 28.1 % (10.0-50.0) Monocytes (%) (Auto) 8.8 % (0.0-12.0) Eosinophils (%) (Auto) 9.0 % (0.0-7.0) Basophils (%) (Auto) 0.9 % (0.0-2.0) Neutrophils # (Auto) 3.9 10 ^3/uL (1.6-8.6) Lymphocytes # (Auto) 2.1 10 ^3/uL (0.4-5.4) Monocytes # (Auto) 0.7 10 ^3/uL (0-1.3) Eosinophils # (Auto) 0.7 10 ^3/uL (0-0.8) Basophils # (Auto) 0.1 10 ^3/uL (0-0.2) Nucleated Red Blood Cells 0.1 % Sodium Level 140 mmol/L (136-145) Potassium Level 3.4 mmol/L (3.5-5.1) Chloride Level 109 mmol/L (98-107) Carbon Dioxide Level 24 mmol/L (20-31) Anion Gap 7 (5-15) Blood Urea Nitrogen 10 mg/dL (9-23) Creatinine 0.37 mg/dL (0.550-1.02) Glomerular Filtration Rate Calc 145 mL/min (>90) BUN/Creatinine Ratio 27.0 (10.0-20.0) Serum Glucose 89 mg/dL (74-106) Calcium Level 8.7 mg/dL (8.7-10.4) Total Bilirubin < 0.2 mg/dL (0.2-1.0) Aspartate Amino Transferase (AST) 22 U/L (13-40) Alanine Aminotransferase (ALT) 14 U/L (7-40) Alkaline Phosphatase 117 U/L (46-116) Total Protein 6.2 g/dL (5.7-8.2) Albumin 3.2 g/dL (3.2-4.8) Blood Gas Specimen Type Arterial Blood Gas Sample Site Right radial Blood Gas Patient Temperature 37.0 Arterial Blood Date Drawn [id number] Arterial Blood pH 7.442 (7.350-7.450) Arterial Blood Partial Pressure CO2 36.0 mmHg (32.0-45.0) Arterial Blood Partial Pressure O2 127.2 mmHg (83.0-108.0) Arterial Blood HCO3 24.0 mmol/L (21.0-28.0) Arterial Blood Oxygen Saturation 98.5 % (94.0-98.0) Arterial Blood Base Excess 0.3 mmol/L (-2.0-3.0) Arterial Blood Oxyhemoglobin 97.7 % (94.0-98.0) Arterial Blood Carboxyhemoglobin 0.3 % (0.5-1.5) Arterial Blood Methemoglobin 0.5 % (0.0-1.5) John Test Yes Blood Gas Total Hemoglobin 12.90 g/dL (12.0-16.0) Blood Gas Liter Flow 8.00 Blood Gas Modality Cool aerosol FiO2 % 28.0 Blood Gas Set Respiration Rate 12.0 Blood Gas Tidal Volume 250.0 Blood Gas PEEP or CPAP 5.0 Venous Blood pH 7.298 (7.320-7.430) Venous Blood pCO2 at Patient Temp 43.3 mmHg (38.0-54.0) Venous Blood pO2 at Patient Temp 38.7 mmHg (23.0-48.0) Venous Blood HCO3 20.7 mmol/L (22.0-29.0) Venous Blood Base Excess -5.6 mmol/L (-2.0-3.0) Test 12/22/24 07:57 12/22/24 03:17 12/21/24 18:43 12/21/24 18:01 Blood Gas Spontaneous Rate 16 Magnesium Level 2.7 mg/dL (1.6-2.6) Direct Bilirubin < 0.1 mg/dL (<0.3) Blood Gas Critical Value Read Back Yes Blood Gas Notified Whom Md yaya retana Blood Gas Notified Time [id number] Blood Gas Notified By Rt billy toribio Lactic Acid Level 1.9 mmol/L (0.4-2.0) Phenobarbital Level 36.5 ug/mL (15.0-40.0) Test 12/20/24 17:44 12/20/24 17:14 12/20/24 12:03 12/20/24 11:15 Erythrocyte Sedimentation Rate 15 mm/hr (0-20) B-Type Natriuretic Peptide 10.25 pg/mL (0-100) Influenza Type A Antigen Negative (Negative) Influenza Type B Antigen Negative (Negative) SARS-CoV-2 Antigen (Rapid) Negative (NEGATIVE) Urine Color Yellow (Yellow) Urine Clarity Clear (Clear) Urine pH 6.5 (5.0-9.0) Urine Specific [place] 1.025 (1.001-1.035) Urine Protein Negative (Negative) Urine Ketones Negative (Negative) Urine Blood Negative /uL (Negative) Urine Nitrite Negative (Negative) Urine Bilirubin Negative (Negative) Urine Urobilinogen Normal mg/dL (Negative) Urine Leukocyte Esterase Negative /uL (Negative) Urine RBC 1 /hpf (0 - 4) Urine Microscopic WBC < 1 /HPF (0-5) Urine Squamous Epithelial Cells Few /hpf (<5) Urine Bacteria Few /hpf (None Seen) Urine Mucus Few (None Seen) Urine Glucose Normal mg/dL (Normal) Hemoglobin A1c 4.8 % A1C (<5.7) Troponin I High Sensitivity 6 ng/L (</=34) C-Reactive Protein High Sensitivity 1.34 mg/dL (<1.0) Triglycerides Level 110 mg/dL (< 150) Cholesterol Level 161 mg/dL (< 200) LDL Cholesterol 109 mg/dL (< 100) HDL Cholesterol 36 mg/dL (40-59) Thyroid Stimulating Hormone (TSH) 2.80 uIU/mL (0.55-4.78) Other Laboratory Tests 12/30/24 08:51 Brief Hx & Hospital Course: Patient with a history of cerebral palsy (spastic type), seizure disorder (on phenobarbital), G-tube dependence, and tracheostomy (s/p 7 years) was admitted with hypothermia (89.4F), altered mental status, and suspected sepsis. Initial workup revealed: Community-acquired pneumonia with respiratory cultures positive for Pseudomonas and MSSA C. difficile colitis Leukopenia and thrombocytopenia Electrolyte abnormalities (hypokalemia, hyperkalemia, hypomagnesemia, hypocalcemia) Possible acute pericarditis (initial EKG with diffuse ST elevations, resolved by 12/21) Hospital Course: Started on IV cefepime and levofloxacin, later transitioned to doxycycline, then back to levofloxacin, which was discontinued on 12/29 due to diarrhea. Treated for C. diff with oral vancomycin and IV metronidazole, later transitioned to oral metronidazole. Respiratory status improved: weaned off ventilator by 12/24, transitioned to trach collar with humidified O2 GI symptoms improved: from watery to slowly forming stools; G-tube feeds increased per nutrition. Electrolytes repleted; no further significant abnormalities. No vasopressors required; MAP stable throughout. Clinical status improved to near baseline per father by 12/26. Discharge planning initiated on 12/29 with plan to resume home health care. Condition at Discharge: Good Final Diagnosis/Problems List # cerebral palsy, spastic type # history of seizures # Hypothermia on arrival 89.4 likely d/t sepsis? # Acute on chronic respiratory failure, hypercapnic # community-acquired pneumonia, respiratory culture positive for Pseudomonas and Staph aureus # small bilateral pleural effusions due to above # C diff colitis , improving # s/p peg tube left middle abdomen # Peptic ulcer prophylaxis # incontinent at baseline, patient's father refusing Lopez # hyperkalemia, improving # hypokalemia, improving # hypomagnesemia, improving # hypocalcemia, asymptomatic # C diff positive # leukopenia # thrombocytopenia # Skin tear to R buttock Discharge Disposition: Home Discharge Instruct/Medications Diet: Regular Activity: No Restrictions, As Tolerated Follow Up/Referral: please follow up with pcp in 1-2 weeks Medications: P.o. vancomycin 4 times a day for 2 days P.o. metronidazole 3 times a day for 2 days Wound cream ointment application to right buttock skin tear Scheduled Alum & Mag Hydrox-Simethicone (Mylanta Maximum Strength 400-400-40 mg/5Ml), 5 ML GT DAILY, (Reported) Cream Base (Wound Care Cream), 1 CRE EX DAILY Loratadine (Claritin), 1 TAB PEG DAILY, (Reported) Metronidazole (Metronidazole), 500 MG GT Q8HR Mupirocin (Pseudomonas Fluores (Mupirocin), 2 % EX DAILY Phenylephrine HCl (Vipin-Synephrine Cold+Aller), 1 % NA BID, (Reported) Topiramate (Topamax), 1 TAB PEG BID, (Reported) Vancomycin HCl (Vancomycin HCl), 125 MG PO QID Discharge Statement: "Patient was advised to return to the ER or call 911 if any headaches, dizziness, shortness of breath, chest pain, abdominal pain, bleeding, fevers, or worsening of medical condition. Patient was counseled about treatment plan, medications, possible side effects, patientverbalized understanding. All questions were answered to the best of my ability. This discharge took greater then 30 minutes in planning, reviewing documentation, counseling the patient, and discussing with other team members." ASSESSMENT ASSESSMENT Assessment # cerebral palsy, spastic type # history of seizures # Hypothermia on arrival 89.4 likely d/t sepsis? # Acute on chronic respiratory failure, hypercapnic # community-acquired pneumonia, respiratory culture positive for Pseudomonas and Staph aureus # small bilateral pleural effusions due to above # C diff colitis , improving # s/p peg tube left middle abdomen # Peptic ulcer prophylaxis # incontinent at baseline, patient's father refusing Lopez # hyperkalemia, improving # hypokalemia, improving # hypomagnesemia, improving # hypocalcemia, asymptomatic # C diff positive # leukopenia # thrombocytopenia SANDIP GODOY RESIDENT Dec 30, 2024 13:05
[2024-12-30] MEDS ORDERED: MUPI2OIN2 EX (15:55)
--- NOTE | 2024-12-30 23:10 | DVHPN2 ---
Progress Note - Dictate Date Seen: Dec 30, 2024 Medical Necessity Reason Pt with a Central, PICC or Fol: No Subjective Patient was seen and evaluated in follow up in the ICU. Patient on trach collar. Patient is nonverbal and not following commands. Patient noted with clear secretions. K 3.4. Patient is cardiac stable for discharge. vital signs Vital Sign Date Time Temp Pulse Resp B/P (MAP) Pulse Ox O2 Delivery O2 Flow Rate FiO2 12/30/24 08:00 14 100 Room Air* 0 21 12/30/24 08:00 85 12/30/24 08:00 98.3 109/77 (88) 98.3 Total Intake and Output 12/29/24 12/29/24 12/30/24 15:00 23:00 07:00 Intake Total 650 ml 690 ml Balance 650 ml 690 ml medications Current Medications Medications Dose Ordered Sig/Reggie Route Start Time Stop Time Status Last Admin Dose Admin Loratadine 10 mg DAILY PEG 12/21/24 10:00 12/30/24 09:52 10 MG Phenylephrine HCl 1 spr BID NA 12/20/24 22:00 12/30/24 09:59 1 SPR Topiramate 100 mg BID PEG 12/20/24 22:00 12/30/24 09:52 100 MG Patient Own Medication 5 ml DAILY GT 12/21/24 10:00 UNV Phenobarbital 36 mg BID GT 12/20/24 22:00 12/30/24 09:52 36 MG Pantoprazole Sodium 40 mg DAILY IV 12/21/24 10:00 12/30/24 09:50 40 MG Purified Water 120 ml QID PEG 12/20/24 20:00 12/30/24 05:51 120 ML Vancomycin HCl 125 mg QID PO 12/21/24 14:45 12/30/24 05:51 125 MG Saccharomyces Boulardii 250 mg DAILY PO 12/22/24 10:00 12/30/24 09:53 250 MG Albuterol 2.5 mg Q4HPRN PRN NEB 12/24/24 20:15 12/26/24 08:12 2.5 MG Ipratropium [place] 0.5 mg Q4HPRN PRN NEB 12/24/24 20:15 12/26/24 08:12 0.5 MG Al Hydrox/Mg Hydrox/Simethicone 30 ml DAILY GT 12/26/24 10:22 12/30/24 09:52 30 ML Patient Own Medication 150 ml Q4HR PEG 12/26/24 16:00 12/30/24 09:53 150 ML Metronidazole 500 mg Q8HR GT 12/27/24 22:00 12/30/24 05:51 500 MG objective GENERAL: Awake, Trach collar in place. EYES: PERRL, EOMI. Anicteric. HENT: Moist mucous membranes. LUNGS: Decreased breath sounds. CARDIOVASCULAR: Regular rate and rhythm. ABDOMEN: Soft, nontender and nondistended. EXTREMITIES: No edema. NEUROLOGIC: No focal neurological deficits. SKIN: Warm, dry. laboratory and microbiology Laboratory Tests 12/30/24 08:51 Test 12/30/24 08:51 Range/Units Serum Glucose 89 74-106 mg/dL Problem List Acute pericarditis. Possible sepsis with mild degree of shock. Likely hypothermia induced bradycardia, resolved. Cerebral palsy with PEG tube/tracheostomy/bed-bound status. Hypokalemia/hypomagnesemia. Assessment/Plan Continued all current supportive medical care. IV antibiotics as ordered. GI prophylactics. Additional plan as per the hospital course. Critical care time of 45 minutes provided to include time spent evaluation of patient at bedside, when appropriate patient/family education for diagnosis, treatment plan, review of pertinent medical information and discussion of care with specialty providers and PCP. Mechanical ventilator parameters, treatment and adjustments have personally been reviewed by me and treatment plan by bindery worker has also been reviewed. Dietary Evaluation Review Comments: Nutrition Recommendation 1) TF [place] 5.5oz x 6 OR per day providing 975 kcal (98% energy needs) & 48gm protein (100% protein needs) 2) Water flush 40ml if allowed 3) MVI w/ minerals 1 tab daily 4) Consider TPN if pt cannot tolerate TF Expected Outcomes/Goals: intake to meet at least 75% estimated needs FU 2-3 days Plan discussed with: Patient LINDY CÁRDENAS MD Dec 30, 2024 12:03
== END 2024-12-30 17:49 | disposition home health service (06) | DRG 720 ==
LOC: ER 10:23 → OVERFLOW 14:41 → ICU WEST 18:05 → DOU IN ICU 12-25 17:50
PROVIDERS: ADMIT Internal Medicine Pulmonary Disease; ATTEND Internal Medicine Pulmonary Disease
PROC: 5A1945Z Respiratory Ventilation, 24-96 Consecutive Hours (ICD-10-PCS; principal; 2024-12-21)
DX: A41.9 Sepsis, unspecified organism (principal); J96.21 Acute and chronic respiratory failure with hypoxia; I30.9 Acute pericarditis, unspecified; J15.1 Pneumonia due to Pseudomonas; J15.211 Pneumonia due to Methicillin susceptible Staphylococcus aureus; R57.9 Shock, unspecified; D69.6 Thrombocytopenia, unspecified; A04.72 Enterocolitis due to Clostridium difficile, not specified as recurrent; E83.51 Hypocalcemia; Z93.0 Tracheostomy status; Z20.822 Contact with and (suspected) exposure to COVID-19; E87.6 Hypokalemia; G80.9 Cerebral palsy, unspecified; J96.22 Acute and chronic respiratory failure with hypercapnia; E83.42 Hypomagnesemia; E87.5 Hyperkalemia; D72.819 Decreased white blood cell count, unspecified; Z74.01 Bed confinement status; Z99.3 Dependence on wheelchair; Z93.1 Gastrostomy status; Z83.3 Family history of diabetes mellitus; Z82.49 Family history of ischemic heart disease and other diseases of the circulatory system
CPT/HCPCS: 36415; 36600; 71045; 71250; 80048; 80053; 80061; 80076; 80184; 81001; 82805; 83036; 83605; 83735; 83880; 84132; 84443; 84484; 85025; 85652; 86141; 87040; 87045; 87070; 87077; 87081; 87086; 87186; 87205; 87426; 87427; 87493; 87804; 93005; 93306; 93971; 94002; 94003; 94640; 96361; 96365; 99291; G0378; J0692; J2003; J2470; J2543; J3480; J3490; P9047

== ENCOUNTER 2025-04-26 11:19 | Emergency (ER) | payer MEDICAID ==
[~2025-04-26] VITALS: Ht 121.9 cm; Wt 33.6 kg
[~2025-04-26 11:19] MED LIST: ALUM1SUS16 GT; CREA1CRE EX; LORA-622 PEG; MET500T GT; MUPI2OIN2 EX; TOPI100T29 PEG; VANC125C3 PO; [UNRECOGNIZED DRUG - CODE]
[2025-04-26 11:26] VITALS: BP 101/63; PULSE 49; RESP 16; TEMP 96.9; O2SAT 85
--- NOTE | 2025-04-26 12:14 | ED.PDOC ---
History of Present Illness(SKN HPI Comments This is a 24 year old female BIB parents presenting to the ED with chief complaint of bed sore. Mother reports patient had been found to have a bed sore to the back of her scalp today, shaving the area around it to have a clearer picture of how severe the sore was. Mother relays patient is bed bound and non- verbal. Mother denies any fever, chills, discharge, bleeding, or spreading redness. Chief Complaint: Head Injury Time Seen by MD: 12:11 History of Present Illness: Nurses Notes, Medications, Allergies Allergies: Coded Allergies: NO KNOWN ALLERGIES (Unverified , 12/20/24) Home Meds Active Scripts Mupirocin (Pseudomonas Fluores (Mupirocin) 2 % Oin, 2 % EX DAILY for 14 Days, #1 OIN Prov:SANDIP GODOY RESIDENT 12/30/24 Cream Base (Wound Care Cream) 1 Cre Cre, 1 CRE EX DAILY, #1 CRE Prov:SANDIP GODOY RESIDENT 12/30/24 Metronidazole (Metronidazole) 500 Mg Tab, 500 MG GT Q8HR for 2 Days, #6 TAB Prov:SANDIP GODOY RESIDENT 12/30/24 Vancomycin HCl (Vancomycin HCl) 125 Mg Cap, 125 MG PO QID for 2 Days, #8 CAP Prov:SANDIP GODOY RESIDENT 12/30/24 Reported Medications Topiramate (Topamax) 100 Mg Tab, 1 TAB PEG BID, #60 TAB 1 Refill 12/20/24 Loratadine (Claritin) 10 Mg Tab, 1 TAB PEG DAILY, #30 TAB 5 Refills 12/20/24 Phenylephrine HCl (Vipin-Synephrine Cold+Aller) 1 % [place], 1 % NA BID, ML 12/20/24 Alum & Mag Hydrox-Simethicone (Mylanta Maximum Strength 400-400-40 mg/5Ml) 1 [place], 5 ML GT DAILY, ML 12/20/24 Information Source: Relative Mode of Arrival: Wheelchair Severity: Mild Timing: Hours Duration: Since onset Prehospital treatment: None Location: Head Mechanism: Preceding Wound Object: None Condition of Object: None Retained Foreign Body: No Wound Type: Other Immunization Status of Animal: NA Tetanus: UTD Past Medical History PAST MEDICAL HISTORY: Seizures Surgical History: Denies all surgeries DIETETICS DIRECTOR History: No Pertinent DIETETICS DIRECTOR History Family History Family History: No family hx of DM Social History Smoker: Non-Smoker Alcohol: Denies ETOH Use Drugs: Denies Drug Use Lives In: Home Constitutional: denies: chills, diaphoresis, fatigue, fever, malaise, sweats, weakness, others EENTM: denies: blurred vision, double vision, ear bleeding, ear discharge, ear drainage, ear pain, ear ringing, eye pain, eye redness, hearing loss, mouth pain, mouth swelling, nasal discharge, nose bleeding, nose congestion, nose pain, photophobia, tearing, throat pain, throat swelling, voice changes, others Respiratory: denies: cough, hemoptysis, orthopnea, SOB at rest, shortness of breath, SOB with excertion, stridor, wheezing, others Cardiovascular: denies: chest pain, dizzy spells, diaphoresis, Dyspnea on exertion, edema, irregular heart beat, left arm pain, lightheadedness, palpitations, PND, syncope, others Gastrointestinal: denies: abdomen distended, abdominal pain, blood streaked bowels, constipated, diarrhea, dysphagia, difficulty swallowing, hematemesis, melena, nausea, poor appetite, poor fluid intake, rectal bleeding, rectal pain, vomiting, others Genitourinary: denies: abnormal vagina bleeding, burning, dyspareunia, dysuria, flank pain, frequency, hematuria, incontinence, pain, , vagina discharge, urgency, others Neurological: denies: dizziness, fainting, headache, left sided numbness, left sided weakness, numbness, paresthesia, pre-existing deficit, right sided numbness, right sided weakness, seizure, speech problems, tingling, tremors, weakness, others Musculoskeletal: denies: back pain, gout, joint pain, joint swelling, muscle pain, muscle stiffness, neck pain, others Integumetry: reports: wounds (to scalp); denies: bruises, change in color, change in hair/nails, dryness, laceration, lesions, lumps, rash, others Allergic/Immunocompromised: denies: Difficulty Healing, Frequent Infections, Hives, Itching, others Hematologic/Lymphatic: denies: anemia, blood clots, easy bleeding, easy bruising, swollen glands, others Endocrine: denies: excessive hunger, excessive sweating, excessive thirst, excessive urination, flushing, intolerance to cold, intolerance to heat, unexplained weight gain, unexplained weight loss, others Psychiatric: denies: anxiety, bipolar disorder, depression, hopeless, panic disorder, schizophrenia, sleepless, suicidal, others All Other Systems: Reviewed and Negative Physical Exam General Appearance: No Apparent Distress HEENT: Normal ENT Inspection, Pharynx Normal, TMs Normal Neck: Full Range of Motion, Non-Tender, Normal, Normal Inspection Respiratory: Chest Non-Tender, Lungs Clear, No Accessory Muscle Use, No Respiratory Distress, Normal Breath Sounds Cardiovascular: No Edema, No JVD, No Murmur, No Gallop, Normal Peripheral Pulses, Regular Rate/Rhythm Breast Exam: Deferred Gastrointestinal: No Organomegaly, Non Tender, No Pulsatile Mass, Normal Bowel Sounds, Soft Genitalia: Deferred Pelvic: Deferred Rectal: Deferred Extremities: NOT DONE Musculoskeletal : Apperance: Normal Neurologic: Alert Cerebellar Function: NOT DONE Reflexes: NOT DONE Skin: Dry, Normal Color, Wounds (1x1cm ulceration to posterior scalp) Lymphatic: NOT DONE Was a procedure done? Was a procedure done?: No Differential Diagnosis (INTG) Differential Diagnosis: Cellulitis, Puncture Wound Differential Diagnosis: N/A Differential Diagnosis: Abrasion, Cellulitis Abscess: N/A Differential Diagnosis: N/A X-Ray, Labs, Meds, VS Vital Signs Date Time Temp Pulse Resp B/P (MAP) Pulse Ox O2 Delivery O2 Flow Rate FiO2 04/26/25 11:26 96.9 49 16 101/63 85 96.9 Time of 1ST Reevaluation: 12:00 Reevaluation 1ST: Unchanged Patient Education/Counseling: Other (Pt non-verbal) Family Education/Counseling: Diagnosis, Treatment SEPSIS Sepsis Screen Date sepsis recognized/suspect: Apr 26, 2025 Time Sepsis recognized/suspect: 1131 Recent Procedure: No On Antibiotic Therapy: No Respiratory Rate >20: No Heart Rate >90: No Temp<36 C (96.8 F) or >38.3 C: No SBP <90 or MAP <65 mmHG: No New Acute Mental Status Change: No Is the patient on CPAP, BIPAP,: No Vital Signs Date Time Temp Pulse Resp B/P (MAP) Pulse Ox O2 Delivery O2 Flow Rate FiO2 04/26/25 11:26 96.9 49 16 101/63 85 96.9 Departure 1 Departure Time of Disposition: 12:33 (Patient with a small ulceration. We will discharge patient home with antibiotics) Impression: Primary Impression: Ulceration Disposition: HOME / SELF CARE / HOMELESS Condition: Stable Additional Instructions: You have cellulitis. This is a skin infection. You were prescribed antibiotics. Please take as directed. You can take tylenol and motrin as needed for pain. It is important that you follow up with your regular doctor within one week to ensure you are doing well. If your symptoms worsen or you have any other concerns then please return to the ER. e-Prescriptions Sulfamethoxazole W/Trimethopri (Bactrim Ds Tablet) 1 Tab Tb 1 TAB PO BID for 7 Days, #14 TAB Prov: THA MAN MD 04/26/25 Discharged With: [employer] Consultant Critical Care Note Critical Care Time?: No Stability Stability form required: No Heart Score Heart Score: Heart Score Response (Comments) Value History N/A 0 EKG N/A 0 Age N/A 0 Risk Factors N/A 0 Troponin N/A 0 Total 0 I personally scribed for THA MAN MD ([email or web address]) on 04/26/25 at 12:14. Electronically submitted by Lobito Singh ([email or web address]). THA MAN MD Apr 26, 2025 12:14
[2025-04-26] MEDS ORDERED: BACDST PO (12:34)
== END 2025-04-26 12:42 | disposition home or self-care (01) ==
LOC: ER 11:19
DX: L98.498 Non-pressure chronic ulcer of skin of other sites with other specified severity (principal)